=== PATIENT | female | born 1950 | race Caucasian/White ===

== ENCOUNTER → 2023-12-28 11:34 | Outpatient (REF) | payer MEDICARE, OTHER, SELFPAY ==
[2023-12-28 12:02] LABS: % Basophils 0.5 % (0-2); % Eosinophils 2.9 % (0-6); % Immature Granulocytes 0.7 % (0-0.5); % Lymphocytes 30.1 % (20.5-51.1); % Monocytes 9.3 % (1.7-9.3); % Neutrophils 56.5 % (42.2-75.2); Absolute Eosinophils 0.2 10^3/uL (0-0.7); Absolute Lymphocytes 1.8 10^3/uL (1.2-3.4); Absolute Monocytes 0.6 10^3/uL (0.1-0.6); Absolute Neutrophils 3.5 10^3/uL (1.4-6.5); Hematocrit 34.3 % (37.0-47.0); Hemoglobin 11.8 g/dL (12.0-16.0); Mean Corp Hgb Conc. 34.4 g/dL (33.0-37.0); Mean Corpuscular Hgb 31.5 pg (27.0-31.0); Mean Corpuscular Volume 91.5 fL (81.0-99.0); Mean Platelet Volume 9.1 fL (7.4-10.4); Nucleated Red Blood Cells % 0 %; Platelet Count 397 10^3/uL (130-400); Red Blood Cell Count 3.75 10^6/uL (4.20-5.40); Red Cell Dist. Width 12.4 % (11.5-14.5); White Blood Cell Count 6.1 10^3/uL (4.8-10.8)
[2023-12-28 12:55] LABS: ALT (SGPT) 15 U/L (0-35); AST (SGOT) 18 U/L (14-36); Albumin 3.9 g/dl (3.5-5.0); Alkaline Phosphatase 65 U/L (38-126); Blood Urea Nitrogen 15 mg/dl (7-17); Calcium 9.4 mg/dl (8.4-10.2); Carbon Dioxide 23 mmol/L (22-30); Chloride 105 mmol/L (98-107); Glucose 101 mg/dl (70-99); Potassium 4.5 mmol/L (3.5-5.1); Sodium 138 mmol/L (135-145); Total Bilirubin 0.6 mg/dl (0.2-1.3); Total Protein 6.9 g/dl (6.3-8.2); eGFR > 60.00
== END ==
LOC: OLABPV 11:34
PROVIDERS: ATTENDING PHYSICIAN Physician Assistant
DX: E21.3 Hyperparathyroidism, unspecified (principal); E55.9 Vitamin D deficiency, unspecified; E89.2 Postprocedural hypoparathyroidism; M81.0 Age-related osteoporosis without current pathological fracture; S82.891S Other fracture of right lower leg, sequela; Z51.81 Encounter for therapeutic drug level monitoring; Z98.1 Arthrodesis status
CPT/HCPCS: 36415; 80053; 82306; 85025

== ENCOUNTER 2024-06-27 08:43 | Outpatient (RCR) | payer MEDICARE, OTHER, SELFPAY | END 2024-06-27 23:59 | disposition home or self-care (01) | LOC: RPT 08:43 | PROVIDERS: ATTENDING PHYSICIAN Student in an Organized Health Care Education/Training Program; FAMILY PHYSICIAN Internal Medicine Geriatric Medicine | DX: I89.0 Lymphedema, not elsewhere classified (principal); M25.571 Pain in right ankle and joints of right foot; M79.89 Other specified soft tissue disorders; Z73.6 Limitation of activities due to disability; R26.2 Difficulty in walking, not elsewhere classified | CPT/HCPCS: 97110; 97162; 97535 ==

== ENCOUNTER 2024-07-04 08:30 | Outpatient (RCR) | payer MEDICARE, OTHER, SELFPAY | END 2024-07-04 09:38 | disposition home or self-care (01) | LOC: RPT 08:30 | PROVIDERS: ATTENDING PHYSICIAN Student in an Organized Health Care Education/Training Program; FAMILY PHYSICIAN Internal Medicine Geriatric Medicine | DX: M25.571 Pain in right ankle and joints of right foot (principal); I89.0 Lymphedema, not elsewhere classified; M79.89 Other specified soft tissue disorders | CPT/HCPCS: 97110; 97535 ==

== ENCOUNTER → 2024-09-17 08:07 | Outpatient (REF) | payer MEDICARE, OTHER, SELFPAY | LOC: RAD 08:07 | PROVIDERS: ATTENDING PHYSICIAN Internal Medicine Rheumatology; FAMILY PHYSICIAN Internal Medicine Geriatric Medicine | DX: M81.0 Age-related osteoporosis without current pathological fracture (principal) | CPT/HCPCS: 77080 ==

== ENCOUNTER → 2024-09-21 09:54 | Outpatient (REF) | payer MEDICARE, OTHER, SELFPAY ==
[2024-09-21 10:56] LABS: % Basophils 0.6 % (0-2); % Eosinophils 3.4 % (0-6); % Immature Granulocytes 0.5 % (0-0.5); % Monocytes 6.4 % (1.7-9.3); % Neutrophils 71.1 % (42.2-75.2); Absolute Basophils 0.1 10^3/uL (0-0.2); Absolute Eosinophils 0.3 10^3/uL (0-0.7); Absolute Lymphocytes 1.6 10^3/uL (1.2-3.4); Absolute Monocytes 0.6 10^3/uL (0.1-0.6); Absolute Neutrophils 6.1 10^3/uL (1.4-6.5); Hematocrit 33.1 % (37.0-47.0); Hemoglobin 10.9 g/dL (12.0-16.0); Mean Corp Hgb Conc. 32.9 g/dL (33.0-37.0); Mean Corpuscular Hgb 28.7 pg (27.0-31.0); Mean Corpuscular Volume 87.1 fL (81.0-99.0); Mean Platelet Volume 9.7 fL (7.4-10.4); Nucleated Red Blood Cells % 0 %; Platelet Count 409 10^3/uL (130-400); Red Cell Dist. Width 13.1 % (11.5-14.5); White Blood Cell Count 8.6 10^3/uL (4.8-10.8)
[2024-09-21 10:58] LABS: Urine Albumin Negative (Neg - Trace); Urine Bilirubin Negative (Negative); Urine Character Clear (Clear); Urine Color Yellow; Urine Glucose Negative (Negative); Urine Ketone Negative (Negative); Urine Leukocyte Negative (Negative); Urine Nitrite Negative (Negative); Urine Occult Blood Negative (Negative); Urine Specific Gravity 1.025 (<1.030); Urine Urobilinogen Negative (Neg - 1+)
[2024-09-21 11:24] LABS: Ionized Calcium 1.32 mMOL/L (1.15-1.33)
[2024-09-21 11:31] LABS: ALT (SGPT) 13 U/L (0-35); AST (SGOT) 16 U/L (14-36); Albumin 4.2 g/dl (3.5-5.0); Alkaline Phosphatase 62 U/L (38-126); Blood Urea Nitrogen 22 mg/dl (7-17); Calcium 10.3 mg/dl (8.4-10.2); Carbon Dioxide 22 mmol/L (22-30); Chloride 105 mmol/L (98-107); Creatine Phosphokinase 27 U/L (30-135); Glucose 103 mg/dl (70-99); HDL Cholesterol 44 mg/dl; Iron 45 ug/dl (37-170); LDL Cholesterol, Calculated 165 mg/dl; Magnesium 1.3 mg/dl (1.6-2.3); Potassium 4.6 mmol/L (3.5-5.1); Sodium 141 mmol/L (135-145); Total Bilirubin 0.4 mg/dl (0.2-1.3); Total Cholesterol 249 mg/dl (50-199); Total Protein 7.2 g/dl (6.3-8.2); Triglyceride 202 mg/dl (10-149); Very Low Density Lipoprotein 40 mg/dl (0-30); eGFR 59.49
[2024-09-21 12:02] LABS: TSH Reflex To Free T4 3.75 uIU/ml (0.47-4.68)
[2024-09-21 12:45] LABS: Folate 8.7 ng/ml (2.76-20); Vitamin B12 504 pg/ml (239-931)
[2024-09-21 16:32] LABS: Percent Saturation 14 % (20-50); Total Iron Binding Capacity 321 ug/dl (265-497)
[2024-09-22 08:46] LABS: Intact PTH 33.5 pg/ml (13.6-85.8)
[2024-09-22 23:25] LABS: Insulin, Random 12 uIU/mL
== END ==
LOC: OLABPV 09:54
PROVIDERS: ATTENDING PHYSICIAN Internal Medicine Geriatric Medicine
DX: F32.1 Major depressive disorder, single episode, moderate (principal); G47.00 Insomnia, unspecified; R25.1 Tremor, unspecified; E78.2 Mixed hyperlipidemia; S82.891D Other fracture of right lower leg, subsequent encounter for closed fracture with routine healing; R42 Dizziness and giddiness; I48.0 Paroxysmal atrial fibrillation; R53.83 Other fatigue; F41.9 Anxiety disorder, unspecified; Z23 Encounter for immunization; Z13.89 Encounter for screening for other disorder; I67.1 Cerebral aneurysm, nonruptured; E21.3 Hyperparathyroidism, unspecified; E74.39 Other disorders of intestinal carbohydrate absorption; N95.1 Menopausal and female climacteric states; F34.1 Dysthymic disorder; F39 Unspecified mood [affective] disorder; I10 Essential (primary) hypertension; Z79.899 Other long term (current) drug therapy
CPT/HCPCS: 80053; 80061; 81003; 82306; 82330; 82533; 82550; 82607; 82746; 83036; 83525; 83540; 83550; 83735; 83970; 84443; 85025; 86140

== ENCOUNTER → 2024-12-08 09:00 | Outpatient (REF) | payer MEDICARE, OTHER, SELFPAY | LOC: RAD 09:00 | PROVIDERS: ATTENDING PHYSICIAN Specialist/Technologist Athletic Trainer; FAMILY PHYSICIAN Internal Medicine Geriatric Medicine | DX: S82.891D Other fracture of right lower leg, subsequent encounter for closed fracture with routine healing (principal) | CPT/HCPCS: 73700 ==

== ENCOUNTER → 2024-12-12 11:21 | Outpatient (REF) | payer MEDICARE, OTHER, SELFPAY ==
[2024-12-12 12:35] LABS: Erythrocyte Sed Rate 49 mm/hour (0-20)
[2024-12-12 12:38] LABS: ALT (SGPT) 13 U/L (0-35); AST (SGOT) 16 U/L (14-36); Albumin 4.2 g/dl (3.5-5.0); Alkaline Phosphatase 70 U/L (38-126); Blood Urea Nitrogen 16 mg/dl (7-17); Calcium 9.1 mg/dl (8.4-10.2); Carbon Dioxide 25 mmol/L (22-30); Chloride 103 mmol/L (98-107); Glucose 108 mg/dl (70-99); Phosphorus 2.4 mg/dl (2.5-4.5); Potassium 4.2 mmol/L (3.5-5.1); Sodium 140 mmol/L (135-145); Total Bilirubin 0.4 mg/dl (0.2-1.3); eGFR > 60.00
[2024-12-12 12:46] LABS: Vitamin D, 25-OH*** 34.7 ng/mL (30-80)
[2024-12-12 12:59] LABS: TSH 3.42 uIU/ml (0.47-4.68)
[2024-12-14 07:12] LABS: Gliadin Peptide (DGP) Ab, IgA <0.72 FLU (0.00-4.99)
== END ==
LOC: OLABPV 11:21
PROVIDERS: ATTENDING PHYSICIAN Specialist/Technologist Athletic Trainer
DX: S82.891D Other fracture of right lower leg, subsequent encounter for closed fracture with routine healing (principal); M81.0 Age-related osteoporosis without current pathological fracture; E03.9 Hypothyroidism, unspecified
CPT/HCPCS: 36415; 80053; 82306; 83970; 84100; 84443; 85652; 86258

== ENCOUNTER → 2025-01-04 12:46 | Outpatient (REF) | payer MEDICARE, OTHER, SELFPAY ==
[2025-01-04 13:10] LABS: % Basophils 0.4 % (0-2); % Eosinophils 4.2 % (0-6); % Immature Granulocytes 0.9 % (0-0.5); % Lymphocytes 20.3 % (20.5-51.1); % Monocytes 9.8 % (1.7-9.3); % Neutrophils 64.4 % (42.2-75.2); Absolute Eosinophils 0.3 10^3/uL (0-0.7); Absolute Immature Granulocytes 0.1 10^3/uL (0-0.05); Absolute Lymphocytes 1.4 10^3/uL (1.2-3.4); Absolute Monocytes 0.7 10^3/uL (0.1-0.6); Absolute Neutrophils 4.4 10^3/uL (1.4-6.5); Hematocrit 32.6 % (37.0-47.0); Hemoglobin 10.5 g/dL (12.0-16.0); Mean Corp Hgb Conc. 32.2 g/dL (33.0-37.0); Mean Corpuscular Volume 90.1 fL (81.0-99.0); Mean Platelet Volume 9.4 fL (7.4-10.4); Nucleated Red Blood Cells % 0 %; Platelet Count 405 10^3/uL (130-400); Red Blood Cell Count 3.62 10^6/uL (4.20-5.40); Red Cell Dist. Width 13.3 % (11.5-14.5); White Blood Cell Count 6.9 10^3/uL (4.8-10.8)
[2025-01-04 14:05] LABS: Iron 62 ug/dl (37-170)
[2025-01-04 14:14] LABS: Percent Saturation 19 % (20-50); Total Iron Binding Capacity 322 ug/dl (265-497)
[2025-01-04 14:41] LABS: Ferritin 9.5 ng/ml (11.1-264.0)
== END ==
LOC: OLABPV 12:46
PROVIDERS: ATTENDING PHYSICIAN Internal Medicine Geriatric Medicine
DX: F32.1 Major depressive disorder, single episode, moderate (principal); G47.00 Insomnia, unspecified; R25.1 Tremor, unspecified; S82.891D Other fracture of right lower leg, subsequent encounter for closed fracture with routine healing; E78.2 Mixed hyperlipidemia; R42 Dizziness and giddiness; I48.0 Paroxysmal atrial fibrillation; R53.83 Other fatigue; F41.9 Anxiety disorder, unspecified; Z13.89 Encounter for screening for other disorder; I67.1 Cerebral aneurysm, nonruptured; E21.3 Hyperparathyroidism, unspecified; E74.39 Other disorders of intestinal carbohydrate absorption; N95.1 Menopausal and female climacteric states; F34.1 Dysthymic disorder; F39 Unspecified mood [affective] disorder; I10 Essential (primary) hypertension; M54.50 Low back pain, unspecified; E61.1 Iron deficiency
CPT/HCPCS: 36415; 82728; 83540; 83550; 85025

== ENCOUNTER → 2025-01-30 09:45 | Outpatient (REF) | payer MEDICARE, OTHER, SELFPAY ==
[2025-01-30 11:28] LABS: Vitamin D, 25-OH*** 39.3 ng/mL (30-80)
[2025-01-30 11:46] LABS: Intact PTH 152.2 pg/ml (13.6-85.8); TSH 3.81 uIU/ml (0.47-4.68)
[2025-01-30 13:32] LABS: Erythrocyte Sed Rate 43 mm/hour (0-20)
== END ==
LOC: OLABPV 09:45
PROVIDERS: ATTENDING PHYSICIAN Specialist/Technologist Athletic Trainer; FAMILY PHYSICIAN Internal Medicine Geriatric Medicine; REFERRING PHYSICIAN Psychiatry & Neurology Psychiatry
DX: S82.891D Other fracture of right lower leg, subsequent encounter for closed fracture with routine healing (principal); M81.0 Age-related osteoporosis without current pathological fracture; E34.9 Endocrine disorder, unspecified; E55.9 Vitamin D deficiency, unspecified; Z79.899 Other long term (current) drug therapy; M02.9 Reactive arthropathy, unspecified; R53.82 Chronic fatigue, unspecified
CPT/HCPCS: 36415; 82306; 82652; 83970; 84443; 85652; 86038

== ENCOUNTER → 2025-02-19 11:03 | Outpatient (REF) | payer MEDICARE, OTHER, SELFPAY ==
[2025-02-19 12:05] LABS: ALT (SGPT) 18 U/L (0-35); AST (SGOT) 19 U/L (14-36); Albumin 4.6 g/dl (3.5-5.0); Alkaline Phosphatase 75 U/L (38-126); Blood Urea Nitrogen 20 mg/dl (7-17); Calcium 9.9 mg/dl (8.4-10.2); Carbon Dioxide 23 mmol/L (22-30); Chloride 105 mmol/L (98-107); Glucose 120 mg/dl (70-99); Potassium 4.4 mmol/L (3.5-5.1); Sodium 142 mmol/L (135-145); Total Bilirubin 0.5 mg/dl (0.2-1.3); Total Protein 7.6 g/dl (6.3-8.2); eGFR 59.12
[2025-02-20 08:50] LABS: Intact PTH 85.2 pg/ml (13.6-85.8)
[2025-02-21 04:41] LABS: IgA 288 mg/dl (70-400)
[2025-02-21 16:06] LABS: Endomysial IgA Antibody Titer <1:10 (<1:10)
[2025-02-21 18:38] LABS: tTG IgA Antibody <1.02 FLU (0.00-4.99)
== END ==
LOC: OLABPV 11:03
PROVIDERS: ATTENDING PHYSICIAN Physician Assistant
DX: E34.9 Endocrine disorder, unspecified (principal)
CPT/HCPCS: 36415; 80053; 82784; 83516; 83970; 86231

== ENCOUNTER → 2025-02-28 13:41 | Outpatient (REF) | payer MEDICARE, OTHER, SELFPAY ==
[2025-02-28 14:21] LABS: 24 Hour Urine Total Volume 175 ml
[2025-02-28 15:10] LABS: 24 Hour Urine Creatinine 0.348 gm/day (0.8-1.8)
[2025-02-28 15:11] LABS: 24 Hour Urine Calcium 17.3 mg/day; Urine Calcium 9.9 mg/dl
== END ==
LOC: OLABPV 13:41
PROVIDERS: ATTENDING PHYSICIAN Physician Assistant
DX: E34.9 Endocrine disorder, unspecified (principal)
CPT/HCPCS: 81050; 82340; 82570

== ENCOUNTER → 2025-03-05 07:17 | Outpatient (REF) | payer MEDICARE, OTHER, SELFPAY | LOC: RAD 07:17 | PROVIDERS: ATTENDING PHYSICIAN Physician Assistant; FAMILY PHYSICIAN Internal Medicine Geriatric Medicine | DX: E34.9 Endocrine disorder, unspecified (principal); E04.1 Nontoxic single thyroid nodule | CPT/HCPCS: 76536 ==

== ENCOUNTER 2025-04-30 10:28 | Emergency (ER) | payer MEDICARE, OTHER, SELFPAY ==
[2025-04-30 11:51] VITALS: BP 109/74
[2025-04-30 11:52] VITALS: BMI 31.5
[2025-04-30 11:54] VITALS: BP 109/74
[2025-04-30 12:00] VITALS: BP 111/82
--- NOTE | 2025-04-30 12:06 | ED.GENMED ---
History of Present Illness
General
Chief Complaint: Back Pain
Time Seen by Provider: 04/30/25 12:06
History of Present Illness
History of Present Illness:
TIME OF INITIAL ENCOUNTER: 12:08 PM
HPI: Patient was at her primary care doctor's office for a routine visit. She was found to have blood pressures of 80s over 50s. She reports chronic low back pain as well as other pains including ongoing pain from a left ankle. Of note, the
patient states that she is been taking excessive Aleve including 7 Aleve this morning for her chronic pain. She states that despite taking this her pain persists.
EXAM:
GENERAL: Well appearing in no distress, elevated BMI, normotensive
HEENT: Moist oral mucosa
CARDIOVASCULAR: No murmurs, normal heart rate, regular rhythm, No chest wall tenderness
PULMONARY: No respiratory distress, breath sounds are clear and equal
ABDOMEN: Soft with no peritoneal signs, moderate diffuse abdominal tenderness
NEUROLOGIC: Excellent strength all extremities, no coordination deficits
BACK: Decreased active range of motion of the thoracolumbar spine
PSYCHIATRIC: Appropriate mental status, normal insight and judgement
EXTREMITIES: Nontender, no edema, moves all extremities equally
SKIN: No rash, no lesions
NUMBER AND COMPLEXITY OF PROBLEMS ADDRESSED AT THE ENCOUNTER
� Chronic conditions affecting care: History of subdural hematoma, A-fib, history of alcohol abuse
� Acute Exacerbation and/or Progression of Chronic Illness: The hypotension is an acute problem but the pain is chronic
� Differential Diagnosis includes: Dehydration, NSAID misuse, SHARIF, AAA
AMOUNT AND/OR COMPLEXITY OF DATA TO BE REVIEWED AND ANALYZED
� I performed an independent evaluation of and my interpretation is:
EKG:
CT: CT shows degenerative disease of the lumbar spine but shows no acute abnormality in the abdomen pelvis.
X-rays:
Laboratory Studies: White count normal, hemoglobin 10.8, creatinine 1.4 which is new
Other:
� Review of other/old records: I reviewed records, the patient has had encounters for alcohol abuse in the past
� Clinical information was obtained by an independent historian: None needed
� Prescriptions/Medications Considered but not given: Considered narcotics however the patient states she will try Salonpas and stop NSAIDs
� Further testing considered but not performed:
RISK OF COMPLICATIONS AND/OR MORBIDITY OR MORTALITY OF PATIENT MANAGEMENT
� Social determinants of health affecting care: Lives at home
� Discussion with other providers:
� Escalation of care including admission/observation vs risk of discharge considered: New renal insufficiency is noted. Encourage holding of NSAIDs. She was given IV fluids. BP has been stable in the emergency department.
ANY OTHER UPDATES:
Encouraged patient to not use NSAIDs further as she does have renal insufficiency. She has been normotensive to hypertensive in the emergency department. The patient states she will stop taking NSAIDs and use Salonpas.
Past History
Past History
ED Past Medical History: Arrthythmia, GERD, Hypercholesterolemia, Psychiatric, Other (parathyroid tumor) and Other (tachycardia)
ED Past Surgical History: Cardiac (ablation), Orthopedic and Other (parathyroid resection)
Social History
Tobacco: Non-smoker
Alcohol: None (pt states that she drinks 1-2 beers/day, but has not had an etoh drink since 01/14)
Drug: None
Personal: Single
Living: alone
Employment: Employed
Family History
Family History: Hypertension
Phy Exam
Physical Exam
Physical Exam:
See HPI
Course
Orders/Labs/Results
Orders:
Orders
04/30/25 12:13
CT Abd/pel Without Iv Or Oral Urgent
Comment:
Reason For Exam: abd and back pain
0.9% Sodium Chloride 1000 ml [Nss] 1,000 ml IV BOLUS
04/30/25 12:25
Complete Blood Count/With Diff Urgent
Comprehensive Metabolic Panel Urgent
Abnormal Lab Results
04/30/25
12:25
RBC 3.80 L 10^6/uL
(4.20-5.40)
Hgb 10.8 L g/dL
(12.0-16.0)
Hct 32.9 L %
(37.0-47.0)
MCHC 32.8 L g/dL
(33.0-37.0)
Plt Count 430 H 10^3/uL
(130-400)
Abs Immat Gran (auto) 0.1 H 10^3/uL
(0-0.05)
Absolute Neuts (auto) 8.1 H 10^3/uL
(1.4-6.5)
Absolute Lymphs (auto) 1.1 L 10^3/uL
(1.2-3.4)
Absolute Monos (auto) 0.7 H 10^3/uL
(0.1-0.6)
Immature Gran % 0.6 H %
(0-0.5)
Neutrophils % 80.1 H %
(42.2-75.2)
Lymphocytes % 10.6 L %
(20.5-51.1)
BUN 24 H mg/dl
(7-17)
Creatinine 1.4 H mg/dL
(0.6-1.0)
Glucose 127 H mg/dl
(70-99)
Calcium 10.9 H mg/dl
(8.4-10.2)
04/30/25 12:25
04/30/25 12:25
Vital Signs
Initial and Last Documented VS:
Initial Vital Signs
Temp Pulse Resp Pulse Ox
36.4 C 96 16 96
04/30/25 10:32 04/30/25 10:32 04/30/25 10:32 04/30/25 10:32
Last Documented Vital Signs
Temp Pulse Resp BP Pulse Ox
36.4 C 92 12 147/90 95
04/30/25 10:32 04/30/25 15:15 04/30/25 12:45 04/30/25 14:30 04/30/25 13:45
*Critical Care Note
Total Time (30-74mins, 75-104mins- exclusive of procedures): Not Applicable
ED Attending Note
-
Portions of this chart may have been created with voice recognition software.� Occasional wrong word or��sound alike� substitutions may have occurred due to the inherent limitations of voice recognition software.
Discharge Plan
Departure
Patient Disposition: Home (Routine Discharge)
Date of Disposition: 04/30/25
Time of Disposition: 15:31
Patient with high blood pressure during this ER visit?: Yes
Discharge Problem:
Acute renal insufficiency
Instructions: Acute kidney injury, Low Back Pain (DC), BLOOD PRESSURE
Prescriptions:
No Action
simvastatin 20 MG tablet
20 mg PO HS
omeprazole 20 MG tablet,delayed release (DR/EC)
20 mg PO DAILY
ibandronate [Boniva] 150 MG tablet
100 mg PO MONTHLY
sertraline 50 MG tablet
25 mg PO HS
zolpidem 5 MG tablet
10 mg PO HS Qty: 3 0RF
trazodone 100 mg Tablet
200 mg PO HS
Vitamin D3
1 tab PO DAILY
buspirone 15 mg Tablet
15 mg PO HS
naproxen sodium [Aleve] 220 mg Tablet
660 mg PO DAILY
Referrals:
Axel Matute MD [Family Provider, Internal Medicine]
Activity Restrictions/Additional Instructions:
Your white blood cell count is normal. Your kidney function is somewhat impaired with a creatinine of 1.4. You should stop taking the Aleve. Your blood pressures here were normal. The CAT scan shows no acute abnormality of the abdomen pelvis
however the CAT scan does show moderate disc bulge at L4-5 with moderate canal stenosis and moderate bilateral neural foraminal narrowing, there is also mild compression fractures of T12 and L2 which is uncertain as to how long this has been
present.
Interventions
Interventions:
*Risk Screen - Suicide Last Done: 04/30/25 10:32
*General Assessment Last Done: 04/30/25 10:32
*Neglect/Abuse Screening Last Done: 04/30/25 10:32
*ED- Fall Risk Assessment Last Done: 04/30/25 11:53
*ED COVID-19 Vaccine History Last Done: 04/30/25 11:53
ED-Musculoskeletal Assessment Last Done: 04/30/25 11:55
Discharge Date and Time
Print Language: [place] LUCI[place]
[2025-04-30] MEDS: NSS 1000 IV (12:27)
[2025-04-30 12:36] LABS: % Basophils 0.3 % (0-2); % Eosinophils 1.2 % (0-6); % Immature Granulocytes 0.6 % (0-0.5); % Lymphocytes 10.6 % (20.5-51.1); % Monocytes 7.2 % (1.7-9.3); % Neutrophils 80.1 % (42.2-75.2); Absolute Eosinophils 0.1 10^3/uL (0-0.7); Absolute Immature Granulocytes 0.1 10^3/uL (0-0.05); Absolute Lymphocytes 1.1 10^3/uL (1.2-3.4); Absolute Monocytes 0.7 10^3/uL (0.1-0.6); Absolute Neutrophils 8.1 10^3/uL (1.4-6.5); Hematocrit 32.9 % (37.0-47.0); Hemoglobin 10.8 g/dL (12.0-16.0); Mean Corp Hgb Conc. 32.8 g/dL (33.0-37.0); Mean Corpuscular Hgb 28.4 pg (27.0-31.0); Mean Corpuscular Volume 86.6 fL (81.0-99.0); Nucleated Red Blood Cells % 0 %; Platelet Count 430 10^3/uL (130-400); Red Cell Dist. Width 13.9 % (11.5-14.5); White Blood Cell Count 10.1 10^3/uL (4.8-10.8)
[2025-04-30 12:58] LABS: ALT (SGPT) 17 U/L (0-35); AST (SGOT) 22 U/L (14-36); Albumin 4.5 g/dl (3.5-5.0); Alkaline Phosphatase 78 U/L (38-126); Blood Urea Nitrogen 24 mg/dl (7-17); Calcium 10.9 mg/dl (8.4-10.2); Carbon Dioxide 23 mmol/L (22-30); Chloride 104 mmol/L (98-107); Estimated Creatinine Clearance 37 ml/min; Glucose 127 mg/dl (70-99); Potassium 3.9 mmol/L (3.5-5.1); Sodium 141 mmol/L (135-145); Total Bilirubin 0.9 mg/dl (0.2-1.3); Total Protein 7.4 g/dl (6.3-8.2); eGFR 39.48
[2025-04-30 13:00] VITALS: BP 110/80
[2025-04-30 14:30] VITALS: BP 147/90
== END 2025-04-30 16:02 | disposition home or self-care (01) ==
LOC: EMR 10:28
PROVIDERS: EMERGENCY PHYSICIAN Emergency Medicine; FAMILY PHYSICIAN Internal Medicine Geriatric Medicine
DX: N28.9 Disorder of kidney and ureter, unspecified (principal); M54.50 Low back pain, unspecified; M25.572 Pain in left ankle and joints of left foot; G89.29 Other chronic pain; E78.00 Pure hypercholesterolemia, unspecified; K21.9 Gastro-esophageal reflux disease without esophagitis
CPT/HCPCS: 99284; 96360; 74176; 80053; 85025

== ENCOUNTER → 2025-05-22 09:26 | Outpatient (REF) | payer MEDICARE, OTHER, SELFPAY ==
[2025-05-22 09:57] VITALS: BP 130/101; BP_SYST 80
== END ==
LOC: RADI 09:26
PROVIDERS: ATTENDING PHYSICIAN Physician Assistant; FAMILY PHYSICIAN Internal Medicine Geriatric Medicine
DX: E04.1 Nontoxic single thyroid nodule (principal)
CPT/HCPCS: 10005; 88173

== ENCOUNTER → 2025-06-05 11:10 | Outpatient (REF) | payer MEDICARE, OTHER, SELFPAY ==
[2025-06-05 12:15] LABS: Hematocrit 33.8 % (37.0-47.0); Hemoglobin 10.5 g/dL (12.0-16.0); Mean Corp Hgb Conc. 31.1 g/dL (33.0-37.0); Mean Corpuscular Volume 89.7 fL (81.0-99.0); Nucleated Red Blood Cells % 0 %; Platelet Count 459 10^3/uL (130-400); Red Cell Dist. Width 13.8 % (11.5-14.5)
[2025-06-05 13:43] LABS: ALT (SGPT) 17 U/L (0-35); AST (SGOT) 18 U/L (14-36); Albumin 4.5 g/dl (3.5-5.0); Alkaline Phosphatase 65 U/L (38-126); Blood Urea Nitrogen 13 mg/dl (7-17); Calcium 9.8 mg/dl (8.4-10.2); Carbon Dioxide 24 mmol/L (22-30); Chloride 104 mmol/L (98-107); Glucose 117 mg/dl (70-99); HDL Cholesterol 50 mg/dl; Iron 48 ug/dl (37-170); LDL Cholesterol, Calculated 111 mg/dl; Potassium 3.9 mmol/L (3.5-5.1); Sodium 139 mmol/L (135-145); Total Protein 7.6 g/dl (6.3-8.2); Very Low Density Lipoprotein 29 mg/dl (0-30); eGFR 59.12
[2025-06-05 13:54] LABS: Total Iron Binding Capacity 373 ug/dl (265-497)
[2025-06-05 14:04] LABS: Urine Character Clear (Clear)
[2025-06-05 14:25] LABS: Ferritin 8.1 ng/ml (11.1-264.0)
[2025-06-07 02:00] LABS: Thyroglobulin 78.0 ng/mL (1.3-31.8); Thyroglobulin Antibodies <1.5 IU/mL (0.0-4.0)
== END ==
LOC: OLABPV 11:10
PROVIDERS: ATTENDING PHYSICIAN Physician Assistant; FAMILY PHYSICIAN Internal Medicine Geriatric Medicine
DX: I48.0 Paroxysmal atrial fibrillation (principal); R56.9 Unspecified convulsions; F32.1 Major depressive disorder, single episode, moderate; F10.20 Alcohol dependence, uncomplicated; E86.1 Hypovolemia; E21.3 Hyperparathyroidism, unspecified; E21.0 Primary hyperparathyroidism; E04.1 Nontoxic single thyroid nodule; E61.1 Iron deficiency; E03.1 Congenital hypothyroidism without goiter
CPT/HCPCS: 36415; 80053; 80061; 81003; 82330; 82728; 83540; 83550; 84432; 85025; 86376; 86800

== ENCOUNTER → 2025-07-04 10:23 | Outpatient (REF) | payer MEDICARE, OTHER, SELFPAY | LOC: RCS 10:23 | PROVIDERS: ATTENDING PHYSICIAN Nurse Practitioner Family; FAMILY PHYSICIAN Internal Medicine Geriatric Medicine | DX: Z01.818 Encounter for other preprocedural examination (principal); I48.0 Paroxysmal atrial fibrillation; I10 Essential (primary) hypertension | CPT/HCPCS: 93005 ==

== ENCOUNTER 2025-07-09 06:18 | Day surgery (SDC) | payer MEDICARE, OTHER, SELFPAY ==
[2025-07-09] VITALS (22 sets, daily range): BP systolic 106–149; BP diastolic 70–108
[2025-07-09] MEDS: NEURONTIN 300 MG PO (11:33)
[2025-07-09] MEDS: TYLENOL 1000 MG PO (11:33)
[2025-07-09] MEDS: NORMOSOL-R/PLASMALYTE-A 1000 IV (11:34)
[2025-07-09] MEDS: HEPARIN 5000 UNITS SC (13:28)
[2025-07-09 15:07] LABS: Turbo PTH 268.0 pg/ml (13.6-85.8)
[2025-07-09 16:27] LABS: Turbo PTH 12.8 pg/ml (13.6-85.8)
--- NOTE | 2025-07-09 16:28 | OR.RPT ---
Operative Report
Operative Report
DATE OF OPERATION: July 09, 2025
PREOPERATIVE DIAGNOSIS: Thyroid Cancer - C73 & Hyperparathyroidism - E210
POSTOPERATIVE DIAGNOSIS: Same
SURGEON: Lloyd Dos Santos M.D.
OPERATION: Total Thyroidectomy, Limited Neck Dissection � 41923
Left Superior Parathyroidectomy � 17400
Autotransplant of left inferior parathyroid gland - 19237
ANESTHESIA: GET
ESTIMATED BLOOD LOSS: 5 cc
DRAINS: None
SPECIMEN: total thyroid, level paratracheal tissue, left superior neck nodule, r/o parathyroid adenoma
FINDINGS: Left upper pole cancer invading the overlying muscle and enlarged left superior parathyroid gland. Scar in both sides of the neck from her previous neck surgery
COMPLICATIONS: None
PROCEDURE:
The patient was taken to the operating room and placed in the usual supine position. After adequate general endotracheal anesthesia was established, the patient�s neck was extended, prepped, and draped in the typical sterile fashion. A 5 cm
transcervical incision was made two fingerbreadths above the sternal notch. The skin incision was made with the #15 blade, which was taken through the skin into the subcutaneous tissue. The underlying platysma muscle was divided, and subplatysmal
flaps were created superiorly to the thyroid cartilage and inferiorly to the sternal notch. Strap muscles were identified and at the midline.
Attention was turned to the patient�s left thyroid lobe. The left thyroid lobe was mobilized medially. During this process, the left middle thyroid vein and inferior thyroid artery were dissected and ligated with Ligasure. A hard tumor in the
superior pole was identified and noted to be invading the left strap muscle, which was partially resected with the tumor as an en bloc resection. Next, the left superior pole was taken down by dissecting and transecting the superior pole vessels
with a Ligasure. The left thyroid lobe was mobilized medially. During this process, the left recurrent laryngeal nerve was identified and preserved throughout its entire course. The left superior and inferior parathyroid glands were identified and
preserved. The superior parathyroid gland was noted to be enlarged and was excised and sent to the pathology department, which showed a hypercellular parathyroid gland weighing 49 mg.
With the findings of a left superior tumor grossly involving the overlying muscle, a decision was made to remove the right thyroid lobe as well. The right thyroid lobe was mobilized medially. During this process, the right middle thyroid vein and
inferior thyroid artery were dissected and ligated with Ligasure. Next, the right superior pole was taken down by dissecting and transecting the superior pole vessels with a Ligasure. No obvious parathyroid glands were identified. The total thyroid
was removed and sent to the pathology department.
At this time, the neck dissection was performed. The tissue between the left carotid artery to the trachea into the anterior mediastinum was carefully dissected. The previously identified recurrent laryngeal nerve and parathyroid glands were
preserved. Also, some right paratracheal tissue was removed. The tissue was removed and sent to the pathology department.
After obtaining adequate hemostasis, the strap muscle was approximated with #3-0 Vicryl in a running fashion, and the platysma muscles were reapproximated with #3-0 Vicryl in an interrupted fashion, and the skin was approximated with #4-0 Monocryl
in a running subcuticular fashion. Steri-strips and sterile dressings were placed. The patient tolerated the procedure well. The final instrument, needle, and sponge counts were correct.
[2025-07-09] MEDS: DILAUDID 0.5 MG IV ×3 (17:45→20:28)
[2025-07-09 19:10] LABS: ALT (SGPT) 16 U/L (0-35); AST (SGOT) 24 U/L (14-36); Albumin 4.2 g/dl (3.5-5.0); Alkaline Phosphatase 74 U/L (38-126); Blood Urea Nitrogen 14 mg/dl (7-17); Calcium 8.3 mg/dl (8.4-10.2); Carbon Dioxide 22 mmol/L (22-30); Chloride 107 mmol/L (98-107); Estimated Creatinine Clearance 63 ml/min; Glucose 140 mg/dl (70-99); Potassium 4.8 mmol/L (3.5-5.1); Sodium 137 mmol/L (135-145); Total Protein 7.1 g/dl (6.3-8.2); eGFR > 60.00
[2025-07-09] MEDS: AMBIEN 10 MG PO (22:44)
[2025-07-09] MEDS: CELEBREX 200 MG PO (22:44)
[2025-07-09] MEDS: COLACE 100 MG PO (22:44)
[2025-07-09] MEDS: TYLENOL PO (23:27)
[2025-07-10] MEDS: TYLENOL PO (03:35)
[2025-07-10 07:13] LABS: ALT (SGPT) 17 U/L (0-35); AST (SGOT) 21 U/L (14-36); Albumin 4.2 g/dl (3.5-5.0); Alkaline Phosphatase 72 U/L (38-126); Blood Urea Nitrogen 22 mg/dl (7-17); Calcium 8.3 mg/dl (8.4-10.2); Carbon Dioxide 20 mmol/L (22-30); Chloride 107 mmol/L (98-107); Estimated Creatinine Clearance 46 ml/min; Glucose 135 mg/dl (70-99); Potassium 4.9 mmol/L (3.5-5.1); Sodium 139 mmol/L (135-145); Total Protein 7.2 g/dl (6.3-8.2); eGFR 52.73
[2025-07-10 07:25] VITALS: BP 124/76
[2025-07-10] MEDS: CELEBREX 200 MG PO (08:45)
[2025-07-10] MEDS: TYLENOL 650 MG PO ×2 (08:47→12:44)
[2025-07-10] MEDS: PROTONIX 40 MG PO (08:47)
[2025-07-10] MEDS: WELLBUTRIN XL (24 hour extended release) 300 MG PO (08:48)
--- NOTE | 2025-07-10 09:18 | CM ---
Cm reviewed medical records. CM met with patient in room. Patient confirmed demographics. Patient lives independently at [facility]. Patient had had a history of VN, and SNF at [facility]. Patient not currently not on service with any agency. Patient
relies on a walker when having to 'writing center director line' or long walking trips. Patient does have a history of alcohol detox at [facility].
Patient's brother will provide transportation home. Patient further stated that [facility] RN will 'check on her' as well.
Plan: Home, no needs.
--- NOTE | 2025-07-10 11:02 | W.DS.TRANS ---
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
-
Discharge Instructions:
Sleep Apnea Risk Intermediate
Discharge Diagnosis/Procedures thyroid cancer
Diet As tolerated
Activity As tolerated,No strenuous activity
Driving Restrictions No Driving for four days
Bathing Restrictions OK to Shower
Instructions:
Stand-Alone Forms:
Changes to Home Medications: Yes
Discharge Medications:
DC Medications w/original date entered in [employer]
omeprazole 20 mg tablet,delayed release 20 mg PO BID Gastrointestinal issue 10/15/16
simvastatin 20 mg tablet 20 mg PO HS High cholesterol 10/15/16
Bifidobacterium infantis 10.5 mg (10 million cell) chewable tablet (Align (B.infantis)) 10.5 mg PO DAILY 07/05/25
bupropion HCl 300 mg 24 hr tablet, extended release 300 mg PO DAILY 07/05/25
cholecalciferol (vitamin D3) 50 mcg (2,000 unit) capsule (Vitamin D3) 50 mcg PO DAILY 07/05/25
denosumab 60 mg/mL subcutaneous syringe (Prolia) 60 mg SC [id number] 07/05/25
dextroamphetamine-amphetamine 30 mg tablet (Adderall) 30 mg PO BID 07/05/25
docusate sodium 100 mg capsule (Colace) 100 mg PO HS 07/05/25
zolpidem 10 mg tablet (Ambien) 10 mg PO HS 07/05/25
desvenlafaxine succinate 100 mg tablet,extended release 24 hr 100 mg PO DAILY 07/09/25
Home Medication Changes
Pending Results: No
[2025-07-10] MEDS: SYNTHROID 100 MCG PO (11:26)
[2025-07-10] MEDS: TUMS EX (EXTRA STRENGTH) CHEWABLE TABLET 600 MG PO (11:31)
[2025-07-10 12:54] VITALS: BP 148/75
== END 2025-07-10 15:00 | disposition home or self-care (01) ==
LOC: SDS 06:18
PROVIDERS: ATTENDING PHYSICIAN Surgery
DX: C73 Malignant neoplasm of thyroid gland (principal); E21.3 Hyperparathyroidism, unspecified
CPT/HCPCS: 60252; 60500; 60512; 80053; 83970; 87070; 88305; 88307; 88331

== ENCOUNTER 2025-07-12 16:31 | Observation (INO) | payer MEDICARE, OTHER, SELFPAY ==
[2025-07-12 12:28] VITALS: BP 157/88; BMI 34.8
[2025-07-12] MEDS: SUBLIMAZE 50 MCG IV ×2 (13:21→15:13)
[2025-07-12] MEDS: OFIRMEV 100 IV (13:21)
[2025-07-12] MEDS: NSS 500 IV (13:24)
[2025-07-12 13:35] LABS: Hematocrit 28.7 % (37.0-47.0); Hemoglobin 9.1 g/dL (12.0-16.0); Mean Corp Hgb Conc. 31.7 g/dL (33.0-37.0); Mean Corpuscular Volume 87.0 fL (81.0-99.0); Nucleated Red Blood Cells % 0 %; Platelet Count 390 10^3/uL (130-400); Red Cell Dist. Width 13.8 % (11.5-14.5)
[2025-07-12 14:07] LABS: Blood Urea Nitrogen 14 mg/dl (7-17); Calcium 8.8 mg/dl (8.4-10.2); Carbon Dioxide 24 mmol/L (22-30); Chloride 104 mmol/L (98-107); Estimated Creatinine Clearance 65 ml/min; Glucose 115 mg/dl (70-99); Potassium 4.5 mmol/L (3.5-5.1); Sodium 138 mmol/L (135-145); eGFR > 60.00
[2025-07-12 14:14] VITALS: BP 137/88
--- NOTE | 2025-07-12 15:05 | ED.GENMED ---
History of Present Illness
General
Chief Complaint: Fall
Source: patient
Exam Limitations: none
Time Seen by Provider: 07/12/25 12:40
History of Present Illness
History of Present Illness:
Patient lost her balance and fell at home. Only complaining of severe left shoulder pain. No other injury or complaint. Denies syncope chest pain shortness of breath other extremity pain headache neck pain etc. No thinners. Pain is severe
however
Past History
Past History
ED Past Medical History: Arrthythmia, GERD, Hypercholesterolemia, Psychiatric, Other (parathyroid tumor) and Other (tachycardia)
ED Past Surgical History: Cardiac (ablation), Orthopedic and Other (parathyroid resection)
Social History
Tobacco: Non-smoker
Alcohol: None (pt states that she drinks 1-2 beers/day, but has not had an etoh drink since 01/14)
Drug: None
Personal: Single
Living: alone
Employment: Employed
Family History
Family History: Hypertension
Phy Exam
Physical Exam
Physical Exam:
GENERAL: Alert and oriented in no apparent distress
EYE: Orbits normal.
NECK: Supple, nontender
ENT: Steri-Strips over the anterior neck
CARDIAC: Regular rate and rhythm without any obvious murmurs.
LUNGS: Clear breath sounds,normal. No chest wall tenderness
ABDOMEN: Soft, without focal tenderness or distention
NEUROLOGICAL: Alert and oriented , grossly non-focal
SKIN: Warm and dry, no rash or lesion, no discoloration, skin intact.
MUSCULOSKELETAL: Significant tenderness over the proximal left humerus. Clavicle stable. Good distal pulses and color. All other extremities unremarkable
PSYCH: Normal and appropriate interaction.
Course
Orders/Labs/Results
Orders:
Orders
07/12/25 Breakfast
Regular
At Your Request: Full Participation
Does patient need a safe tray?: No
07/12/25 12:48
Humerus, Left 2 Views [CR Humerus - Left Min 2 Views*] Urgent
Comment:
Reason For Exam: trauma
Shoulder, Left 2 View CR [CR Shoulder - Left Min 2 View*] Urgent
Comment:
Reason For Exam: trauma
07/12/25 12:49
IV Insert/Care/Rem.- Treatment PRN
0.9% Sodium Chloride 500 ml [Nss] 500 ml IV BOLUS
Acetaminophen 1000MG/100Ml [Ofirmev] 1,000 mg in 100 ml IV ONCE
Acetaminophen IV Indication:: ED Narcotic Naive Pt-ONCE
07/12/25 12:50
Fentanyl Citrate/Pf [Sublimaze] 50 mcg IV NOW STA
07/12/25 13:25
Basic Metabolic Panel Urgent
Complete Blood Count/With Diff Urgent
07/12/25 15:05
Shoulder Immobilizer Left- Tx ONCE
07/12/25 15:09
Fentanyl Citrate/Pf [Sublimaze] 100 mcg .ROUTE .STK-MED ONE
07/12/25 15:12
Fentanyl Citrate/Pf [Sublimaze] 50 mcg IV NOW STA
07/12/25 15:47
Admit/Transfer Patient As Directed
Co-Sign Provider:
Level of Care: Observation services
Assign to:: Medical/Surgical
Physician / Group: ron mahajan
Diagnosis: proximal humerus fracture
PRN Pain Medication Management As Directed
May give lesser potent ordered pain med per pt: Yes
preference::
Protocol:: Medication orders for pain may be administered in a
manner that supports deferring to patient preference
when the pt is:
- Requesting an ordered lesser potent pain medication.
Least to most potent pain medications are defined
as: acetaminophen < NSAID < tramadol < opioids
(morphine, oxycodone, hydromorphone).
- Requesting a lesser dose of the same medication IF
ORDERED.
- Requesting a less intrusive route of administration
if both routes are prescribed by the provider (PO <
IV).
07/12/25 15:48
Code Status As Directed
Resuscitation Status: Do not resuscitate
Reached after discussion with pt or family/Healthcare POA: Yes
DNR Bracelet Application ONCE
07/12/25 17:00
Amphet Asp/Amphet/D-Amphet [Adderall] 30 mg PO BID AT 0800,1700
07/12/25 17:05
HYDROmorphone [Dilaudid] 0.5 mg IV Q4HPRN PRN
Magnesium Hydroxide [Milk of Magnesia] 30 ml PO DAILYPRN PRN
Oxycodone [Roxicodone] 5 mg PO Q4HPRN PRN
Tamsulosin [Flomax] 0.4 mg PO DAILYPRN PRN
07/12/25 17:05
ORTHOPEDIC CONSULT Routine
Consulting Provider: Josue Allred
Was physician already notified: Yes
Activity As Directed
Activity Level: As Tolerated
Bladder Scan As Directed
Follow Bladder Retention/Intermittent Cath Algorithm?: Yes
PRN if no void in __ hours: 6
Comment: if not voiding 6 hrs upon arrival to floor, bladder scan & follow algorithm
Intake/ Output As Directed
Frequency: Per unit guidelines
Pneumatic Compression Sleeves As Directed
Type: Thigh high
Straight Cath As Directed
Frequency: Per Retention Algorithm
Additional Instructions: straight cath as needed per acute urinary retention algorithm for 24 hrs
Additional Instructions: for bladder scan greater than 400 mL
Vital Signs As Directed
Frequency: Per unit guidelines
Ot Eval And Treat Routine
Pt Eval And Treat Routine
Activity Level: As Tolerated
DX Deep Vein Thrombosis Video Routine
07/12/25 20:00
Acetaminophen [Tylenol] 650 mg PO Q4HWA
Docusate Sodium [Colace] 100 mg PO BID
Pantoprazole [Protonix] 40 mg PO BID
Sennosides [Senokot] 17.2 mg PO BID
07/12/25 22:00
Atorvastatin [Lipitor] 10 mg PO HS
Docusate Sodium [Colace] 100 mg PO HS
Zolpidem Tartrate [Ambien] 10 mg PO HS
07/13/25 06:00
Levothyroxine [Synthroid] 100 mcg PO DAILY @ 0600
07/13/25 08:00
Bupropion(24Hr)Extended Releas [WELLBUTRIN XL (24 hour extended release)] 300 mg PO DAILY
Lactobac/Bifidobac [Visbiome] 1 cap PO DAILY
desvenlafaxine succinate See Dose Instructions PO DAILY
Abnormal Lab Results
07/12/25
13:25
RBC 3.30 L 10^6/uL
(4.20-5.40)
Hgb 9.1 L g/dL
(12.0-16.0)
Hct 28.7 L %
(37.0-47.0)
MCHC 31.7 L g/dL
(33.0-37.0)
Abs Immat Gran (auto) 0.1 H 10^3/uL
(0-0.05)
Absolute Neuts (auto) 8.2 H 10^3/uL
(1.4-6.5)
Absolute Lymphs (auto) 0.9 L 10^3/uL
(1.2-3.4)
Absolute Monos (auto) 0.9 H 10^3/uL
(0.1-0.6)
Immature Gran % 0.7 H %
(0-0.5)
Neutrophils % 80.1 H %
(42.2-75.2)
Lymphocytes % 9.1 L %
(20.5-51.1)
Glucose 115 H mg/dl
(70-99)
07/12/25 13:25
07/12/25 13:25
Vital Signs
Initial and Last Documented VS:
Initial Vital Signs
Temp Pulse Resp BP Pulse Ox
98.1 F 78 14 157/88 93
07/12/25 12:28 07/12/25 12:28 07/12/25 12:28 07/12/25 12:28 07/12/25 12:28
Last Documented Vital Signs
Temp Pulse Resp BP Pulse Ox
98.9 F 75 18 159/91 98
07/12/25 17:15 07/12/25 17:15 07/12/25 17:15 07/12/25 17:15 07/12/25 17:15
*Radiology
Radiology exam reviewed: preliminary read by ED provider (Comminuted fracture proximal humerus) and radiology read reviewed (Comminuted fracture left proximal humerus)
*Pulse Oximetry
SaO2: 97
Oxygen Mode of Delivery: Room air
Patient hypoxic: no
*Critical Care Note
Total Time (30-74mins, 75-104mins- exclusive of procedures): Not Applicable
Update Note
Update Note:
No other issues related to the fracture. Very concerned about ADL if she is living alone. Initially she wanted to try to go home but is now realizing with pain management cannot. She will be admitted for further care
ED Attending Note
-
Portions of this chart may have been created with voice recognition software.� Occasional wrong word or��sound alike� substitutions may have occurred due to the inherent limitations of voice recognition software.
Discharge Plan
Departure
Patient Disposition: Admit
Date of Disposition: 07/12/25
Time of Disposition: 15:08
Presentation/result/management discussed w/ accepting MD/DO: Orthopedics
Discharge Problem:
Comminuted proximal left humerus fractur, Intractable pain, Issues with ADL
Interventions
Interventions:
*Risk Screen - Suicide Last Done: 07/12/25 12:28
*General Assessment Last Done: 07/12/25 12:28
*Neglect/Abuse Screening Last Done: 07/12/25 12:28
*ED- Fall Risk Assessment Last Done: 07/12/25 12:28
*ED COVID-19 Vaccine History Last Done: 07/12/25 12:28
*Nursing Disposition Last Done: 07/12/25 16:52
ED-Musculoskeletal Assessment Last Done: 07/12/25 13:30
ED- Neurological Assessment Last Done: 07/12/25 13:30
ED-Skin Assessment Last Done: 07/12/25 13:30
Discharge Date and Time
Discharge Date/Time: 07/12/25 16:59
--- NOTE | 2025-07-12 15:25 | HPS.HSE ---
Family Physician
-
Family Physician: Axel Matute
Chief Complaint
-
fall and right shoulder pain
History of Present Illness
75-year-old with past medical history for GERD, hypercholesterolemia, parathyroid tumor, tachycardia presented after a fall at home. she walked without her walker and somehow she fell on the floor. denied WASHBURN, dizzy or syncope. since the fall she is
having right shoulder pain. denied chest pain, sob. denied fever, chills, cough, congestion. Denied abdominal pain, nausea, vomiting or diarrhea. Patient denied dysuria hematuria.
she underwent Total thyroidectomy, limited neck dissection, and left
superior parathyroidectomy last Tuesday.
Medical History
Past Medical History
Past Medical History: Reports Other
Additional Past Medical History:
GERD, depression, cerebral aneurysm, pharyngeal dysphagia, Cari-Ambrocio infection, insomnia, hyperlipidemia, seizures, anxiety, alcoholism, hyperparathyroidism, hypertension, tremor HPI, IBS
Past Surgical History: Reports Other
Additional Past Surgical History:
Parathyroidectomy, cardiac ablation, right ankle broken repaired, left ear tube removal
Social History
Tobacco: Non-smoker
Alcohol: Former
Drug: None
Family History
Family History: Not pertinent
Allergies / Home Medications
Allergies reflects when Allergies were last updated in [facility].
Home Medications with original date entered in [facility]
Allergy/Medication List:
Allergies
Allergy/AdvReac Type Severity Reaction Status Date / Time
No Known Allergies Allergy Verified 07/12/25 12:32
Home Medications
omeprazole 20 mg tablet,delayed release 20 mg PO BID Gastrointestinal issue 10/15/16
simvastatin 20 mg tablet 20 mg PO HS High cholesterol 10/15/16
Bifidobacterium infantis 10.5 mg (10 million cell) chewable tablet (Align (B.infantis)) 10.5 mg PO DAILY 07/05/25
bupropion HCl 300 mg 24 hr tablet, extended release 300 mg PO DAILY 07/05/25
cholecalciferol (vitamin D3) 50 mcg (2,000 unit) capsule (Vitamin D3) 50 mcg PO DAILY 07/05/25
denosumab 60 mg/mL subcutaneous syringe (Prolia) 60 mg SC [id number] 07/05/25
dextroamphetamine-amphetamine 30 mg tablet (Adderall) 30 mg PO BID 07/05/25
docusate sodium 100 mg capsule (Colace) 100 mg PO HS 07/05/25
zolpidem 10 mg tablet (Ambien) 10 mg PO HS 07/05/25
desvenlafaxine succinate 100 mg tablet,extended release 24 hr 100 mg PO DAILY 07/09/25
levothyroxine 100 mcg tablet (Synthroid) 100 mcg PO DAILY #30 tabs 07/10/25
Review of Systems
-
Constitutional: Reports No Symptoms
EENT: Reports No Symptoms
Respiratory: Reports No Symptoms
Cardiac: Reports No Symptoms
Abdomen/GI: Reports No Symptoms
: Reports No Symptoms
Musculoskeletal: Reports Other (right shoulder pain)
Skin: Reports No Symptoms
Neurological: Reports No Symptoms
Endocrine: Reports No Symptoms
Hematologic/Lymphatic: Reports No Symptoms
Psych: Reports No Symptoms
Physical Exam
Vital Signs
Vital Signs
Temp Pulse Resp BP Pulse Ox
98.1 F 78 16 137/88 97
07/12/25 12:28 07/12/25 14:14 07/12/25 14:14 07/12/25 14:14 07/12/25 15:07
Physical Exam
General: Well Developed, Well Nourished and No Apparent Distress
HEENT: NormoCephalic, Moist mucous membranes and Atraumatic
Respiratory: Clear
Cardiac: S1/S2 and Regular Rhythm; No Murmur or Rub
GI: Soft, Non Tender, Non Distended and Normal Bowel Sounds; No Organomegaly
Rectal: Deferred by Provider
Musculoskeletal: No Clubbing, No Cyanosis and No Edema
Skin: No Rash
Neuro: AO x 3 and Nonfocal/grossly intact
Psych: Calm
Laboratory Results
-
07/12/25 13:25
07/12/25 13:25
Data Reviewed
-
Diagnostic Radiology: Report Reviewed by me
Lab Data: Labs Reviewed by me
Impression/Plan
-
# Proximal humerus fracture secondary to fall
- Oxy, Dilaudid continue
- Orthopedics consulted
- Bedrest until evaluated by orthopedic
- X-ray of humerus with impression of Comminuted fracture of the left humeral head.
-PT/OT consulted
# Anemia of chronic disease
- Hemoglobin stable at 9.1, no active bleeding
- Continue to monitor
# Parathyroid tumor, s/p partial resection
-recent Total thyroidectomy, limited neck dissection, and left superior parathyroidectomy.
- Levothyroxine continued
# insomnia on nightly Zolpidem
# Right knee fracture 09/2021,
# Subdural hematoma 2020,
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
# HLD
# Hx of ablation for atrial dysrhythmia, without recurrence
-EKG NSR no ischemia
# Anxiety
- Bupropion, Adderall continued
# Insomnia
- Ambien continued
# GERD
- Omeprazole continued
#DVT proph
-scd
DNR
--- NOTE | 2025-07-12 16:02 | W.PN.UPDATE ---
Update Note
Progress Note Update
This note serves as an addendum to the H&P by hydrator Phillip FERNANDES
�
HPI
75F HX GERD, hypercholesterolemia, parathyroid tumor, tachycardia presented after a fall at home
- walked without the walker and somehow she fell on the floor.
- denied WASHBURN, dizzy or syncope.
- since the fall she is having Lt shoulder pain.
S/P Total thyroidectomy, limited neck dissection, and left superior parathyroidectomy last Tuesday.
ROS
denied chest pain, sob. denied fever, chills, cough, congestion.
denied abdominal pain, nausea, vomiting or diarrhea.
denied dysuria hematuria.
Relevant VS�
Vital Signs
Temp Pulse Resp BP Pulse Ox
98.1 F 78 16 137/88 97
07/12/25 12:28 07/12/25 14:14 07/12/25 14:14 07/12/25 14:14 07/12/25 15:07
PE
Gen: NAD
HEENT: atraumatic
Neck: supple
Lungs: CTA
Cor: RRR S1 S2
Abdomen:�soft NT NG
PROSECUTING ATTORNEY: NFND
MS:
Psych:
Relevant data�
07/12/25
13:25
RBC 3.30 L
Hgb 9.1 L
Hct 28.7 L
MCHC 31.7 L
Abs Immat Gran (auto) 0.1 H
Absolute Neuts (auto) 8.2 H
Absolute Lymphs (auto) 0.9 L
Absolute Monos (auto) 0.9 H
Immature Gran % 0.7 H
Neutrophils % 80.1 H
Lymphocytes % 9.1 L
Glucose 115 H
XR humerus : Comminuted fracture of the left humeral head.
ASSESSMENT & PLAN
Proximal comminuted Lt humerus fracture secondary to mechanical fall
- Fx set protocol
- PRN pain control
- Orthopedics consulted
- PT/OT consulted
Anemia of chronic disease
- Hemoglobin stable at 9.1, no active bleeding
- Continue to monitor
Parathyroid tumor, s/p partial resection
- recent Total thyroidectomy ( 07/09/[address] Levon Desai) limited neck dissection, and left superior parathyroidectomy.
- Levothyroxine continued
HLD
HX ablation for atrial dysrhythmia, without recurrence --EKG NSR no ischemia
Anxiety
- Bupropion, Adderall continued
Insomnia
- Ambien continued
Right knee fracture 09/2021,
Subdural hematoma 2020,
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
GERD
DVT Px: SCD
DNR
OBS MS
[2025-07-12 16:51] VITALS: BP 156/95
[2025-07-12 17:15] VITALS: BP 159/91
[2025-07-12] MEDS: DILAUDID 0.5 MG IV ×2 (17:24→21:18)
[2025-07-12] MEDS: ADDERALL PO (17:24)
[2025-07-12 17:40] VITALS: BMI 34.8
--- NOTE | 2025-07-12 18:14 | PTCARENOTE ---
Patient admitted from home with a left humerus fracture.Patient stated that she was ambulating without her walker and fell.She rates her pain at a 10 out of 10.She is unable to use the sling.Surgery was consulted.Dilaudid was given for pain and the
patient is resting comfortably in her bed with the call celis in place.
[2025-07-12] MEDS: ROXICODONE 5 MG PO (19:20)
[2025-07-12] MEDS: SENOKOT 17.2 MG PO (19:20)
[2025-07-12] MEDS: TYLENOL 650 MG PO (19:20)
[2025-07-12] MEDS: PROTONIX 40 MG PO (19:21)
--- NOTE | 2025-07-12 21:14 | PTCARENOTE ---
Patient c/o 09/06 pain, did get ordered oxy and Tylenol earlier. Not due for her Dilaudid IV yet. ANNE Minor made aware. Will give ordered Dilaudid now as per advise. bp- 126/82
[2025-07-12] MEDS: LIPITOR 10 MG PO (21:35)
[2025-07-12] MEDS: AMBIEN 10 MG PO (21:35)
--- NOTE | 2025-07-12 22:00 | PTCARENOTE ---
Patient refused to get turned/ pulled up in bed. c/o 10/10 left shoulder pain with any movement. Given Dilaudid IV as ordered.
[2025-07-12 23:19] VITALS: BP 117/85
[2025-07-12] MEDS: TUMS CHEWABLE TABLET 200 MG PO (23:33)
[2025-07-12] MEDS: TYLENOL PO (23:43)
[2025-07-13] MEDS: TYLENOL PO (04:30)
[2025-07-13] MEDS: SYNTHROID 100 MCG PO (04:44)
[2025-07-13] MEDS: DILAUDID 0.5 MG IV ×5 (04:44→22:28)
[2025-07-13 07:15] VITALS: BP 143/86
[2025-07-13] MEDS: VISBIOME 1 CAP PO (08:29)
[2025-07-13] MEDS: PROTONIX 40 MG PO ×2 (08:29→20:11)
[2025-07-13] MEDS: WELLBUTRIN XL (24 hour extended release) 300 MG PO (08:29)
[2025-07-13] MEDS: TYLENOL 650 MG PO ×4 (08:29→20:10)
[2025-07-13] MEDS: ADDERALL 30 MG PO ×2 (08:30→14:00)
[2025-07-13] MEDS: SENOKOT 17.2 MG PO (08:30)
--- NOTE | 2025-07-13 12:26 | CON.ORTHO ---
Consultation
-
Date/Time Consultation Requested: 07/12/25 @1705
Date/Time Consultation Performed: 07/13/25 @12:10pm
Requesting Provider: Pat Garvin
Performing Provider: Aylin Hernandez PA-C, Josue Allred MD
Reason for Consultation: left proximal humerus fracture
Consultation - Orthopedics
History
HPI: 75yo female admitted to [facility] for her left shoulder. She states that she recently had parathyroid surgery and yesterday she was ambulating in the lao and somehow fell. She denies prodromal symptoms. She did not trip on anything
that she can remember. She landed on her left side with her shoulder taking most of the impact. She reports she had immediate pain to the shoulder. She was unable to move her arm. She presented to the ER for evlauation where xrays revealed left
proximal humerus fracture. She states that she ambulates with walker/cane however she has been feeling more mobile recently and was walking without any assistive device at the time of her fall. She is right hand dominant. Currently, she is resting
in bed. She reports pain with any type of movement of her arm. She denies numbness/tingling. She has no pain elsewhere.
PAST MEDICAL HISTORY: GERD, depression, cerebral aneurysm, pharyngeal dysphagia, Cari-Ambrocio infection, insomnia, hyperlipidemia, seizures, anxiety, alcoholism, hyperparathyroidism, hypertension, tremor HPI, IBS
PAST SURGICAL HISTORY: parathyroidectomy, cardiac ablation, right ankle broken repaired, left ear tube removal
SOCIAL HISTORY: denies tobacco, alcohol
FAMILY HISTORY: non contributory
REVIEW OF SYSTEMS: 12 point review of systems obtained and negative except those mentioned in the HPI
Allergies / Home Medications
Allergy/AdvReac Type Severity Reaction Status Date / Time
No Known Allergies Allergy Verified 07/12/25 12:32
�Medication �Instructions �Recorded
omeprazole 20 mg tablet,delayed 20 mg PO BID Gastrointestinal issue 10/15/16
release
simvastatin 20 mg tablet 20 mg PO HS High cholesterol 10/15/16
Bifidobacterium infantis 10.5 mg 10.5 mg PO DAILY 07/05/25
(10 million cell) chewable tablet
(Align (B.infantis))
bupropion HCl 300 mg 24 hr tablet, 300 mg PO DAILY 07/05/25
extended release
cholecalciferol (vitamin D3) 50 50 mcg PO DAILY 07/05/25
mcg (2,000 unit) capsule (Vitamin
D3)
denosumab 60 mg/mL subcutaneous 60 mg SC [id number] 07/05/25
syringe (Prolia)
dextroamphetamine-amphetamine 30 30 mg PO BID 07/05/25
mg tablet (Adderall)
docusate sodium 100 mg capsule 100 mg PO HS 07/05/25
(Colace)
zolpidem 10 mg tablet (Ambien) 10 mg PO HS 07/05/25
desvenlafaxine succinate 100 mg 100 mg PO DAILY 07/09/25
tablet,extended release 24 hr
levothyroxine 100 mcg tablet 100 mcg PO DAILY #30 tabs 07/10/25
(Synthroid)
docusate sodium 100 mg capsule 100 mg PO HSPRN PRN constipation 07/12/25
(Colace)
Vital Signs / Lab Results
Temp Pulse Resp BP Pulse Ox
97.9 F 87 16 143/86 93
07/13/25 07:15 07/13/25 07:15 07/13/25 07:15 07/13/25 07:15 07/13/25 07:15
07/12/25 13:25
07/12/25 13:25
RADIOGRAPHIC FINDINGS:
Xrays left humerus and shoulder a comminuted, mildly displaced fracture through the left humeral head
PHYSICAL EXAM:
General: AAOx3, no acute distress
HEENT: NCAT, sclera anicteric, normal hearing
Heart: No JVD
Lungs: Normal work of breathing on room air
MSK: Directed exam of left shoulder performed. Skin intact. There is ecchymosis starting to appear to upper arm. +TTP generally about the shoulder. Nontender over elbow, wrist, and hand. ROM shoulder deferred. Full ROM of elbow, wrist, and hand.
Sensation intact to light touch. cap refil<2secs
Assessment / Plan
ASSESSMENT: Left mildly displaced proximal humerus fracture
PLAN: Unfortunately, Ms. Weber sustained a mildly displaced left proximal humerus fracture with her fall yesterday. This can be managed nonoperatively. She is to remain non weight bearing to the left arm. Recommend sling at all times, removing for
bathing and dressing. Ok to perform range of motion of her hand, wrist, and elbow as tolerated. Continue with pain medications as needed. May apply ice to the shoulder as well. Anticipate she will develop bruising and swelling to the left arm over
the next few days. PT/OT evaluation. Follow up outpatient in 1 week for repeat xrays to check alignment of fracture. Orthopedics will sign off. Please reach out with any questions or concerns.
--- NOTE | 2025-07-13 12:57 | W.PN.HOSP.TC ---
Today's Communication/Plan
-
await PT/OT evals
Assessment / Plan
Assessment / Plan
Assessment:
Mechanical Fall with comminuted, mildly displaced fracture through the left humeral head
- Ortho evaluated; nonoperative management as below
- NWB to LUE
- sling at all times (removing for bathing and dressing)
- pain control
- PT/OT
- OP f/u in 1 week for imaging
Anemia of chronic disease
- Hemoglobin stable at 9.1, no active bleeding
- Continue to monitor
Parathyroid tumor, s/p partial resection
- recent Total thyroidectomy, limited neck dissection, and left superior parathyroidectomy.
- Levothyroxine continued
insomnia on nightly Zolpidem
Right knee fracture 09/2021,
Subdural hematoma 2020,
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
HLD
Hx of ablation for atrial dysrhythmia, without recurrence
-EKG NSR no ischemia
Anxiety
- Bupropion, Adderall continued
Insomnia
- Ambien continued
GERD
- Omeprazole continued
DVT proph: SCDs
Code: DNR/DNI
Anticipated Discharge: Within 24 hours
Subjective/Interval History
-
Date of Service: July 13, 2025
resting comfortably, no complaints when arm immobile
Objective Data
-
Vital Signs:
Vital Signs
Temp Pulse Resp BP Pulse Ox
97.9 F 87 16 143/86 93
07/13/25 07:15 07/13/25 07:15 07/13/25 07:15 07/13/25 07:15 07/13/25 07:15
I&O
07/12/25 07/13/25 07/14/25
06:59 06:59 06:59
Intake Total 480 / 480
Balance 480 / 480
Physical Exam
-
General: No Apparent Distress
HEENT: Normocephalic and Atraumatic
Respiratory: Negative Wheezes
Cardiac: Regular Rhythm and S1/S2
GI: Soft and Nontender
Musculoskeletal: Other (LUE ecchymosis, tender to palpation)
Neuro: AO x 3
Psych: Calm
Data Reviewed
-
Total Time Spent with Patient (in minutes): 41
Labs: Labs Reviewed by me
[2025-07-13 15:15] VITALS: BP 111/79; PULSE 118; O2SAT 95
[2025-07-13 15:20] VITALS: BP 111/79
--- NOTE | 2025-07-13 16:07 | CM ---
Met with patient at bedside; [facility] letter explained; form signed @ 1540; Skilled Rehab recommended; Home with home health and private caregivers also discussed
Pharmacy verified: [facility] @ [address], [place], [place]
Patient is retired; lives alone at [facility] independent living apartment; 2nd floor apartment; full flight of stairs to her apartment; she reported that elevator has been out of service; building has a Wheelchair Ramp to the 2nd floor; her bathroom
has walk-in shower w/ grab bar
PLOF: patient is right hand dominant. She was independent with personal care, ambulated with cane or walker; drives; stated she is able to walk up a flight of stairs but get SOB by the time she reaches the top. Getting Occupational Therapy at home
Called Elaine; Main # to inquire about Medicare Shared Savings Program (MSSP) Waiver eligibility status for SNF; left a voice mail; recording stated that requests are accepted Tuesday - Tuesday only
Transport: [facility] offered to transport her home in the event that [facility] cannot provide transport
Discharge plan to be determined. Case Management will follow up with [facility] on Tuesday
[2025-07-13] MEDS: MUCINEX 1200 MG PO ×2 (16:43→20:10)
[2025-07-13] MEDS: AMBIEN 10 MG PO (20:10)
[2025-07-13] MEDS: LIPITOR 10 MG PO (20:10)
[2025-07-13] MEDS: SENOKOT PO (21:48)
[2025-07-13] MEDS: FLUSH (NSS) 1 FLUSH IV (22:28)
[2025-07-13 23:00] VITALS: BP 145/85
[2025-07-14] MEDS: TYLENOL PO ×2 (00:15→23:10)
[2025-07-14] MEDS: TYLENOL 650 MG PO ×6 (01:13→20:36)
[2025-07-14] MEDS: ROXICODONE 5 MG PO ×4 (01:13→20:40)
[2025-07-14] MEDS: DILAUDID 0.5 MG IV ×3 (04:55→17:18)
[2025-07-14] MEDS: SYNTHROID 100 MCG PO (04:55)
[2025-07-14 05:05] LABS: Hematocrit 28.9 % (37.0-47.0); Hemoglobin 9.3 g/dL (12.0-16.0); Mean Corp Hgb Conc. 32.2 g/dL (33.0-37.0); Mean Corpuscular Volume 87.0 fL (81.0-99.0); Platelet Count 351 10^3/uL (130-400); Red Cell Dist. Width 13.7 % (11.5-14.5)
[2025-07-14 05:32] LABS: Blood Urea Nitrogen 19 mg/dl (7-17); Calcium 8.8 mg/dl (8.4-10.2); Carbon Dioxide 23 mmol/L (22-30); Chloride 106 mmol/L (98-107); Estimated Creatinine Clearance 58 ml/min; Glucose 127 mg/dl (70-99); Potassium 4.4 mmol/L (3.5-5.1); Sodium 136 mmol/L (135-145); eGFR > 60.00
[2025-07-14 07:25] VITALS: BP 165/92
[2025-07-14] MEDS: SENOKOT 17.2 MG PO ×2 (08:11→20:36)
[2025-07-14] MEDS: PROTONIX 40 MG PO ×2 (08:11→20:36)
[2025-07-14] MEDS: WELLBUTRIN XL (24 hour extended release) 300 MG PO (08:11)
[2025-07-14] MEDS: MUCINEX 1200 MG PO ×2 (08:12→20:36)
[2025-07-14] MEDS: VISBIOME 1 CAP PO (08:12)
[2025-07-14] MEDS: ADDERALL 30 MG PO ×2 (08:14→14:19)
--- NOTE | 2025-07-14 09:11 | CM ---
Spoke w/ Bessie @ [facility] # [phone]; patient is eligible for Medicare Waiver Program;
Spoke with patient; made her aware that [facility] does not participate in waiver program; SNF options for facilities that participate were identified; patient's #1 preference is [facility]; #2 [facility]; Referrals sent via [facility]. Attending
notified.
Clinicals faxed to Bessie @ [facility] @ # [phone]
Plan: Discharge to SNF pending [facility] approval and bed availability
--- NOTE | 2025-07-14 10:38 | W.PN.HOSP.TC ---
Today's Communication/Plan
-
Medically stable for discharge to SNF pending bed. CM aware.
Assessment / Plan
Assessment / Plan
Assessment:
Mechanical Fall with comminuted, mildly displaced fracture through the left humeral head
- Ortho evaluated; nonoperative management as below
- NWB to LUE
- sling at all times (removing for bathing and dressing)
- pain control with oxycodone
- spasm treatment with tizanidine
- PT/OT - SNF recommended. Placement pending.
- OP f/u in 1 week for imaging
Anemia of chronic disease
- Hemoglobin stable >9.0
- Continue to monitor
Parathyroid tumor, s/p partial resection
- recent Total thyroidectomy, limited neck dissection, and left superior parathyroidectomy.
- Levothyroxine continued
insomnia on nightly Zolpidem
Right knee fracture 09/2021
Subdural hematoma 2020
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
HLD
Hx of ablation for atrial dysrhythmia, without recurrence
- EKG NSR no ischemia
Anxiety
- Bupropion, Adderall continued
Insomnia
- Ambien continued
GERD
- Omeprazole continued
DVT ppx: SCDs
Code: DNR/DNI
Anticipated Discharge: > 48 hours
Subjective/Interval History
-
Date of Service: July 14, 2025
reports some spasms in LUE
sling in place
Objective Data
-
Labs:
Laboratory Results
07/14/25
04:40
WBC 10.6
Hgb 9.3 L
Hct 28.9 L
Plt Count 351
Sodium 136
Potassium 4.4
Chloride 106
Carbon Dioxide 23
BUN 19 H
Creatinine 0.9
Glucose 127 H
Calcium 8.8
Vital Signs:
Vital Signs
Temp Pulse Resp BP Pulse Ox
98.1 F 86 18 165/92 96
07/14/25 07:25 07/14/25 07:25 07/14/25 07:25 07/14/25 07:25 07/14/25 07:25
I&O
07/13/25 07/14/25 07/15/25
06:59 06:59 06:59
Intake Total 480 / 480 480 / 480
Balance 480 / 480 480 / 480
Physical Exam
-
General: No Apparent Distress
HEENT: Normocephalic and Atraumatic
Respiratory: Negative Wheezes
Cardiac: Regular Rhythm and S1/S2
GI: Soft
Musculoskeletal: Other (L arm sling)
Neuro: AO x 3
Psych: Calm
Data Reviewed
-
Total Time Spent with Patient (in minutes): 41
Labs: Labs Reviewed by me
[2025-07-14] MEDS: ZANAFLEX 2 MG PO (11:07)
[2025-07-14 12:27] VITALS: PULSE 106; O2SAT 97
[2025-07-14 12:36] VITALS: PULSE 105; O2SAT 97
[2025-07-14 15:30] VITALS: BP 122/79
--- NOTE | 2025-07-14 17:35 | PTCARENOTE ---
pt non complainant with sling, was not on, pt using arm to push from bed, explained why she can not do this. Able to get sling on but would not let it be placed appropriately. OOB to chair and commode today. Became very agitated in afternoon. muscle
relaxer added to pain regime
[2025-07-14] MEDS: AMBIEN 10 MG PO (20:36)
[2025-07-14] MEDS: LIPITOR 10 MG PO (20:36)
[2025-07-14 23:07] VITALS: BP 149/92
[2025-07-15] MEDS: TYLENOL 650 MG PO ×4 (03:12→19:55)
[2025-07-15] MEDS: ROXICODONE 5 MG PO ×2 (03:17→08:48)
[2025-07-15] MEDS: SYNTHROID 100 MCG PO (05:05)
[2025-07-15] MEDS: DILAUDID 0.5 MG IV ×4 (05:06→20:00)
[2025-07-15 07:02] LABS: Hematocrit 29.1 % (37.0-47.0); Hemoglobin 9.3 g/dL (12.0-16.0); Mean Corp Hgb Conc. 32.0 g/dL (33.0-37.0); Mean Corpuscular Volume 85.1 fL (81.0-99.0); Platelet Count 343 10^3/uL (130-400); Red Cell Dist. Width 13.7 % (11.5-14.5)
[2025-07-15 07:24] LABS: Blood Urea Nitrogen 17 mg/dl (7-17); Calcium 8.4 mg/dl (8.4-10.2); Carbon Dioxide 23 mmol/L (22-30); Chloride 106 mmol/L (98-107); Estimated Creatinine Clearance 58 ml/min; Glucose 116 mg/dl (70-99); Potassium 4.1 mmol/L (3.5-5.1); Sodium 137 mmol/L (135-145); eGFR > 60.00
[2025-07-15 07:35] VITALS: BP 159/99
[2025-07-15] MEDS: ADDERALL 30 MG PO ×2 (08:47→15:51)
[2025-07-15] MEDS: PROTONIX 40 MG PO ×2 (08:48→19:55)
[2025-07-15] MEDS: MUCINEX 1200 MG PO ×2 (08:48→19:55)
[2025-07-15] MEDS: SENOKOT 17.2 MG PO ×2 (08:49→19:55)
[2025-07-15] MEDS: VISBIOME 1 CAP PO (08:49)
[2025-07-15] MEDS: WELLBUTRIN XL (24 hour extended release) 300 MG PO (08:49)
--- NOTE | 2025-07-15 08:51 | W.PN.HOSP.TC ---
Today's Communication/Plan
-
remains medcially stable for d/c to [facility] -CM informed
Assessment / Plan
Assessment / Plan
75yo F with anxiety, ADHD, hypothyroidism, HLD, GERD, insomnia, osteoporosis, afib, thyroidectomy and parathyroidectomy on 07/09/25 due to recurrent hyperparathyroidism and L superior pole papillary thyroid CA came after sustaining fall w/o LOC at
home, while she did not use her walker. Found Left mildly displaced proximal humerus fracture that can be managed non-operatively as per ortho
A/P:
#Left mildly displaced proximal humerus fracture
NWB to L arm, sling at all times
PT/OT: recommended [facility]
pain mgmt
Follow up outpatient in 1 week for repeat xrays to check alignment of fracture
#Anemia of chronic disease
outpatient follow up with PCP recommended
#Papillary thyroid CA
#Recurrent hyperparathyroidism
s/p resection
CA WNL
cont outpatient f/u with already established specialists
follow up with in 1-2 weeks after Sx
#Hx of subdural hematoma
#R carotid saccular aneurism
#HLD
#Hx of Afib s/p ablation
#Anxiety
#GERD
#ADHD
cont home meds
DVT ppx lovenox
DNR/DNI
I have spent at least 38min rewviewing chart, test results, communication with consultants and providing direct patient care
Anticipated Discharge: Within 24 hours
Subjective/Interval History
-
Date of Service: July 15, 2025
Objective Data
-
Labs:
Laboratory Results
07/15/25
06:00
WBC 9.3
Hgb 9.3 L
Hct 29.1 L
Plt Count 343
Sodium 137
Potassium 4.1
Chloride 106
Carbon Dioxide 23
BUN 17
Creatinine 0.9
Glucose 116 H
Calcium 8.4
Vital Signs:
Vital Signs
Temp Pulse Resp BP Pulse Ox
98.5 F 95 16 159/99 97
07/15/25 07:35 07/15/25 07:35 07/15/25 07:35 07/15/25 07:35 07/15/25 07:35
I&O
07/14/25 07/15/25 07/16/25
06:59 06:59 06:59
Intake Total 480 / 480 1520 / 1520
Balance 480 / 480 1520 / 1520
Review of Systems
-
History Source: Patient
All other systems: Reviewed and negative
Psych: Reports Anxious
Physical Exam
-
General: No Apparent Distress
HEENT: Normocephalic
Respiratory: Clear to Auscultation
GI: Soft, Nontender and Nondistended
Musculoskeletal: No Clubbing, No Cyanosis and No Edema
Neuro: Awake, Alert, Oriented and AO x 3
Psych: Confused and Anxious
--- NOTE | 2025-07-15 09:02 | CM ---
Addendum entered by Magalys Jimenez RN 07/16/25 10:52:
RN informed by [facility] RN patient will be going to '[facility]' and report needed to be called to her @[phone].
Addendum entered by Magalys Jimenez RN 07/15/25 16:19:
Patient agreeable to [facility] tomorrow. Covid screen required. Attending and RN updated
Plan: [facility] tomorrow.
Call report to: [phone]
Fax report to: [phone]
Medical and necessity forms on chart.
Addendum entered by Magalys Jimenez RN 07/15/25 13:53:
[facility] unable to accept. [facility] has accepted patient through waiver program. Patient not agreeable. Patient stated 'I will only go to [facility] where I know people'. Explained that [facility] does not participate in the program. Attending
updated.
Contact at [facility] for this is his Basilio # [phone]
Original Note:
Reviewed the chart notes and left voice message for Erma director of marketing operations at [facility]. Awaiting call back regarding bed availability. CM continues to be available to patient/family and is monitoring medical plan for needs at discharge.
Plan: Discharge to SNF once bed secured with a participating [facility] facility. Will need to call [facility] once bed found ([phone]).
[2025-07-15] MEDS: ZANAFLEX 2 MG PO ×2 (11:42→20:15)
[2025-07-15 15:42] VITALS: BP 121/84
[2025-07-15] MEDS: TYLENOL PO (15:57)
--- NOTE | 2025-07-15 16:26 | W.DCSUMMARY ---
Discharge Summary
Discharge Data
Date of Admission: 07/12/25
Date of Discharge: 07/16/25
-
Pending Results: No
Hospital Course
75yo F with anxiety, ADHD, hypothyroidism, HLD, GERD, insomnia, osteoporosis, afib, thyroidectomy and parathyroidectomy on 07/09/25 due to recurrent hyperparathyroidism and L superior pole papillary thyroid CA came after sustaining fall w/o LOC at
home, while she did not use her walker. Found Left mildly displaced proximal humerus fracture that can be managed non-operatively as per ortho. Medically stable for d/c to [facility].
I have spent at least 38min reviewing chart, test results, communication with consultants and providing direct patient care
Patient was managed for:
#Left mildly displaced proximal humerus fracture
#Anemia of chronic disease
#Papillary thyroid CA
#Recurrent hyperparathyroidism
#Hx of subdural hematoma
#R carotid saccular aneurism
#HLD
#Hx of Afib s/p ablation
#Anxiety
#GERD
#ADHD
Discharge Plan
-
Patient Disposition: Correction/SNF
Discharge Diagnosis/Procedures: L humerus Fx
Diet: Low Cholesterol
Activity: Other activity
Additional Activity: no weight bearing on L arm
Referrals:
Josue Allred MD [Active, Orthopedics] - in two weeks
Referral Note: repeated XR
Axel Matute MD [Family Provider, Internal Medicine]
Lloyd Dos Santos MD [Active, Surgical] - in one week
Prescriptions:
New
calcitriol 0.25 mcg Capsule
0.25 mcg PO BID Qty: 60 0RF
oxycodone 5 mg Tablet
5 mg PO Q4HPRN PRN (Reason: mild pain) Qty: 9 0RF
Continued
simvastatin 20 MG tablet
20 mg PO HS
omeprazole 20 MG tablet,delayed release (DR/EC)
20 mg PO BID
dextroamphetamine-amphetamine [Adderall] 30 mg Tablet
30 mg PO BID
docusate sodium [Colace] 100 mg Capsule
100 mg PO HS
zolpidem [Ambien] 10 mg Tablet
10 mg PO HS
bupropion HCl 300 mg Tablet Extended Release 24 Hr
300 mg PO DAILY
cholecalciferol (vitamin D3) [Vitamin D3] 50 mcg (2,000 unit) Capsule
50 mcg PO DAILY
Prolia 60 mg/mL Syringe
60 mg SC [id number]
Align (B.infantis) 10.5 mg (10 million cell) Tablet,Chewable
10.5 mg PO DAILY
desvenlafaxine succinate 100 mg Tablet Extended Release 24 Hr
100 mg PO DAILY
levothyroxine [Synthroid] 100 mcg tablet
100 mcg PO DAILY Qty: 30 0RF
docusate sodium [Colace] 100 mg Capsule
100 mg PO HSPRN PRN (Reason: constipation)
Discharge Orders:
Discharge Patient (As Directed); Ordered 07/15/25
Ordered By: Tha Weber
Discharge Date and Time
Print Language: [id number]
[2025-07-15] MEDS: LOVENOX 40 MG SC (18:16)
[2025-07-15] MEDS: LIPITOR 10 MG PO (21:58)
[2025-07-15] MEDS: AMBIEN PO ×2 (21:59→22:45)
[2025-07-15 23:15] VITALS: BP 122/84
--- NOTE | 2025-07-16 00:32 | W.PN.UPDATE ---
Update Note
Progress Note Update
reordering Covid 19 as the previous order has timed out and RN unable to collect.
[2025-07-16] MEDS: TYLENOL 650 MG PO ×3 (03:14→08:20)
[2025-07-16 03:32] LABS: COVID-19 Antigen Negative (Negative)
[2025-07-16] MEDS: SYNTHROID 100 MCG PO (05:08)
[2025-07-16] MEDS: ROXICODONE 5 MG PO (05:45)
[2025-07-16 07:30] VITALS: BP 139/86
--- NOTE | 2025-07-16 07:44 | W.PN.HOSP.TC ---
Today's Communication/Plan
-
dc
Assessment / Plan
Assessment / Plan
75yo F with anxiety, ADHD, hypothyroidism, HLD, GERD, insomnia, osteoporosis, afib, thyroidectomy and parathyroidectomy on 07/09/25 due to recurrent hyperparathyroidism and L superior pole papillary thyroid CA came after sustaining fall w/o LOC at
home, while she did not use her walker. Found Left mildly displaced proximal humerus fracture that can be managed non-operatively as per ortho. Medically stable to be d/c to rehab. Pain level significant as per patient, reasonable to continue
Oxycodone upon d/c and ambulation encouraged.
A/P:
#Left mildly displaced proximal humerus fracture
NWB to L arm, sling at all times
PT/OT: recommended STR
pain mgmt
Follow up outpatient in 1 week for repeat xrays to check alignment of fracture
#Anemia of chronic disease
outpatient follow up with PCP recommended
#Papillary thyroid CA
#Recurrent hyperparathyroidism
s/p resection
CA WNL
cont outpatient f/u with already established specialists
follow up with in 1-2 weeks after Sx
#Hx of subdural hematoma
#R carotid saccular aneurism
#HLD
#Hx of Afib s/p ablation
#Anxiety
#GERD
#ADHD
cont home meds
DVT ppx lovenox
DNR/DNI
I have spent at least 38min rewviewing chart, test results, communication with consultants and providing direct patient care
Anticipated Discharge: Today
Subjective/Interval History
-
Date of Service: July 16, 2025
Objective Data
-
Vital Signs:
Vital Signs
Temp Pulse Resp BP Pulse Ox
98.4 F 102 18 122/84 93
07/15/25 23:15 07/15/25 23:15 07/15/25 23:15 07/15/25 23:15 07/15/25 23:15
I&O
07/15/25 07/16/25 07/17/25
06:59 06:59 06:59
Intake Total 1520 / 1520 480 / 480
Balance 1520 / 1520 480 / 480
Review of Systems
-
History Source: Patient
All other systems: Reviewed and negative
Musculoskeletal: Reports Other (sharp L arm pain)
Physical Exam
-
General: No Apparent Distress
Neuro: Awake, Alert, Oriented and AO x 3
Psych: Anxious
[2025-07-16] MEDS: PROTONIX 40 MG PO (08:20)
[2025-07-16] MEDS: SENOKOT 17.2 MG PO (08:20)
[2025-07-16] MEDS: WELLBUTRIN XL (24 hour extended release) 300 MG PO (08:20)
[2025-07-16] MEDS: VISBIOME 1 CAP PO (08:20)
[2025-07-16] MEDS: MUCINEX 1200 MG PO (08:20)
[2025-07-16] MEDS: ADDERALL 30 MG PO (08:20)
[2025-07-16] MEDS: ZANAFLEX 2 MG PO (08:42)
[2025-07-16] MEDS: ROXICODONE 10 MG PO ×2 (09:46→12:44)
[2025-07-16 11:53] VITALS: BP 124/77
[2025-07-16] MEDS: TYLENOL PO (12:43)
== END 2025-07-16 13:25 ==
LOC: 2 SOUTH 16:31
PROVIDERS: Internal Medicine; ADMITTING PHYSICIAN Internal Medicine; ATTENDING PHYSICIAN Internal Medicine; CONSULT PHYSICIAN Specialist; EMERGENCY PHYSICIAN Emergency Medicine; FAMILY PHYSICIAN Internal Medicine Geriatric Medicine
DX: S42.292A Other displaced fracture of upper end of left humerus, initial encounter for closed fracture (principal); W18.30XA Fall on same level, unspecified, initial encounter; K21.9 Gastro-esophageal reflux disease without esophagitis; E78.00 Pure hypercholesterolemia, unspecified; C73 Malignant neoplasm of thyroid gland; D63.8 Anemia in other chronic diseases classified elsewhere; G47.00 Insomnia, unspecified; Z66 Do not resuscitate; F41.9 Anxiety disorder, unspecified; F90.9 Attention-deficit hyperactivity disorder, unspecified type; I48.91 Unspecified atrial fibrillation; E21.3 Hyperparathyroidism, unspecified
CPT/HCPCS: 73030; 73060; 80048; 85025; 85027; 87811; 96361; 96374; 96375; 96376; 97163; 97166; 97530; 97535; 99285; G0378

== ENCOUNTER 2025-07-18 20:58 | Inpatient (IN) | payer MEDICARE, OTHER, SELFPAY ==
[2025-07-18] VITALS (18 sets, daily range): BP systolic 112–168; BP diastolic 70–108; BMI 32.1; BMI 31.7
--- NOTE | 2025-07-18 14:01 | EDRN ---
Gisselle Paul PA in room w/ pt.
[2025-07-18] MEDS: DILAUDID 0.5 MG IV (14:26)
[2025-07-18 14:38] LABS: Hematocrit 30.3 % (37.0-47.0); Hemoglobin 10.1 g/dL (12.0-16.0); Mean Corp Hgb Conc. 33.3 g/dL (33.0-37.0); Mean Corpuscular Volume 85.1 fL (81.0-99.0); Nucleated Red Blood Cells % 0 %; Platelet Count 350 10^3/uL (130-400); Red Cell Dist. Width 14.2 % (11.5-14.5)
--- NOTE | 2025-07-18 14:39 | EDRN ---
PO 89-90% w/ pt placed on O2 at 2lpm via NC.
--- NOTE | 2025-07-18 14:59 | ED.GENMED ---
History of Present Illness
<Darci Paul PA-C - Last Filed: 07/19/25 07:39>
General
Chief Complaint: Extremity Pain (non-traumatic)
Source: patient
Time Seen by Provider: 07/18/25 13:53
History of Present Illness
History of Present Illness:
75-year-old female with past medical history of atrial fibrillation (currently not on anticoagulation), hyperlipidemia, hyperparathyroidism status post recent thyroidectomy, chronic alcohol abuse, previous subdural hematoma presenting to the
[facility] for persistent pain to the left upper extremity after she was recently diagnosed with a comminuted displaced proximal humerus fracture on the left. Patient has been getting 2 mg Dilaudid p.o.
every 4 hours for pain but still reporting significant pain and per EMS report has not been participating in her rehab secondary to the pain. No new injuries, no focal weakness or numbness. No other concerns presently.
Past History
<Darci Paul PA-C - Last Filed: 07/19/25 07:39>
Past History
ED Past Medical History: Arrthythmia, GERD, Hypercholesterolemia, Psychiatric, Other (parathyroid tumor) and Other (tachycardia)
ED Past Surgical History: Cardiac (ablation), Orthopedic and Other (parathyroid resection)
Social History
Tobacco: Non-smoker
Alcohol: None (pt states that she drinks 1-2 beers/day, but has not had an etoh drink since 01/14)
Drug: None
Personal: Single
Living: alone
Employment: Employed
Family History
Family History: Hypertension
Review of Systems
<Darci Paul PA-C - Last Filed: 07/19/25 07:39>
Review of Systems
All Other Systems: ROS reviewed and negative except as documented in HPI and ROS
Phy Exam
<Darci Paul PA-C - Last Filed: 07/19/25 07:39>
Physical Exam
Physical Exam:
GENERAL: Alert , in no apparent distress but does appear uncomfortable
EYE: conjunctiva clear
Head: Normocephalic atraumatic
NECK: Supple,
ENT: mmm.
LUNGS: no acute respiratory distress
NEUROLOGICAL: Alert and oriented
SKIN: Warm and dry, skin intact.
MUSCULOSKELETAL: Left upper extremity: Dressing overlying the proximal humerus but no sling in place. Ecchymosis along the proximal and medial portion of the left humerus. Patient has an easily palpable radial pulse. Cap refill less than 2
seconds and sensation is grossly intact to light touch. No skin color changes. Patient allows for range of motion of the digits and wrist without any pain.
PSYCH: Normal and appropriate interaction.
Scores
<Darci Paul PA-C - Last Filed: 07/19/25 07:39>
Heart Failure Risk
Heart Failure Risk Score: Not Applicable
Heart Score for Chest Pain Patients
STEMI patient?: Not applicable
Withdrawal Assessment of Alcohol
Withdrawal Assessment Completed?: Not applicable
Course
<Darci aPul PA-C - Last Filed: 07/19/25 07:39>
Orders/Labs/Results
Orders:
Orders
07/18/25 14:00
HYDROmorphone [Dilaudid] 0.5 mg IV NOW STA
07/18/25 14:26
Basic Metabolic Panel Urgent
Complete Blood Count/With Diff Urgent
07/18/25 14:55
Case Management Consult ONCE
Case Management Consult: Discharge Planning
07/18/25 Dinner
Regular
At Your Request: Limited Participation
Does patient need a safe tray?: No
07/18/25 15:34
FentaNYL 25 MCG/HR PATCH [Duragesic 25 Mcg/Hr Patch] 1 patch TRANSDERM NOW STA
07/18/25 15:45
REMOVE fentaNYL PATCH [Remove Duragesic Patch] See Dose Instructions REMOVE Q72H
07/18/25 15:57
Ionized Calcium Urgent
Crfcw-Xqnr-Odsuvdk Urgent
Magnesium Urgent
Comment: ADD ON
Phosphorus Urgent
Comment: ADD ON
07/18/25 17:03
CT Head W/o Iv Contrast Urgent
Comment:
Reason For Exam: New onset seizure
IV Insert/Care/Rem.- Treatment PRN
Levetiracetam Injectable [Keppra] 2,000 mg IV NOW STA
Midazolam HCl [Versed] 1 mg IV NOW STA
07/18/25 17:04
Levetiracetam Injectable [Keppra] 2,000 mg .ROUTE .STK-MED ONE
Midazolam HCl [Versed] 2 mg .ROUTE .STK-MED ONE
07/18/25 17:11
Levetiracetam Injectable [Keppra] 1,000 mg IV NOW STA
Ceribell [Rapid Point of Care EEG (ED/ICU ONLY)] Q1H
Indications for use:: TBI
07/18/25 17:12
NEUROLOGY CONSULT Urgent
Consulting Provider: Daquan Remy
Was physician already notified: Yes
07/18/25 18:00
Calcium Gluconate 4,000 mg 0.9% Sodium Chloride 250 ml [Nss] 250 ml IV ONCE
07/18/25 19:35
PTH [Intact PTH Includes Calcium] Urgent
07/18/25 19:36
Add On- LAB Urgent
Tests Added?: mag, phos
07/18/25 19:58
Admit/Transfer Patient As Directed
Co-Sign Provider:
Level of Care: Inpatient admission
Assign to:: Telemetry
Physician / Group: Robel Cerda
Diagnosis: seizure, hypocalcemia, left humerus fracture
Reason for Telemetry: Arrhythmia
Date to Stop Telemetry: 07/21/25
Time to Stop Telemetry: 11:00
Reason for Hospitalization: seizure, hypocalcemia, left humerus fracture
Expected length of stay greater than two midnights?: Yes
ELOS- Estimated Length of Stay in days: 3
I certify the patient meets the requirements for IP care: Yes
PRN Pain Medication Management As Directed
May give lesser potent ordered pain med per pt: Yes
preference::
Protocol:: Medication orders for pain may be administered in a
manner that supports deferring to patient preference
when the pt is:
- Requesting an ordered lesser potent pain medication.
Least to most potent pain medications are defined
as: acetaminophen < NSAID < tramadol < opioids
(morphine, oxycodone, hydromorphone).
- Requesting a lesser dose of the same medication IF
ORDERED.
- Requesting a less intrusive route of administration
if both routes are prescribed by the provider (PO <
IV).
07/18/25 20:00
Code Status As Directed
Resuscitation Status: Do not resuscitate
Based on pt advanced directive or healthcare POA form: Yes
Physician note:: facility facesheet and previous admission
07/18/25 20:01
DNR Bracelet Application ONCE
07/18/25 22:45
Acetaminophen [Tylenol] 650 mg PO Q6HPRN PRN mild pain/fever > 100.4F/WASHBURN
Calcitriol [Rocaltrol] 0.25 mcg PO BID
Docusate Sodium [Colace] 100 mg PO HS
Docusate Sodium [Colace] 100 mg PO HSPRN PRN constipation
HYDROmorphone [Dilaudid] 2 mg PO Q4HPRN PRN severe pain
Lidocaine [Lidocaine 4% Patch] 1 patch TOPICAL BIDPRN PRN LUE pain
Apply Lidocaine patch(s) to:: LUE
07/18/25 22:45
NEPHROLOGY CONSULT Routine
Consulting Provider: Santi Tineo V.
Was physician already notified: Yes
Activity As Directed
Activity Level: As Tolerated
Vital Signs As Directed
Frequency: Per unit guidelines
Weight As Directed
Frequency: Once
Comment: on admission
DX Deep Vein Thrombosis Video Routine
07/18/25 23:00
Amphet Asp/Amphet/D-Amphet [Adderall] 30 mg PO BID
Pantoprazole [Protonix] 40 mg PO BID
07/18/25 23:15
Atorvastatin [Lipitor] 10 mg PO HS
07/19/25 06:00
Levothyroxine [Synthroid] 100 mcg PO DAILY@0600
07/19/25 06:46
Basic Metabolic Panel IN AM
Complete Blood Count/No Diff IN AM
07/19/25 08:00
Bupropion(24Hr)Extended Releas [WELLBUTRIN XL (24 hour extended release)] 300 mg PO DAILY
Cholecalciferol (Vitamin D3) [VITAMIN D3 (cholecalciferol)] 50 mcg PO DAILY
Lactobac/Bifidobac [Visbiome] 1 cap PO DAILY
desvenlafaxine succinate 100 mg PO DAILY
07/19/25 18:00
Enoxaparin Sodium [Lovenox] 40 mg SC QPM
07/21/25 11:00
DC Protocol for Telemetry ONCE
Abnormal Lab Results
07/18/25 07/18/25
14:26 15:57
WBC 15.3 H 10^3/uL
(4.8-10.8)
RBC 3.56 L 10^6/uL
(4.20-5.40)
Hgb 10.1 L g/dL
(12.0-16.0)
Hct 30.3 L %
(37.0-47.0)
Abs Immat Gran (auto) 0.2 H 10^3/uL
(0-0.05)
Absolute Neuts (auto) 12.4 H 10^3/uL
(1.4-6.5)
Absolute Lymphs (auto) 1.1 L 10^3/uL
(1.2-3.4)
Absolute Monos (auto) 1.4 H 10^3/uL
(0.1-0.6)
Immature Gran % 1.4 H %
(0-0.5)
Neutrophils % 81.3 H %
(42.2-75.2)
Lymphocytes % 7.4 L %
(20.5-51.1)
Sodium 131 L mmol/L
(135-145)
Carbon Dioxide 21 L mmol/L
(22-30)
BUN 18 H mg/dl
(7-17)
Glucose 130 H mg/dl
(70-99)
Calcium 6.7 L* mg/dl
(8.4-10.2)
Ionized Calcium 0.80 L mMOL/L
(1.15-1.33)
Phosphorus 5.4 H mg/dl
(2.5-4.5)
Magnesium 0.8 L* mg/dl
(1.6-2.3)
07/18/25 14:26
07/18/25 14:26
Vital Signs
Initial and Last Documented VS:
Initial Vital Signs
Temp Pulse Resp BP Pulse Ox
98.6 F 98 16 152/87 97
07/18/25 13:42 07/18/25 13:42 07/18/25 13:42 07/18/25 13:42 07/18/25 13:42
Last Documented Vital Signs
Temp Pulse Resp BP Pulse Ox
98.1 F 92 18 130/87 96
07/19/25 03:23 07/19/25 03:23 07/19/25 03:23 07/19/25 03:23 07/19/25 03:23
<Ho Ray MD - Last Filed: 07/18/25 17:59>
Orders/Labs/Results
Orders:
Orders
07/18/25 14:00
HYDROmorphone [Dilaudid] 0.5 mg IV NOW STA
07/18/25 14:26
Basic Metabolic Panel Urgent
Complete Blood Count/With Diff Urgent
07/18/25 14:55
Case Management Consult ONCE
Case Management Consult: Discharge Planning
07/18/25 Dinner
Regular
At Your Request: Limited Participation
Does patient need a safe tray?: No
07/18/25 15:34
FentaNYL 25 MCG/HR PATCH [Duragesic 25 Mcg/Hr Patch] 1 patch TRANSDERM NOW STA
07/18/25 15:45
REMOVE fentaNYL PATCH [Remove Duragesic Patch] See Dose Instructions REMOVE Q72H
07/18/25 15:57
Ionized Calcium Urgent
Lacyx-Ueqs-Seixwiw Urgent
Magnesium Urgent
Comment: ADD ON
Phosphorus Urgent
Comment: ADD ON
07/18/25 17:03
CT Head W/o Iv Contrast Urgent
Comment:
Reason For Exam: New onset seizure
IV Insert/Care/Rem.- Treatment PRN
Levetiracetam Injectable [Keppra] 2,000 mg IV NOW STA
Midazolam HCl [Versed] 1 mg IV NOW STA
07/18/25 17:04
Levetiracetam Injectable [Keppra] 2,000 mg .ROUTE .STK-MED ONE
Midazolam HCl [Versed] 2 mg .ROUTE .STK-MED ONE
07/18/25 17:11
Levetiracetam Injectable [Keppra] 1,000 mg IV NOW STA
Ceribell [Rapid Point of Care EEG (ED/ICU ONLY)] Q1H
Indications for use:: TBI
07/18/25 17:12
NEUROLOGY CONSULT Urgent
Consulting Provider: Daquan Remy
Was physician already notified: Yes
07/18/25 18:00
Calcium Gluconate 4,000 mg 0.9% Sodium Chloride 250 ml [Nss] 250 ml IV ONCE
07/18/25 19:35
PTH [Intact PTH Includes Calcium] Urgent
07/18/25 19:36
Add On- LAB Urgent
Tests Added?: mag, phos
07/18/25 19:58
Admit/Transfer Patient As Directed
Co-Sign Provider:
Level of Care: Inpatient admission
Assign to:: Telemetry
Physician / Group: Robel Cerda
Diagnosis: seizure, hypocalcemia, left humerus fracture
Reason for Telemetry: Arrhythmia
Date to Stop Telemetry: 07/21/25
Time to Stop Telemetry: 11:00
Reason for Hospitalization: seizure, hypocalcemia, left humerus fracture
Expected length of stay greater than two midnights?: Yes
ELOS- Estimated Length of Stay in days: 3
I certify the patient meets the requirements for IP care: Yes
PRN Pain Medication Management As Directed
May give lesser potent ordered pain med per pt: Yes
preference::
Protocol:: Medication orders for pain may be administered in a
manner that supports deferring to patient preference
when the pt is:
- Requesting an ordered lesser potent pain medication.
Least to most potent pain medications are defined
as: acetaminophen < NSAID < tramadol < opioids
(morphine, oxycodone, hydromorphone).
- Requesting a lesser dose of the same medication IF
ORDERED.
- Requesting a less intrusive route of administration
if both routes are prescribed by the provider (PO <
IV).
07/18/25 20:00
Code Status As Directed
Resuscitation Status: Do not resuscitate
Based on pt advanced directive or healthcare POA form: Yes
Physician note:: facility facesheet and previous admission
07/18/25 20:01
DNR Bracelet Application ONCE
07/18/25 22:45
Acetaminophen [Tylenol] 650 mg PO Q6HPRN PRN mild pain/fever > 100.4F/WASHBURN
Calcitriol [Rocaltrol] 0.25 mcg PO BID
Docusate Sodium [Colace] 100 mg PO HS
Docusate Sodium [Colace] 100 mg PO HSPRN PRN constipation
HYDROmorphone [Dilaudid] 2 mg PO Q4HPRN PRN severe pain
Lidocaine [Lidocaine 4% Patch] 1 patch TOPICAL BIDPRN PRN LUE pain
Apply Lidocaine patch(s) to:: LUE
07/18/25 22:45
NEPHROLOGY CONSULT Routine
Consulting Provider: Santi Tineo V.
Was physician already notified: Yes
Activity As Directed
Activity Level: As Tolerated
Vital Signs As Directed
Frequency: Per unit guidelines
Weight As Directed
Frequency: Once
Comment: on admission
DX Deep Vein Thrombosis Video Routine
07/18/25 23:00
Amphet Asp/Amphet/D-Amphet [Adderall] 30 mg PO BID
Pantoprazole [Protonix] 40 mg PO BID
07/18/25 23:15
Atorvastatin [Lipitor] 10 mg PO HS
07/19/25 06:00
Levothyroxine [Synthroid] 100 mcg PO DAILY@0600
07/19/25 06:46
Basic Metabolic Panel IN AM
Complete Blood Count/No Diff IN AM
07/19/25 08:00
Bupropion(24Hr)Extended Releas [WELLBUTRIN XL (24 hour extended release)] 300 mg PO DAILY
Cholecalciferol (Vitamin D3) [VITAMIN D3 (cholecalciferol)] 50 mcg PO DAILY
Lactobac/Bifidobac [Visbiome] 1 cap PO DAILY
desvenlafaxine succinate 100 mg PO DAILY
07/19/25 18:00
Enoxaparin Sodium [Lovenox] 40 mg SC QPM
07/21/25 11:00
DC Protocol for Telemetry ONCE
Abnormal Lab Results
07/18/25 07/18/25
14:26 15:57
WBC 15.3 H 10^3/uL
(4.8-10.8)
RBC 3.56 L 10^6/uL
(4.20-5.40)
Hgb 10.1 L g/dL
(12.0-16.0)
Hct 30.3 L %
(37.0-47.0)
Abs Immat Gran (auto) 0.2 H 10^3/uL
(0-0.05)
Absolute Neuts (auto) 12.4 H 10^3/uL
(1.4-6.5)
Absolute Lymphs (auto) 1.1 L 10^3/uL
(1.2-3.4)
Absolute Monos (auto) 1.4 H 10^3/uL
(0.1-0.6)
Immature Gran % 1.4 H %
(0-0.5)
Neutrophils % 81.3 H %
(42.2-75.2)
Lymphocytes % 7.4 L %
(20.5-51.1)
Sodium 131 L mmol/L
(135-145)
Carbon Dioxide 21 L mmol/L
(22-30)
BUN 18 H mg/dl
(7-17)
Glucose 130 H mg/dl
(70-99)
Calcium 6.7 L* mg/dl
(8.4-10.2)
Ionized Calcium 0.80 L mMOL/L
(1.15-1.33)
Phosphorus 5.4 H mg/dl
(2.5-4.5)
Magnesium 0.8 L* mg/dl
(1.6-2.3)
07/18/25 14:26
07/18/25 14:26
Vital Signs
Initial and Last Documented VS:
Initial Vital Signs
Temp Pulse Resp BP Pulse Ox
98.6 F 98 16 152/87 97
07/18/25 13:42 07/18/25 13:42 07/18/25 13:42 07/18/25 13:42 07/18/25 13:42
Last Documented Vital Signs
Temp Pulse Resp BP Pulse Ox
98.1 F 92 18 130/87 96
07/19/25 03:23 07/19/25 03:23 07/19/25 03:23 07/19/25 03:23 07/19/25 03:23
<Darci Paul PA-C - Last Filed: 07/19/25 07:39>
MDM/Problems Addressed
Differential Diagnosis Includes:
Compartment Syndrome
Pain secondary to known fracture
Hematoma
Less concern for infectious etiology
No signs of neurovascular injury
MDM/Problems Addressed:
75-year-old female presenting to the ER for evaluation of known left-sided humeral fracture with continued pain and reported inability to participate in her rehab at the short-term rehab/[facility] facility. Patient has been receiving 2 mg
p.o. hydromorphone every 4 hours but states this is still not helping. Will check labs given patient's reported recent surgery for thyroidectomy to ensure calcium is within normal limits however I am a little less suspicious that this is the cause
of her current pain given the local symptoms. Will treat with IV Dilaudid while awaiting labs and discuss with orthopedics
<Darci Paul PA-C - Last Filed: 07/19/25 07:39>
*Pulse Oximetry
SaO2: 92
Nasal Cannula flow liters per minute: 2
Oxygen Mode of Delivery: Room air
Patient hypoxic: no
*Critical Care Note
Total Time (30-74mins, 75-104mins- exclusive of procedures): Not Applicable
Data Reviewed
Review of Other/Old Records Reveals: Records and Discharge Summary
<Darci Paul PA-C - Last Filed: 07/19/25 07:39>
Comment
Comment:
Case discussed with orthopedics who states at this time there is no indication for any surgical intervention and that this will heal with supportive measures. Will reach back out to the [facility] facility and attempt to transfer patient back
for continued treatment and pain control
Patient Management
Discussion with other providers: PCP, Engineering Test Mechanic and [facility] staff
Escalation/DeEscalation of care consider admission/obs:
Patient's pain much improved with IV Dilaudid. I spoke to patient's nurse at [facility], Soraida, who confirms patient's history that she has not been able to tolerate the therapies secondary to her pain. Patient was noted to be requesting to try
and go to [facility] where she lives and is more familiar with the environment however due to her insurance this is currently not an option for her and I am unable to admit the patient here. [facility] is aware and is willing to take the patient
back. Will place a transdermal fentanyl patch for continuous pain control and can still be given the additional medication p.o. as needed for breakthrough pain. Will arrange for transport back to [facility]. Patient is agreeable with this plan.
Patient's calcium was noted to be low which is likely related to her recent thyroidectomy. She does report that it has been low since the procedure but they were waiting to start her on any potential oral calcium. Awaiting albumin level. I did
notify the nursing staff at [facility] about this in addition to house provider, Dr. Jimenez about her labs and treatment planning.
<Ho Ray MD - Last Filed: 07/18/25 17:59>
Update Note
Update Note:
Patient had a grand mal seizure as she was being picked up to leave. Lasted about 2 minutes. Self resolved. This was followed by postictal state with roving eye movements [id number]. She was given a milligram of midazolam. 2 g of Keppra.
Additional gram of Keppra after discussing with neurology. Discussed with nephrology. 4 g of calcium gluconate. CT head pending. Family updated.
ED Attending Note
<Darci Paul PA-C - Last Filed: 07/19/25 07:39>
-
Portions of this chart may have been created with voice recognition software.� Occasional wrong word or��sound alike� substitutions may have occurred due to the inherent limitations of voice recognition software.
<Ho Ray MD - Last Filed: 07/18/25 17:59>
ED Attending Note
Patient seen and examined by attending physician: Yes
I performed the substantive portion of visit, reviewed & personally made and approve the management plan that is documented in note by myself or RANDI.: Yes
ED Attending Note:
Patient currently is waking up some. She is talking. Head CT with no acute findings. Received Keppra, midazolam and IV calcium. Referred to hospitalist. Family updated
Discharge Plan
Departure
Patient Disposition: Admit
Date of Disposition: 07/18/25
Time of Disposition: 15:32
Presentation/result/management discussed w/ accepting MD/DO: Neurology/nephrology
Discharge Problem:
Closed left humeral fracture
Interventions
Interventions:
*Risk Screen - Suicide Last Done: 07/18/25 13:42
*General Assessment Last Done: 07/18/25 13:42
*Neglect/Abuse Screening Last Done: 07/18/25 13:42
*ED- Fall Risk Assessment Last Done: 07/18/25 13:42
*ED COVID-19 Vaccine History Last Done: 07/18/25 13:42
*Nursing Disposition Last Done: 07/18/25 22:49
ED-Skin Assessment Last Done: 07/18/25 14:25
ED-Peripheral Vascular Assessment Last Done: 07/18/25 14:25
ED-Musculoskeletal Assessment Last Done: 07/18/25 14:25
Discharge Date and Time
Discharge Date/Time: 07/18/25 22:49
[2025-07-18 15:47] LABS: Blood Urea Nitrogen 18 mg/dl (7-17); Calcium 6.7 mg/dl (8.4-10.2); Carbon Dioxide 21 mmol/L (22-30); Chloride 100 mmol/L (98-107); Estimated Creatinine Clearance 58 ml/min; Glucose 130 mg/dl (70-99); Sodium 131 mmol/L (135-145); eGFR > 60.00
--- NOTE | 2025-07-18 15:58 | EDRN ---
SST redrawn at this time by [facility] PCT.
[2025-07-18] MEDS: DURAGESIC 25 MCG/HR PATCH 1 PATCH TRANSDERM (16:02)
[2025-07-18 16:24] LABS: ALT (SGPT) 25 U/L (0-35); AST (SGOT) 36 U/L (14-36); Albumin 4.2 g/dl (3.5-5.0); Alkaline Phosphatase 69 U/L (38-126); Total Protein 7.2 g/dl (6.3-8.2)
--- NOTE | 2025-07-18 17:00 | EDRN ---
[facility] here to transport pt. 3 staff ready to pull pt over to ambulance litter and pt started w/ a seizure. Dr. Ray called to room and other nurses in room. Pt had rhythmic eye movement and mouth movement and was drooling. IV
started in R hand #22 P at 17:03 then a second #22P started at 17:05. NRBM at 100% placed on pt at 17:02. Fentanyl patch removed at 17:04. Ceribel placed on pt at 17:10. Pt to CT scan at 17:15 and returned to room at 17:30. Ceribel removed for CT at
17:17 then replaced on return to room at 17:30.
[2025-07-18] MEDS: VERSED 1 MG IV (17:06)
[2025-07-18] MEDS: KEPPRA 2000 MG IV (17:07)
[2025-07-18] MEDS: KEPPRA 1000 MG IV (17:10)
[2025-07-18] MEDS: CALCIUM GLUCONATE 290 MG IV (18:17)
--- NOTE | 2025-07-18 18:24 | EDRN ---
Pt is wide awake and attempting to remove the ceribel w/ her R hand. Dr. Ray said okay to apply wrist restraint until ceribel is completed its hour.
--- NOTE | 2025-07-18 18:28 | EDRN ---
R wrist restraint removed and ceribel has been completed.
--- NOTE | 2025-07-18 18:43 | HPS.HSE ---
Family Physician
-
Family Physician: Naveed Jimenez MD
Chief Complaint
-
ntractable left upper extremity pain
History of Present Illness
Patient is a 75-year-old female with past medical history significant for hypertension, hyperlipidemia, hyperparathyroidism, GERD, seizures and depression/anxiety who presented to [facility] ED for evaluation of intractable left upper extremity pain. HPI
obtained from chart review and patient. Patient arrived to ED via EMS from [facility] for intractable pain workup. Staff from facility had reported that PRN Dilaudid was not effective in pain management for patient and she was refusing
therapy because of increased severe pain. Ortho spoke with ED and no intervention needed, patient was discharged back to facility for rehab. While EMS about to transfer patient to stretcher patient began to seize in the presence of EMS and ED staff.
Seizure stopped spontaneously. Patient was given midazolam 1mg and Keppra 3000mg per neurology. At assessment patient is post ictal and limited in history.
Medical History
Past Medical History
Past Medical History: Reports Other
Additional Past Medical History:
hypertension
hyperlipidemia
hyperparathyroidism
GERD
seizures
depression/anxiety
Papillary thyroid CA
cerebral aneurysm
pharyngeal dysphagia
Cari-Ambrocio infection
insomnia
alcoholism
tremor
IBS
#Hx of Afib s/p ablation
Past Surgical History: Reports Other
Additional Past Surgical History:
thyroidectomy
Parathyroidectomy
cardiac ablation
right ankle broken repaired
left ear tube removal
Social History
Tobacco: Non-smoker
Alcohol: Former
Drug: None
Family History
Family History: Not pertinent
Allergies / Home Medications
Allergies reflects when Allergies were last updated in [facility].
Home Medications with original date entered in [facility]
Allergy/Medication List:
Allergies
Allergy/AdvReac Type Severity Reaction Status Date / Time
No Known Allergies Allergy Verified 07/18/25 13:42
Home Medications
omeprazole 20 mg tablet,delayed release 20 mg PO BID Gastrointestinal issue 10/15/16
simvastatin 20 mg tablet 20 mg PO HS High cholesterol 10/15/16
bupropion HCl 300 mg 24 hr tablet, extended release 300 mg PO DAILY 07/05/25
cholecalciferol (vitamin D3) 50 mcg (2,000 unit) capsule (Vitamin D3) 50 mcg PO DAILY 07/05/25
denosumab 60 mg/mL subcutaneous syringe (Prolia) 60 mg SC [id number] 07/05/25
dextroamphetamine-amphetamine 30 mg tablet (Adderall) 30 mg PO BID 07/05/25
docusate sodium 100 mg capsule (Colace) 100 mg PO HS 07/05/25
zolpidem 10 mg tablet (Ambien) 10 mg PO HS 07/05/25
desvenlafaxine succinate 100 mg tablet,extended release 24 hr 100 mg PO DAILY 07/09/25
levothyroxine 100 mcg tablet (Synthroid) 100 mcg PO DAILY #30 tabs 07/10/25
docusate sodium 100 mg capsule (Colace) 100 mg PO HSPRN PRN constipation 07/12/25
calcitriol 0.25 mcg capsule 0.25 mcg PO BID #60 caps 07/15/25
L. acidophilus 5 mg-digestive enzymes combo no.5 250 mg capsule (Probiotic-Digestive Enzymes) 1 cap PO DAILY 07/18/25
acetaminophen 325 mg tablet 650 mg PO Q6H PRN mild pain/fever > 100.4F/WASHBURN 07/18/25
fentanyl 50 mcg/hr transdermal patch 1 patch transdermal Q72H #3 ea 07/18/25
hydromorphone 2 mg tablet 2 mg Q4HPRN PRN severe pain 07/18/25
lidocaine 4 % topical patch 1 patch topical BID PRN LUE pain 07/18/25
Review of Systems
-
Unable to obtain full review of systems at this time due to: Other (post ictal )
History Source: Patient
Musculoskeletal: Reports Other (LUE severe pain )
Physical Exam
Vital Signs
Vital Signs
Temp Pulse Resp BP Pulse Ox
98.6 F 108 14 116/97 96
07/18/25 13:42 07/18/25 18:15 07/18/25 18:15 07/18/25 18:00 07/18/25 18:15
Physical Exam
General: Well Developed, Well Nourished, No Apparent Distress and Obese
HEENT: NormoCephalic, Moist mucous membranes and Atraumatic
Respiratory: Clear and Non Labored Respirations
Cardiac: S1/S2 and Regular Rhythm; No Murmur or Rub
GI: Soft, Non Tender, Non Distended and Normal Bowel Sounds; No Organomegaly
Rectal: Deferred by Provider
Genito-urinary: Deferred by me
Musculoskeletal: No Clubbing, No Cyanosis, No Edema and Other (pain to left humerus with palpation )
Skin: Warm, IV/Catheter Site and Other (LUE ecchymosis proximal and medial portion humerus )
Neuro: Awake and Nonfocal/grossly intact
Psych: Calm
Laboratory Results
-
07/18/25 14:26
07/18/25 14:26
Laboratory Results
Total Bilirubin 0.7 mg/dl (0.2-1.3) 07/18/25 15:57
AST 36 U/L (14-36) 07/18/25 15:57
ALT 25 U/L (0-35) 07/18/25 15:57
Alkaline Phosphatase 69 U/L (38-126) 07/18/25 15:57
Data Reviewed
-
CT Scan: Report Reviewed by me (Head: No convincing acute intracranial abnormality noted. Asymmetrically progressed periventricular white matter low-attenuation in the right frontal region, likely related to changes of chronic small vessel ischemic
disease. A small underlying mass would be difficult to exclude. Consider MRI for f)
Lab Data: Labs Reviewed by me (WBC 15.3, Neut 81.3, Na+ 131, Ca+ 6.7)
Impression/Plan
-
IMPRESSION/PLAN:
#seizure
Head CT: No convincing acute intracranial abnormality noted.
Asymmetrically progressed periventricular white matter low-attenuation in the right frontal region, likely related to changes of chronic small vessel ischemic disease. A small underlying mass would be difficult to exclude.
Consider MRI for further evaluation as clinically indicated.
- Admit to telemetry
- Consult Neurology
- loaded with Keppra 3mg
- continue Keppra 500mg BID
#hyperparathyroidism
#hypocalcemia
Ca+ 6.7
s/p partial parathyroidectomy
- Consult Nephrology
- Calcium gluconate given in ED
- trend calcium
- continue calcitriol
#papillary thyroid CA
s/p thyroidectomy
- continue levothyroxine
#hyperlipidemia
- continue simvastatin
#GERD
- continue omeprazole
#depression/anxiety
- continue bupropion, desvenlafaxine
#hypertension
Code status: DNR
DVT prophylaxis: Lovenox sq
--- NOTE | 2025-07-18 19:44 | W.PN.UPDATE ---
Update Note
Progress Note Update
This is an addendum to H&P written by Apple Branham on 07/18/2025. �Patient seen and examined independently with CONCILIATION COURT JUDGE.
75-year-old female past medical history of ADHD, recurrent hyperparathyroidism status post parathyroidectomy on 07/09, papillary thyroid cancer status post thyroid resection, hypothyroidism, hyperlipidemia, GERD, insomnia, osteoporosis, atrial
fibrillation status post ablation, subdural hematoma, right carotid saccular aneurysm, presenting with intractable left humerus pain after recent fracture on 07/12 that was managed nonoperatively. �She had grand mall seizure here.
Vital signs showed tachycardia 110s.
Labs showed leukocytosis. �Stable anemia of 10. �Calcium 6.7. �Ionized calcium 0.8.
Patient with grand mal seizure secondary to hypocalcemia secondary to recent parathyroid resection due to hyperparathyroidism. �
Patient given Keppra 3 g and midazolam. �Continue 500 twice daily. �Neurology consulted.
Check magnesium and phosphorus. �Check PTH and vitamin D level. �Replete calcium. �Nephrology consulted.
Dilaudid for left humerus fracture.
[2025-07-18 20:02] LABS: Calcium 9.0 mg/dl (8.4-10.2)
[2025-07-18 20:54] LABS: Magnesium 0.8 mg/dl (1.6-2.3)
[2025-07-18] MEDS: LIPITOR 10 MG PO (23:14)
[2025-07-18] MEDS: ADDERALL PO ×2 (23:14→23:21)
[2025-07-18] MEDS: COLACE 100 MG PO (23:14)
[2025-07-18] MEDS: PROTONIX 40 MG PO (23:14)
[2025-07-18] MEDS: ROCALTROL 0.25 MCG PO (23:14)
[2025-07-18] MEDS: DILAUDID 2 MG PO (23:14)
[2025-07-19] VITALS (8 sets, daily range): BP systolic 113–149; BP diastolic 66–92; PULSE 88; O2SAT 94; BMI 31.7
[2025-07-19 00:12] LABS: Magnesium 1.1 mg/dl (1.6-2.3)
[2025-07-19] MEDS: MAGNESIUM SULFATE 50 IV ×2 (01:05→13:06)
[2025-07-19] MEDS: SYNTHROID 100 MCG PO (05:41)
--- NOTE | 2025-07-19 06:26 | PTCARENOTE ---
Pt refusing to turn and position. Pt educated on wound prevention and to shift weight frequently.
--- NOTE | 2025-07-19 07:24 | PTCARENOTE ---
Looked this AM with Kimberly RN for fentanyl patch on pt. None were found. Pt has been refusing all turns and movement this shift including elevation of the LUE. No s/s of distress assessed. Report given.
--- NOTE | 2025-07-19 07:24 | W.RAPID.EEG ---
Rapid EEG
-
Procedure Date: 07/18/25
Results:
No evidence of Status Epilepticus
[2025-07-19 07:27] LABS: Hematocrit 28.3 % (37.0-47.0); Hemoglobin 9.3 g/dL (12.0-16.0); Mean Corp Hgb Conc. 32.9 g/dL (33.0-37.0); Mean Corpuscular Volume 84.0 fL (81.0-99.0); Platelet Count 341 10^3/uL (130-400); Red Cell Dist. Width 14.2 % (11.5-14.5)
[2025-07-19 07:51] LABS: Blood Urea Nitrogen 15 mg/dl (7-17); Calcium 7.5 mg/dl (8.4-10.2); Carbon Dioxide 20 mmol/L (22-30); Chloride 102 mmol/L (98-107); Estimated Creatinine Clearance 57 ml/min; Glucose 119 mg/dl (70-99); Potassium 3.9 mmol/L (3.5-5.1); Sodium 135 mmol/L (135-145); eGFR > 60.00
[2025-07-19] MEDS: PROTONIX 40 MG PO ×2 (08:53→20:40)
[2025-07-19] MEDS: FLUSH (NSS) 1 FLUSH IV ×4 (08:53→14:46)
[2025-07-19] MEDS: WELLBUTRIN XL (24 hour extended release) 300 MG PO (08:53)
[2025-07-19] MEDS: ROCALTROL 0.25 MCG PO ×2 (08:53→20:40)
[2025-07-19] MEDS: VITAMIN D3 (cholecalciferol) 50 MCG PO (08:53)
[2025-07-19] MEDS: ADDERALL 30 MG PO (08:53)
[2025-07-19] MEDS: VITAMIN B1 100 MG PO (08:53)
[2025-07-19] MEDS: VISBIOME 1 CAP PO (08:53)
[2025-07-19] MEDS: LIDOCAINE 4% PATCH 1 PATCH TOPICAL (09:05)
[2025-07-19] MEDS: DILAUDID 2 MG PO (09:05)
--- NOTE | 2025-07-19 09:35 | CON.NEURO4 ---
Addendum entered and electronically signed by Daquan Remy MD 07/19/25 13:52:
Studies reviewed.
I have personally examined the patient. I reviewed and agree with the CONTRACTING ENGINEER's Note.
My addenda:
Awake, alert, interactive. No acute distress.
Speech intact.
Follows 2-step requests w/o difficulty. No tremor.
Extra-ocular movements grossly intact.
Facial movements full and symmetric. Hearing intact to normal conversational volume.
Normal UE movements bilaterally.
Neck: full ROM.
Chest: no dyspnea
Heart: no JVD
Ext: (-) Clubbing, (-) Cyanosis, (-) Edema
IMPRESSIONS/RECOMMENDATIONS:
Abrupt onset of generalized tonic-clonic seizure witnessed by staff
Risk factors include prior exposure to hydromorphone, prior history of alcohol overexposure and prior subdural hematoma
Patient also has a history of right sided cavernous segment internal carotid artery aneurysm
Discontinue newly initiated levetiracetam due to the patient's prior history of mood disorder
Initiate lacosamide 100 mg twice a day
Check CT head and neck due to previously known aneurysm with possible further expansion requiring neurosurgical intervention
Okay continuance of other medications although would avoid hydromorphone
Okay use of fentanyl
D/W patient
All questions answered.
Will continue to follow as outpatient.
Original Note:
Consultation - Neurology 4
-
CONSULTING PHYSICIAN: Daquan Remy MD
REFERRING PHYSICIAN: ER/Dr. Ray
DICTATED BY: ANNE Martinez
DATE/TIME OF REQUEST: 07/18/25
DATE/TIME OF CONSULTATION: 07/19/25
Reason for Consultation: Seizure
History of Present Illness:
This is a 75-year-old right-handed female who has presented to the hospital on 07/18/25 with report of intractable left upper extremity pain s/p thyroidectomy. Patient was previously follwed by our Neurology service from [id number] for frequent
falls, tremor, subdural hematoma, R cavernous ICA aneurysm, and possible seizure history in the setting of binge drinking.
From previous outpatient encounter by Neurology Dr. Colón on 01/28/2022:
'Patient known to me for history of hospitalization after fall while intoxicated, MRI of the brain showed no stroke or hemorrhage, MRA of the head showed right sided cavernous segment aneurysm approximately 8.3 mm which was felt to be asymptomatic
and acceptable for observation, placed on aspirin due to some mild microangiopathy and possible lacunar stroke in MRI brain and some very mild vessel atherosclerosis.�������She says is not doing well today and has had a couple hospitalizations. She
went to [facility] after a drinking episode, says she feels like. She did go to [facility] for alcohol rehabilitation and detox. She says that she had a possible seizure at [facility], physician there said no observed convulsions there though.
She had been taking Ambien and Clonazepam before this. She was diagnosed with a subdural hematoma on brain scans. There were hallucinations at this time. She went to [facility] after this was felt to be possible seizure and she was placed on
Levetiracetam for brief period but she ran out of seizure medications. She says she has not been drinking any alcohol now. No longer taking aspirin because of the subdural hematoma.�������
She says no other episodes of a seizure in her life, nothing in childhood, no family members with history of seizures, no history of PANEL MONITOR infection, has had some head injuries associated with drinking an blackout spells.'
While patient was being brought to the hospital from rehab yesterday (07/18/25), she had a witness generalized seizure by EMS and staff that stopped spontaneously. She was given midazolam 1mg and levetiracetam 3000mg and then was post ictal. Patient
does not recall this event but can recall what led to her coming to the hospital. CT head was obtained on arrival and is negative for any acute abnormalities. Her biggest complaint is left arm, neck, and foot severe 10/10 pain. She currently does
not recall a history of seizures currently or being on levetiracetam in the past.
Past Medical History: Afib (not on OAC), HTN, HLD, seizures, R ICA aneurysm, binge drinking, multiple prior head injuries, SVT, hyperparathyroidism, papillary thyroid cancer, pharyngeal dysphagia, Cari-Ambrocio infection, insomnia, depression,
anxiety, tremor, IBS
Surgical History: Catheter ablation for SVT, parathyroidectomy, thyroidectomy, R ankle repair, left ear tube removal
Family History: Mother- dementia.
Social History: Former binge drinking
Allergies: No known allergies.
Home Medications: See below.
Review of Symptoms:
Patient denies any fever, headache, chest pain, shortness of breath, GI or symptoms.
�Per the HPI.�All systems are reviewed negative except above.
Physical Exam:
The patient is afebrile, abdomen is nondistended, breathing is unlabored, skin is cool and dry, anterior neck DSD.
Neurologic Examination:
The patient is awake, alert and oriented x 3. She is able to follow commands and answer questions appropriately. There is no aphasia or dysarthria. On cranial nerve assessment, pupils are 3 mm bilateral, round and reactive to light and
accommodation. Visual price are full. Extraocular movements are intact. Facial sensations are intact and bilaterally symmetrical, there is no facial asymmetry. Hearing is intact bilaterally to normal conversation volume. Tongue palate and uvula are
midline. Sternocleidomastoid strengths are reduced on the left, reports pain. Motor strengths are 5/5 right upper, 1/5 left upper, 5/5 right lower, and 2/5 left lower extremities on medical research Walsh scale. Endorses significant pain in the
left arm and left leg limiting movement. There is no drift on the right side or involuntary movement noted. Deep tendon reflexes are absent bilateral upper and lower extremities and Babinski is absent bilaterally. There was no extinction noted on
double simultaneous stimulation. Coordination is intact by finger to nose on the right, JOAQUINA left.
Lab Results: See below.
Neuro Imaging:
1. CT Head 07/18/25: No convincing acute intracranial abnormality noted. Asymmetrically progressed periventricular white matter low-attenuation in the right frontal region, likely related to changes of chronic small vessel ischemic disease. A small
underlying mass would be difficult to exclude. Consider MRI for further evaluation as clinically indicated.
Differentials for the patient's presentation include:
1. Seizure in the setting of mildly low sodium level and hydromorphone usage.
2. History of seizures in the setting of binge drinking.
3. R ICA 8mm aneurysm, previously recommended A-gram by Neurosurgery Dr. Miller at [place], appears patient never followed through with this.
Patient has the following risk factors for their symptoms: Low sodium level, hydromorphone usage, hx seizures, alcohol abuse
Recommendations:
-Would avoid levetiracetam due to history of mental health issues.
-Start lacosamide 100mg twice a day, will defer loading dose as patient was loaded with levetiracetam already.
-Would avoid hydromorphone as this can low the seizure threshold.
-Seizure precautions.
-Checking blood work for metabolic abnormalities.
-DVT prophylaxis.
-Needs outpatient follow-up with Neurosurgery regarding R ICA aneurysm.
Discussed patient care with: Dr. Remy, the patient
Vital Signs and Labs
-
Vital Signs and Labs:
Vital Signs
Temp Pulse Resp BP Pulse Ox
98.3 F 86 16 144/82 100
07/19/25 07:43 07/19/25 07:43 07/19/25 07:43 07/19/25 07:43 07/19/25 08:50
Lab Results
07/19/25 06:46
07/19/25 06:46
Sodium 135 mmol/L (135-145) 07/19/25 06:46
Potassium 3.9 mmol/L (3.5-5.1) 07/19/25 06:46
BUN 15 mg/dl (7-17) 07/19/25 06:46
Glucose 119 mg/dl (70-99) H 07/19/25 06:46
Calcium 7.5 mg/dl (8.4-10.2) L D 07/19/25 06:46
Phosphorus 5.4 mg/dl (2.5-4.5) H 07/18/25 15:57
Medications
-
Active Medications
Generic Name Dose Route Start Last Admin
Trade Name Freq PRN Reason Stop Dose Admin
Acetaminophen 650 mg 07/18/25 22:45
Acetaminophen 325 Mg Tablet PO 08/15/25 22:44
Q6HPRN PRN
mildpain, fever > 100.4F/HApai
Amphetamine/Dextroamphetamine 30 mg 07/18/25 23:00 07/19/25 08:53
Amphet Asp/Amphet/D-Amphet (Adderall) 15 Mg Tablet PO 08/01/25 22:59 30 mg
BID BILL Administration
Atorvastatin Calcium 10 mg 07/18/25 23:15 07/18/25 23:14
Atorvastatin (Lipitor) 10 Mg Tablet PO 08/15/25 23:14 10 mg
HS BILL Administration
Bupropion HCl 300 mg 07/19/25 08:00 07/19/25 08:53
Bupropion (24hr) Extended Release 300 Mg Tablet PO 08/16/25 07:59 300 mg
DAILY BILL Administration
Calcitriol 0.25 mcg 07/18/25 22:45 07/19/25 08:53
Calcitriol 0.25 Microgram Capsule PO 08/15/25 22:44 0.25 mcg
BID BILL Administration
Cholecalciferol 50 mcg 07/19/25 08:00 07/19/25 08:53
Cholecalciferol (Vitamin D3) 50 Mcg Tablet (2,000 Units) PO 08/16/25 07:59 50 mcg
DAILY BILL Administration
Docusate Sodium 100 mg 07/18/25 22:45
Docusate Sodium 100 Mg Capsule PO 08/15/25 22:44
HSPRN PRN
constipation
Docusate Sodium 100 mg 07/18/25 22:45 07/18/25 23:14
Docusate Sodium 100 Mg Capsule PO 08/15/25 22:44 100 mg
HS BILL Administration
Enoxaparin Sodium 40 mg 07/19/25 18:00
Enoxaparin Sodium 40 Mg/0.4 Ml Syringe SC 08/16/25 17:59
QPM BILL
Hydromorphone HCl 2 mg 07/18/25 22:45 07/19/25 09:05
Hydromorphone 2 Mg Tablet PO 08/01/25 22:44 2 mg
Q4HPRN PRN Administration
severe pain
Hydromorphone HCl 0.25 mg 07/19/25 09:24
Hydromorphone 0.25 Mg/0.5 Ml Syringe IV 08/02/25 09:29
Q4H PRN
severe pain 2/2 fracture
Lactobacillus/Bifidobacterium 1 cap 07/19/25 08:00 07/19/25 08:53
Lactobac/Bifidobac (Visbiome) PO 08/16/25 07:59 1 cap
DAILY BILL Administration
Levothyroxine Sodium 100 mcg 07/19/25 06:00 07/19/25 05:41
Levothyroxine 100 Mcg Tablet PO 08/16/25 05:59 100 mcg
DAILY@0600 BILL Administration
Lidocaine 1 patch 07/18/25 22:45 07/19/25 09:05
Lidocaine 4% Topical Patch TOPICAL 08/15/25 22:44 1 patch
BIDPRN PRN Administration
LUE pain
Protocol
Pt's Own( 100 mg 07/19/25 08:00
Desvenlafaxine PO 08/16/25 07:59
Succinate 100 Mg DAILY BILL
Tablet Extended
Release 24 Hr)
Pantoprazole Sodium 40 mg 07/18/25 23:00 07/19/25 08:53
Pantoprazole 40 Mg Delayed Release Tablet PO 08/15/25 22:59 40 mg
BID BILL Administration
Patch Removal 0 patch 07/21/25 16:00
Remove Fentanyl Patch REMOVE 07/21/25 16:01
Q72H BILL
Patch Removal 0 patch 07/18/25 23:02
Remove Lidocaine Patch REMOVE 08/15/25 23:01
BIDPRN PRN
remove after 12 hrs
Sodium Chloride 0 flush 07/18/25 23:00 07/19/25 08:53
Sodium Chloride 0.9% (Flush) Syringe IV 08/15/25 22:59 1 flush
PER PROTOCOL BILL Administration
Thiamine HCl 100 mg 07/19/25 09:00 07/19/25 08:53
Thiamine 100 Mg Tablet PO 08/16/25 08:59 100 mg
DAILY BILL Administration
Home Medications
�Medication �Instructions �Recorded
omeprazole 20 mg tablet,delayed 20 mg PO BID Gastrointestinal issue 10/15/16
release
simvastatin 20 mg tablet 20 mg PO HS High cholesterol 10/15/16
bupropion HCl 300 mg 24 hr tablet, 300 mg PO DAILY 07/05/25
extended release
cholecalciferol (vitamin D3) 50 50 mcg PO DAILY 07/05/25
mcg (2,000 unit) capsule (Vitamin
D3)
denosumab 60 mg/mL subcutaneous 60 mg SC [id number] 07/05/25
syringe (Prolia)
dextroamphetamine-amphetamine 30 30 mg PO BID 07/05/25
mg tablet (Adderall)
docusate sodium 100 mg capsule 100 mg PO HS 07/05/25
(Colace)
zolpidem 10 mg tablet (Ambien) 10 mg PO HS 07/05/25
desvenlafaxine succinate 100 mg 100 mg PO DAILY 07/09/25
tablet,extended release 24 hr
levothyroxine 100 mcg tablet 100 mcg PO DAILY #30 tabs 07/10/25
(Synthroid)
docusate sodium 100 mg capsule 100 mg PO HSPRN PRN constipation 07/12/25
(Colace)
calcitriol 0.25 mcg capsule 0.25 mcg PO BID #60 caps 07/15/25
L. acidophilus 5 mg-digestive 1 cap PO DAILY 07/18/25
enzymes combo no.5 250 mg capsule
(Probiotic-Digestive Enzymes)
acetaminophen 325 mg tablet 650 mg PO Q6H PRN mild pain/fever 07/18/25
> 100.4F/WASHBURN
fentanyl 50 mcg/hr transdermal 1 patch transdermal Q72H #3 ea 07/18/25
patch
hydromorphone 2 mg tablet 2 mg Q4HPRN PRN severe pain 07/18/25
lidocaine 4 % topical patch 1 patch topical BID PRN LUE pain 07/18/25
--- NOTE | 2025-07-19 10:19 | W.PN.UPDATE ---
Update Note
Progress Note Update
I saw and evaluated the patient. I reviewed the resident�s note and agree with findings and plan as documented in the resident�s note.
Denies CP/SOB. Denies seizure activity O/N.
Gen: NAD, Awake and alert
Eyes: EOMI, PERRLA, no scleral icterus.
Neck: supple.
CV: RRR, +S1/S2, no m/r/g.
Resp: CTAB, no rales, wheezes, or rhonchi.
Abd: +BS, soft, NT, ND
Skin: No rashes.
Neuro: CN 2-12 intact, non-focal.
Psych: Normal mood and affect.
CT brain: No convincing acute intracranial abnormality noted. Asymmetrically progressed periventricular white matter low-attenuation in the right frontal region, likely related to changes of chronic small vessel ischemic disease. A small underlying
mass would be difficult to exclude. Consider MRI for further evaluation as clinically indicated.
Seizure:
-loaded with Keppra on admission
-possibly due to hypocalcemia
-neuro following, start Vimpat
Hyperparathyroidism s/p partial parathyroidectomy:
-with hypocalcemia
-Calcium gluconate given in ED
-give 2g IV calcium gluconate with persistent hypocalcemia
-continue calcitriol
-renal to see
Recent L humerus fx:
-lidoderm, IV dilaudid PRN
-seen by ortho 07/13/25, nonoperative management
-repeat L humerus Xray
-with severe pain reasonable to have ortho assess again
Other problems:
h/o Atrial fibrillation s/p ablation
h/o SDH
h/o R carotid saccular aneurysm
Hypomagnesemia: give another 2g IV Mg
h/o papillary thyroid CA s/p thyroidectomy: cont Levoxyl
HLD: cont statin
GERD: cont PPI
Depression/anxiety: cont bupropion/desvenlafaxine
DNR/Lovenox
Total time spent on today's encounter was 50 minutes which included time spent in counseling the patient/family regarding diagnosis and treatment plan as listed above, goals of care, and symptom management. Case was discussed with nursing staff,
specialists, and care coordinators/case management. All labs and imaging personally reviewed by me. Remainder the time spent in detailed review of previous records, lab data, imaging, and other medical provider documentation.
[2025-07-19] MEDS: DILAUDID 0.25 MG IV (10:29)
--- NOTE | 2025-07-19 11:14 | W.PN.HOSP.TC ---
Today's Communication/Plan
-
IV Dilaudid 0.5 mg every 4 hours as needed for fracture pain control
Follow-up upper extremity imaging
CTM calcium and magnesium: Supplement as needed
Appreciate recs from Ortho, neuro, nephro
Assessment / Plan
Assessment / Plan
Ms. Foy is 75-year-old female with ADHD, hypertension, hyperlipidemia, hyperparathyroidism s/p partial parathyroidectomy, GERD, seizures and depression/anxiety who presented to [facility] ED from [facility] for evaluation of intractable left upper
extremity pain 2/2 recent left humerus fracture. In the ED, workup was pertinent for calcium of 6.7, mag 0.8, WBC 15.3, heart rate 108, NA 131. While in the ED, she had a grand mal seizure. She was given Keppra 3 g and midazolam. Neurology was
consulted and is following. She was admitted to [facility] for further workup and management.
#Recent left humerus fracture
Her pain is not controlled with as needed Dilaudid. She is in severe pain on p.o. Dilaudid. She was seen by Ortho 07/13/2025 who recommended nonoperative management. Ortho was consulted 07/19 for further recs.
- Ortho consulted, appreciate recs:
- Follow-up repeat left humerus, shoulder, wrist, hand XR
- Start IV Dilaudid 0.5 mg every 4 hours as needed: Stop p.o. Dilaudid 2 mg as this has not helped her
#Grand mal seizure
- Neuro consulted, appreciate recs:
--Neuro to order Vimpat for for her
- S/p loaded with Keppra on admission
#Hyperparathyroidism s/p partial parathyroidectomy
#Hypocalcemia
ED calcium 6.7, repeat s/p calcium gluconate given in the ED 7.5 07/19, another dose given
- Nephrology consulted, appreciate recs
- Continue 2 g IV calcium gluconate if persistent hypocalcemia
- CTM calcium
- Continue Calcitrol 0.25 mcg twice daily
- Continue levothyroxine 100 mcg p.o. daily
- Continue Prolia 60 mg SC every 6 months
#Hypomagnesemia
1.1 in ED.
- CTM and supplement as needed
#Hyperlipidemia
- Continue home simvastatin 20 mg p.o. at bedtime
#GERD
- Continue home omeprazole 20 mg p.o. twice daily
#Depression
#Anxiety
#ADHD
- Continue Adderall 30 mg p.o. twice daily
- Continue desvenlafaxine succinate 100 mg p.o. daily
- Continue bupropion HCl 300 mg p.o. daily
- Continue zolpidem 10 mg p.o. at bedtime
DVT prophylaxis: Lovenox
CODE STATUS: DNR
Anticipated Discharge: 24 - 48 hours (Pending solar sales consultant recs and pain control)
Subjective/Interval History
-
Date of Service: July 19, 2025
-This morning, she is in extreme pain secondary to her left shoulder fracture. She is completely intolerant and afraid of anyone trying to touch her arm. I ordered IV Dilaudid 0.5 mg every 4 hours as needed and consulted Ortho for recs. Repeat
XRs of her left humerus, shoulder, hand, and wrist were ordered as well.
Objective Data
-
Labs:
Laboratory Results
07/19/25
06:46
WBC 11.2 H
Hgb 9.3 L
Hct 28.3 L
Plt Count 341
Sodium 135
Potassium 3.9
Chloride 102
Carbon Dioxide 20 L
BUN 15
Creatinine 0.9
Glucose 119 H
Calcium 7.5 L D
Vital Signs:
Vital Signs
Temp Pulse Resp BP Pulse Ox
98.3 F 86 16 144/82 100
07/19/25 07:43 07/19/25 07:43 07/19/25 07:43 07/19/25 07:43 07/19/25 08:50
I&O
07/18/25 07/19/25 07/20/25
06:59 06:59 06:59
Intake Total 0 / 0
Balance 0 / 0
Review of Systems
-
History Source: Patient
All other systems: Reviewed and negative
Constitutional: Reports Other (Intense pain especially on the left side given left upper extremity fracture)
Psych: Reports Anxious
Physical Exam
-
General: Well Nourished, Appears in Distress and Pain (Extreme pain, left upper extremity fracture)
HEENT: Normocephalic, Atraumatic and Moist Mucous Membranes
Respiratory: Clear to Auscultation and Non Labored Respirations
Cardiac: Regular Rhythm and S1/S2
GI: Soft and Nontender
Musculoskeletal: No Clubbing and Edema, Left Upper Extrem
Skin: Warm, Dry and Rash
Neuro: AO x 3
Psych: Anxious
--- NOTE | 2025-07-19 12:24 | W.CON.NEPH ---
Consultation
-
Date/Time Consultation Requested: July 18, 2025 at 1900
Date/Time Consultation Performed: July 19, 2025 at 1 PM
Requesting Provider: Robel Cerda
Performing Provider: Dr. Kenny
Reason for Consultation: Hypocalcemia and hyponatremia
Medical History
-
Chief Complaint: Hypocalcemia
History of Present Illness:
75yo F with anxiety, ADHD, hypothyroidism, HLD, GERD, insomnia, osteoporosis, afib, thyroidectomy and parathyroidectomy on 07/09/25 due to recurrent hyperparathyroidism and L superior pole papillary thyroid CA came after sustaining fall w/o LOC at
home, while she did not use her walker. Found Left mildly displaced proximal humerus fracture that can be managed non-operatively as per ortho previous admission and presented to the ER from [facility] rehab with persistent pain from a previous
admission couple days ago . pending discharge from the ER and transfer via EMS was found to develop seizure activity which she has no recollection of
Patient was found to have abnormal electrolytes and low calcium
Renal consult for low calcium 6.7
Past Medical History
Anxiety, ADHD, hypothyroidism, HLD, GERD, insomnia, osteoporosis, afib, thyroidectomy and parathyroidectomy on 07/09/25
Social History
Tobacco: Non-Smoker
Alcohol: Daily
Family History
Family History: Not Pertinent
Allergies / Home Medications
Allergy/AdvReac Type Severity Reaction Status Date / Time
No Known Allergies Allergy Verified 07/18/25 13:42
�Medication �Instructions �Recorded �Confirmed �Type
omeprazole 20 mg tablet,delayed 20 mg PO BID Gastrointestinal issue 10/15/16 07/18/25 History
release
simvastatin 20 mg tablet 20 mg PO HS High cholesterol 10/15/16 07/18/25 History
bupropion HCl 300 mg 24 hr tablet, 300 mg PO DAILY Mental 07/05/25 07/18/25 History
extended release Health/Anxiety
cholecalciferol (vitamin D3) 50 50 mcg PO DAILY Supplement 07/05/25 07/18/25 History
mcg (2,000 unit) capsule (Vitamin
D3)
denosumab 60 mg/mL subcutaneous 60 mg SC [id number] 07/05/25 07/18/25 History
syringe (Prolia)
dextroamphetamine-amphetamine 30 30 mg PO BID Mental Health/Anxiety 07/05/25 07/18/25 History
mg tablet (Adderall)
docusate sodium 100 mg capsule 100 mg PO HS Gastrointestinal Issue 07/05/25 07/18/25 History
(Colace)
zolpidem 10 mg tablet (Ambien) 10 mg PO HS Sleep 07/05/25 07/18/25 History
desvenlafaxine succinate 100 mg 100 mg PO DAILY Mental 07/09/25 07/18/25 History
tablet,extended release 24 hr Health/Anxiety
levothyroxine 100 mcg tablet 100 mcg PO DAILY #30 tabs 07/10/25 07/18/25 Rx
(Synthroid)
docusate sodium 100 mg capsule 100 mg PO HSPRN PRN constipation 07/12/25 07/18/25 History
(Colace)
calcitriol 0.25 mcg capsule 0.25 mcg PO BID #60 caps 07/15/25 07/18/25 Rx
L. acidophilus 5 mg-digestive 1 cap PO DAILY Supplement 07/18/25 07/18/25 History
enzymes combo no.5 250 mg capsule
(Probiotic-Digestive Enzymes)
acetaminophen 325 mg tablet 650 mg PO Q6H PRN mild pain/fever 07/18/25 07/18/25 History
> 100.4F/WASHBURN
fentanyl 50 mcg/hr transdermal 1 patch transdermal Q72H #3 ea 07/18/25 Rx
patch
hydromorphone 2 mg tablet 2 mg Q4HPRN PRN severe pain 07/18/25 07/18/25 History
lidocaine 4 % topical patch 1 patch topical BID PRN LUE pain 07/18/25 07/18/25 History
Review of Systems
-
No chest pain or shortness of breath
All other systems: Negative unless noted
Physical Exam
Vital Signs
Vital Signs
Temp Pulse Resp BP Pulse Ox
98.3 F 86 16 144/82 100
07/19/25 07:43 07/19/25 07:43 07/19/25 07:43 07/19/25 07:43 07/19/25 08:50
Lab Results
WBC 11.2 10^3/uL (4.8-10.8) H 07/19/25 06:46
RBC 3.37 10^6/uL (4.20-5.40) L 07/19/25 06:46
Hgb 9.3 g/dL (12.0-16.0) L 07/19/25 06:46
Hct 28.3 % (37.0-47.0) L 07/19/25 06:46
Plt Count 341 10^3/uL (130-400) 07/19/25 06:46
Sodium 135 mmol/L (135-145) 07/19/25 06:46
Potassium 3.9 mmol/L (3.5-5.1) 07/19/25 06:46
Chloride 102 mmol/L (98-107) 07/19/25 06:46
Carbon Dioxide 20 mmol/L (22-30) L 07/19/25 06:46
BUN 15 mg/dl (7-17) 07/19/25 06:46
Creatinine 0.9 mg/dL (0.6-1.0) 07/19/25 06:46
eGFR > 60.00 07/19/25 06:46
Glucose 119 mg/dl (70-99) H 07/19/25 06:46
Calcium 7.5 mg/dl (8.4-10.2) L D 07/19/25 06:46
Phosphorus 5.4 mg/dl (2.5-4.5) H 07/18/25 15:57
Albumin 4.2 g/dl (3.5-5.0) 07/18/25 15:57
Physical Exam
General no acute distress
HEENT no cephalic atraumatic extraocular muscle intact no scleral icterus no JVD neck supple
lungs clear to auscultation bilateral
heart regular S1-S2 positive
abdomen soft nontender positive bowel sounds
extremities no edema pulses present bilateral
Neurologically nonfocal alert and oriented x 3
Skin no lesions no abrasions no petechiae
Psych normal affect no bizarre behavior
Data Reviewed
-
Labs: Labs Reviewed by me and Discussed with Patient
Assessment/Plan
-
75yo F with anxiety, ADHD, hypothyroidism, HLD, GERD, insomnia, osteoporosis, afib, thyroidectomy and parathyroidectomy on 07/09/25 due to recurrent hyperparathyroidism and L superior pole papillary thyroid CA came after sustaining fall w/o LOC at
home, while she did not use her walker. Found Left mildly displaced proximal humerus fracture that can be managed non-operatively as per ortho previous admission and presented to the ER from [facility] rehab with persistent pain from a previous
admission couple days ago . pending discharge from the ER and transfer via EMS was found to develop seizure activity which she has no recollection of
Patient was found to have abnormal electrolytes and low calcium
Renal consult for low calcium 6.7
Impression
Hypocalcemia status post partial (?)parathyroidectomy 07/09
Total thyroidectomy and thyroid cancer 07/09
Seizure
Status post trauma proximal humerus fracture
Plan.
Continue calcium and vitamin D
PTH less than 3.4 on 07/18
Rapid PTH 268 down to 12.8 postsurgical interop
Per op notes does not appear it was a total parathyroidectomy as some was preserved although PTH is significantly elevated at less than 3.4
Continue calcitriol
Continue cholecalciferol and check vitamin D 25 OH level
Add calcium carbonate
Will need endocrine outpatient
--- NOTE | 2025-07-19 12:54 | W.PN.UPDATE ---
Update Note
Progress Note Update
75-year-old [id number] female with a left proximal humerus fracture readmitted to [facility] due to severe pain. X-rays of the left hand, wrist, humerus and shoulder were obtained and reviewed. Repeat x-rays of the left shoulder show interval
displacement of her left comminuted proximal humerus fracture. Case discussed with Dr. Rojo. Case also discussed with primary team. Recommended proceeding with left reverse total shoulder replacement as long as medically cleared. This is
scheduled for this upcoming 07/23/2025 under the direction of Dr. Rojo. Patient to remain NWB to LUE in sling. Remain NPO pMN 07/22/2025. CT scan left shoulder ordered for pre-operative planning. Orthopedic surgery will continue to
follow.
[2025-07-19] MEDS: OSCAL CAL 500 1000 MG PO ×2 (13:08→20:39)
[2025-07-19] MEDS: TYLENOL 1000 MG PO ×2 (14:28→20:40)
[2025-07-19] MEDS: DILAUDID 0.5 MG IV ×2 (14:45→21:12)
[2025-07-19] MEDS: CALCIUM GLUCONATE 100 IV (14:46)
--- NOTE | 2025-07-19 15:43 | CM ---
Addendum entered by Haley Dos Santos 07/19/25 15:53:
[facility] referral placed.
Original Note:
Reviewed chart
Patient falling asleep while interviewing.
Left humeral fx.
Plan left total shoulder replacement on Tuesday.
Patient lives alone at [facility] living apartment, 2nd floor apartment with elevator. Ramp to the 2nd floor.
Walk in shower w/ grab bar.
She was independent with ADLs.
Ambulates with cane or walker
Patient can drive.
Recent admission to [facility] for rehab, no bed hold.
Patient agreeable to [facility] for skilled rehab.
Plan: hopefully [facility] skilled rehab, referral placed.
--- NOTE | 2025-07-19 16:18 | PTCARENOTE ---
Pt awake and alert, moves RUE and legs minimally; refuses to move LUE; does not want extremity touched' Pt screams whenever she is touched anywhere; refuses q 1 hr turns- will shift position slightly with much encouragement , but will not stay on
her side d/t 'too much pain' in LUE. LUE with +1 edema/large areas of ecchymosis; arm sling in place; circ/neuro check to LUE WNL. VSS. Telemetry:NSR. Currently on room air- pulse ox 97%, no SOB noted. Abd large, soft, taking only small amts
fluids; refuses meal trays; stated 'All I want is something to drink'. Incont urine; unable to use bedpan d/t discomfort with movement. Medicated with IV Dilaudid as ordered for LUE pain with moderate effect. Resting in bed at present. Will
continue to monitor.
--- NOTE | 2025-07-19 16:48 | CM ---
Spoke with Sofia in admissions at [facility] who stated that patient is not a bed hold. Spoke with Ana in admissions at [facility] who stated that she can accept patient there as patient is from their Independent Living.
Plan: Case management will continue to follow and assist with discharge planning. SNF when stable.
[2025-07-19] MEDS: LOVENOX 40 MG SC (17:30)
[2025-07-19] MEDS: ADDERALL PO (20:35)
[2025-07-19] MEDS: VIMPAT 100 MG PO (20:40)
[2025-07-19] MEDS: COLACE 100 MG PO (20:41)
[2025-07-19] MEDS: LIPITOR 10 MG PO (20:41)
[2025-07-20 03:53] VITALS: BP 119/80
[2025-07-20] MEDS: TYLENOL PO (04:27)
[2025-07-20] MEDS: SYNTHROID 100 MCG PO (05:43)
[2025-07-20] MEDS: DILAUDID 0.5 MG IV ×3 (05:56→18:42)
[2025-07-20 07:00] VITALS: BP 127/73
--- NOTE | 2025-07-20 07:32 | W.PN.HOSP.TC ---
Today's Communication/Plan
-
See A/P
Assessment / Plan
Assessment / Plan
Assessment/plan
#Abrupt onset of generalized tonic clonic seizure
-S/p loaded with Keppra in the ED
-Neuro input appreciated
-Continue lacosamide 100 mg twice daily
-Avoid Keppra in the future due to history of mental health
-Head and neck CTA pending
#Left humerus fracture s/p mechanical fall
-Presented at the previous admission with a fracture, Ortho evaluated on 07/13
-Reevaluated this admission, plans for left reverse total shoulder replacement 07/23/2025, keep n.p.o. at midnight 07/22
-Nonweightbearing to left upper extremity
-Sling at all times
-Follow-up repeat imaging, currently pending
#Hypocalcemia
#Hyperparathyroidism s/p partial parathyroidectomy
#S/p calcium gluconate in ED
#Continue GLOVE [employer]S INSPECTOR calcitriol
#Nephrology following
#Monitor BMP
#Vitamin D deficiency
-Replete with 50K vitamin D every week x 6 weeks
#Papillary thyroid cancer s/p total thyroidectomy
-Continue GLOVE [employer]S INSPECTOR levothyroxine
#Hypomagnesemia
-Replete
#Hyperlipidemia
-Continue statin
#GERD
-Continue PPI
#Depression/anxiety
-Continue bupropion, desvenlafaxine
#Anemia of chronic disease
-Hemoglobin 8.8, no active bleeding
-Monitor CBC
#History of SVT s/p successful catheter ablation
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
#insomnia on nightly Zolpidem
CODE STATUS DNR
DVT prophylaxis Lovenox
Anticipated Discharge: > 48 hours
Subjective/Interval History
-
Date of Service: July 20, 2025
Objective Data
-
Labs:
Laboratory Results
07/20/25
07:29
WBC Pending
Hgb Pending
Hct Pending
Plt Count Pending
Sodium Pending
Potassium Pending
Chloride Pending
Carbon Dioxide Pending
BUN Pending
Creatinine Pending
Glucose Pending
Calcium Pending
Total Bilirubin Pending
AST Pending
ALT Pending
Alkaline Phosphatase Pending
Vital Signs:
Vital Signs
Temp Pulse Resp BP Pulse Ox
98 F 89 18 119/80 92
07/20/25 03:53 07/20/25 03:53 07/20/25 03:53 07/20/25 03:53 07/20/25 03:53
I&O
07/19/25 07/20/25 07/21/25
06:59 06:59 06:59
Intake Total 0 / 0 630 / 630
Output Total 200 / 200
Balance 0 / 0 430 / 430
Review of Systems
-
All other systems: Reviewed and negative (Except as documented)
Physical Exam
-
General: Well Developed and Pain (Secondary to left shoulder fracture)
Respiratory: Clear to Auscultation
Cardiac: Regular Rhythm and S1/S2
GI: Soft, Nontender, Nondistended and Normal Bowel Sounds
Musculoskeletal: No Edema
Neuro: Awake, Alert, Oriented and AO x 3
Psych: Calm
[2025-07-20 08:17] LABS: Hematocrit 26.9 % (37.0-47.0); Hemoglobin 8.8 g/dL (12.0-16.0); Mean Corp Hgb Conc. 32.7 g/dL (33.0-37.0); Mean Corpuscular Volume 83.5 fL (81.0-99.0); Nucleated Red Blood Cells % 0 %; Platelet Count 367 10^3/uL (130-400); Red Cell Dist. Width 14.3 % (11.5-14.5)
[2025-07-20] MEDS: ADDERALL 30 MG PO (08:36)
[2025-07-20] MEDS: OSCAL CAL 500 1000 MG PO ×2 (08:37→19:34)
[2025-07-20] MEDS: ROCALTROL 0.25 MCG PO ×2 (08:37→19:35)
[2025-07-20] MEDS: WELLBUTRIN XL (24 hour extended release) 300 MG PO (08:37)
[2025-07-20] MEDS: PROTONIX 40 MG PO ×2 (08:37→19:35)
[2025-07-20] MEDS: VITAMIN D3 (cholecalciferol) 50 MCG PO (08:37)
[2025-07-20] MEDS: TYLENOL 1000 MG PO ×3 (08:37→19:35)
[2025-07-20] MEDS: VIMPAT 100 MG PO ×2 (08:37→19:35)
[2025-07-20] MEDS: VISBIOME 1 CAP PO (08:37)
[2025-07-20] MEDS: VITAMIN B1 100 MG PO (08:37)
[2025-07-20 08:46] LABS: ALT (SGPT) 18 U/L (0-35); AST (SGOT) 21 U/L (14-36); Albumin 3.8 g/dl (3.5-5.0); Alkaline Phosphatase 79 U/L (38-126); Blood Urea Nitrogen 16 mg/dl (7-17); Calcium 7.7 mg/dl (8.4-10.2); Carbon Dioxide 22 mmol/L (22-30); Chloride 101 mmol/L (98-107); Estimated Creatinine Clearance 52 ml/min; Glucose 125 mg/dl (70-99); Magnesium 1.7 mg/dl (1.6-2.3); Potassium 3.7 mmol/L (3.5-5.1); Sodium 135 mmol/L (135-145); Total Protein 6.6 g/dl (6.3-8.2); eGFR 59.12
[2025-07-20 09:02] LABS: Vitamin D, 25-OH*** 27.7 ng/mL (30-80)
--- NOTE | 2025-07-20 09:26 | W.PN.UPDATE ---
Update Note
Progress Note Update
I saw and evaluated the patient. I reviewed the resident�s note and agree with findings and plan as documented in the resident�s note.
Pt states she feels 'sore.'
Gen: remains NAD, Awake and alert
Eyes: EOMI, PERRLA, no scleral icterus.
Neck: supple.
CV: remains RRR, +S1/S2, no m/r/g.
Resp: remains CTAB, no rales, wheezes, or rhonchi.
Abd: +BS, soft, NT, ND
Skin: No rashes.
Neuro: CN 2-12 intact, non-focal.
Psych: Normal mood and affect.
CT brain: No convincing acute intracranial abnormality noted. Asymmetrically progressed periventricular white matter low-attenuation in the right frontal region, likely related to changes of chronic small vessel ischemic disease. A small underlying
mass would be difficult to exclude. Consider MRI for further evaluation as clinically indicated.
Seizure:
-loaded with Keppra on admission
-possibly due to hypocalcemia
-neuro following, started on Vimpat
Hyperparathyroidism s/p partial parathyroidectomy:
-with hypocalcemia
-Calcium gluconate given in ED
-s/p IV calcium gluconate
-cont PO Ca
-continue calcitriol
-25-OH Vit D low, replete with 50K Vit D Qwk x 6 weeks
-renal following, outpt endocrine
Recent L humerus fx:
-lidoderm, IV dilaudid PRN
-ortho saw in c/s
-check CT LUE
-for left reverse total shoulder replacement 07/23/25
Other problems:
h/o Atrial fibrillation s/p ablation
h/o SDH
h/o R carotid saccular aneurysm
Hypomagnesemia, resolved
h/o papillary thyroid CA s/p thyroidectomy: cont Levoxyl
HLD: cont statin
GERD: cont PPI
Depression/anxiety: cont bupropion/desvenlafaxine
DNR/Lovenox
[2025-07-20] MEDS: DRISDOL (VITAMIN D2) 50000 UNITS PO (10:00)
--- NOTE | 2025-07-20 10:53 | W.PN.UPDATE ---
Update Note
Progress Note Update
Ms. Weber is resting comfortably in bed this morning. She endorsed some discomfort in her left shoulder and hand, but states her pain is managed well with her current pain management regimen. She is planned for OR this upcoming Tuesday. We reviewed
the risks, benefits, alternatives, recovery process and potential complication of reverse total shoulder replacement. She verbalized understanding. Surgical and blood consent signed and placed on patient chart.
Directed exam of the left shoulder reveals edema and ecchymosis throughout the right upper extremity. Tenderness about the proximal humerus. Neurovascularly intact distally.
Hgb 8.8 this AM.
--Continue sling for immobilization and comfort.
--Pain control prn. Ice for edema control.
--Continue to monitor H/H.
--Lovenox will need to be stopped prior to OR.
--Orthopedics will continue to follow along.
[2025-07-20 11:00] VITALS: BP 110/59
[2025-07-20] MEDS: MAGNESIUM OXIDE 400 MG PO (11:04)
[2025-07-20] MEDS: KCL 20 MEQ PO (11:04)
--- NOTE | 2025-07-20 12:51 | W.PN.NEPH.PH ---
Today's Communication / Plan
-
Continue current medication regimen
AM labs
Assessment/Plan
-
75yo F with anxiety, ADHD, hypothyroidism, HLD, GERD, insomnia, osteoporosis, afib, thyroidectomy and parathyroidectomy on 07/09/25 due to recurrent hyperparathyroidism and L superior pole papillary thyroid CA came after sustaining fall w/o LOC at
home, while she did not use her walker. Found Left mildly displaced proximal humerus fracture that can be managed non-operatively as per ortho previous admission and presented to the ER from [facility] with persistent pain from a previous
admission couple days ago . pending discharge from the ER and transfer via EMS was found to develop seizure activity which she has no recollection of
Patient was found to have abnormal electrolytes and low calcium
Renal consult for low calcium 6.7
Impression
Hypocalcemia status post partial (?)parathyroidectomy 07/09
Total thyroidectomy and thyroid cancer 07/09
Seizure
Status post trauma proximal humerus fracture
Plan.
Continue calcium and vitamin D
PTH less than 3.4 on 07/18
Rapid PTH 268 down to 12.8 postsurgical interop
Per op notes does not appear it was a total parathyroidectomy as some was preserved although PTH is significantly elevated at less than 3.4
Continue calcitriol
Continue cholecalciferol and check vitamin D 25 OH level= 27
Continue calcium carbonate
Vitamin D ergocalciferol 50,000 IUs weekly
Will need endocrine outpatient
-
-
Date of Service: July 20, 2025
CC / HPI / ROS
-
Chief Complaint:
Seizure
History of Present Illness:
Presents with seizure and hypocalcium status post partial parathyroidectomy and thyroidectomy and hypocalcemia
Review of Systems:
No chest pain or shortness of breath
Labs
-
Labs:
WBC 10.9 10^3/uL (4.8-10.8) H 07/20/25 07:29
RBC 3.22 10^6/uL (4.20-5.40) L 07/20/25 07:29
Hgb 8.8 g/dL (12.0-16.0) L 07/20/25 07:29
Hct 26.9 % (37.0-47.0) L 07/20/25 07:29
Plt Count 367 10^3/uL (130-400) 07/20/25 07:29
Sodium 135 mmol/L (135-145) 07/20/25 07:
Potassium 3.7 mmol/L (3.5-5.1) 07/20/25 07:
Chloride 101 mmol/L (98-107) 07/20/25 07:29
Carbon Dioxide 22 mmol/L (22-30) 07/20/25 07:
BUN 16 mg/dl (7-17) 07/20/25 07:
Creatinine 1.0 mg/dL (0.6-1.0) 07/20/25 07:29
eGFR 59.12 07/20/25 07:29
Glucose 125 mg/dl (70-99) H 07/20/25 07:29
Calcium 7.7 mg/dl (8.4-10.2) L 07/20/25 07:29
Phosphorus 5.4 mg/dl (2.5-4.5) H 07/18/25 15:57
Albumin 3.8 g/dl (3.5-5.0) 07/20/25 07:29
Physical Exam
-
Vital Signs:
Vital Signs
Temp Pulse Resp BP Pulse Ox
98 F 84 16 110/59 99
07/20/25 11:00 07/20/25 11:00 07/20/25 11:00 07/20/25 11:00 07/20/25 11:00
Respiratory:: Bilateral: CTA
Lung Excursion:: Normal
Abdomen:: Soft
Bowel Sounds:: Normal
Extremity Edema:: None: Bilateral:
[2025-07-20 15:00] VITALS: BP 137/74
[2025-07-20] MEDS: LOVENOX 40 MG SC (17:25)
[2025-07-20 19:18] VITALS: BP 151/80
[2025-07-20] MEDS: ADDERALL PO (19:23)
[2025-07-20] MEDS: AMBIEN 5 MG PO (21:11)
[2025-07-20] MEDS: COLACE 100 MG PO (21:11)
[2025-07-20] MEDS: LIPITOR 10 MG PO (21:11)
--- NOTE | 2025-07-20 22:40 | W.PN.UPDATE ---
Update Note
Progress Note Update
Pt insisting on wanting alfonzo ordered that she takes at home. She is prescribed 10mg and she states she has been taking them for 5 yrs. Only ordered 5mg due to being on narcs in hospital. She was not happy about decreased dose. After ambien, she
did become confused overnight.�Bed alarm placed.
[2025-07-20 23:58] VITALS: BP 122/64
[2025-07-21] MEDS: DILAUDID 0.5 MG IV ×4 (02:50→21:51)
[2025-07-21] MEDS: TYLENOL PO ×2 (02:50→20:49)
--- NOTE | 2025-07-21 03:00 | PTCARENOTE ---
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 Pt currently resting in bed.
[2025-07-21 03:11] LABS: COVID-19 Antigen Negative (Negative)
[2025-07-21 03:28] VITALS: BP 138/81
[2025-07-21] MEDS: SYNTHROID 100 MCG PO (04:56)
--- NOTE | 2025-07-21 05:48 | PTCARENOTE ---
Pt confused, combative, uncooperative and verbally abusive towards staff after Ambien administration, house OUTPATIENT FACILITY PHYSICAL THERAPIST aware. Pt refusing turns, and patient care from RN throughout shift. See provider note.
[2025-07-21 06:49] LABS: Hematocrit 25.9 % (37.0-47.0); Hemoglobin 8.6 g/dL (12.0-16.0); Mean Corp Hgb Conc. 33.2 g/dL (33.0-37.0); Mean Corpuscular Volume 85.2 fL (81.0-99.0); Nucleated Red Blood Cells % 0 %; Platelet Count 416 10^3/uL (130-400); Red Cell Dist. Width 14.0 % (11.5-14.5)
[2025-07-21 07:01] VITALS: BP 144/80
--- NOTE | 2025-07-21 07:15 | W.PN.HOSP.TC ---
Today's Communication/Plan
-
See A/P
Assessment / Plan
Assessment / Plan
Assessment/plan
#Abrupt onset of generalized tonic clonic seizure
-S/p loaded with Keppra in the ED
-Neuro input appreciated
-Continue lacosamide 100 mg twice daily
-Avoid Keppra in the future due to history of mental health
-Head and neck CTA-50-70% diameter stenosis in the proximal left ICA secondary to moderate atherosclerotic plaque along the posterior wall. Less than 50% diameter stenosis in the proximal right ICA. 8.7 mm SACCULAR ANEURYSM protruding posteriorly
from the DISTAL CAVERNOUS SEGMENT of the intracranial RIGHT ICA.
#Change in mental status secondary to medication side effect
-Episodes of confusion with Ambien use yesterday,
-Increased risk for confusion given concomitant use with narcotics
-Avoid nightly Ambien use
#Left humerus fracture s/p mechanical fall
-Presented at the previous admission with a fracture, Ortho evaluated on 07/13
-Reevaluated this admission, Repeat imaging studies done
-plans for left reverse total shoulder replacement 07/23/2025, keep n.p.o. at midnight 07/22
-Nonweightbearing to left upper extremity
-Sling at all times
#Hypocalcemia
#Hyperparathyroidism s/p partial parathyroidectomy
#S/p calcium gluconate in ED
-Continue [employer]ENT[employer] calcitriol
-Nephrology following
-Monitor BMP
#Vitamin D deficiency
-Replete with 50K vitamin D every week x 6 weeks
#Papillary thyroid cancer s/p total thyroidectomy
-Continue [employer]ENT[employer] levothyroxine
#Hypomagnesemia
-Replete
#Hyperlipidemia
-Continue statin
#GERD
-Continue PPI
#Depression/anxiety
-Continue bupropion, desvenlafaxine
#Anemia of chronic disease
-Hemoglobin stable, no active bleeding
-Monitor CBC
#History of SVT s/p successful catheter ablation
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
#insomnia-stop zolpidem
CODE STATUS DNR
DVT prophylaxis Lovenox
Anticipated Discharge: > 48 hours
Subjective/Interval History
-
Patient seen at bedside, overnight events was confused.
Objective Data
-
Labs:
Laboratory Results
07/21/25
06:23
WBC 11.1 H
Hgb 8.6 L
Hct 25.9 L
Plt Count 416 H
Sodium Pending
Potassium Pending
Chloride Pending
Carbon Dioxide Pending
BUN Pending
Creatinine Pending
Glucose Pending
Calcium Pending
Total Bilirubin Pending
AST Pending
ALT Pending
Alkaline Phosphatase Pending
Vital Signs:
Vital Signs
Temp Pulse Resp BP Pulse Ox
97.9 F 89 20 138/81 95
07/21/25 03:28 07/21/25 03:28 07/21/25 03:28 07/21/25 03:28 07/21/25 03:28
I&O
07/20/25 07/21/25 07/22/25
06:59 06:59 06:59
Intake Total 630 / 630 480 / 480
Output Total 200 / 200 300 / 300
Balance 430 / 430 180 / 180
Review of Systems
-
All other systems: Reviewed and negative (Except as documented)
Physical Exam
-
General: Well Developed and Pain (Secondary to left shoulder fracture)
Respiratory: Clear to Auscultation
Cardiac: Regular Rhythm and S1/S2
GI: Soft, Nontender, Nondistended and Normal Bowel Sounds
Musculoskeletal: Other (Left arm mild swelling, placed in a sling)
Neuro: Awake, Alert, Oriented and AO x 3
Psych: Calm
[2025-07-21 07:16] LABS: ALT (SGPT) 18 U/L (0-35); AST (SGOT) 19 U/L (14-36); Albumin 3.6 g/dl (3.5-5.0); Alkaline Phosphatase 92 U/L (38-126); Blood Urea Nitrogen 15 mg/dl (7-17); Calcium 7.9 mg/dl (8.4-10.2); Carbon Dioxide 22 mmol/L (22-30); Chloride 104 mmol/L (98-107); Estimated Creatinine Clearance 57 ml/min; Glucose 125 mg/dl (70-99); Magnesium 1.4 mg/dl (1.6-2.3); Potassium 4.2 mmol/L (3.5-5.1); Sodium 135 mmol/L (135-145); Total Protein 6.4 g/dl (6.3-8.2); eGFR > 60.00
[2025-07-21] MEDS: WELLBUTRIN XL (24 hour extended release) 300 MG PO (08:10)
[2025-07-21] MEDS: TYLENOL 1000 MG PO ×2 (08:10→14:38)
[2025-07-21] MEDS: VIMPAT 100 MG PO ×2 (08:10→19:40)
[2025-07-21] MEDS: VITAMIN B1 100 MG PO (08:10)
[2025-07-21] MEDS: VISBIOME 1 CAP PO (08:10)
[2025-07-21] MEDS: PROTONIX 40 MG PO ×2 (08:10→20:55)
[2025-07-21] MEDS: ROCALTROL 0.25 MCG PO ×2 (08:10→20:55)
[2025-07-21] MEDS: ADDERALL 30 MG PO (08:10)
[2025-07-21] MEDS: MAGNESIUM OXIDE 400 MG PO (08:10)
[2025-07-21] MEDS: OSCAL CAL 500 1000 MG PO ×2 (08:11→20:55)
--- NOTE | 2025-07-21 09:39 | W.PN.UPDATE ---
Update Note
Progress Note Update
I saw and evaluated the patient. I reviewed the resident�s note and agree with findings and plan as documented in the resident�s note.
No new complaints.
Gen: continues to remain NAD, Awake and alert
Eyes: EOMI, PERRLA, no scleral icterus.
Neck: supple.
CV: continues to remain RRR, +S1/S2, no m/r/g.
Resp: CTAB anteriorly, no rales, wheezes, or rhonchi.
Abd: +BS, soft, NT, ND
Skin: No rashes.
Neuro: CN 2-12 intact, non-focal.
Psych: Normal mood and affect.
CT brain: No convincing acute intracranial abnormality noted. Asymmetrically progressed periventricular white matter low-attenuation in the right frontal region, likely related to changes of chronic small vessel ischemic disease. A small underlying
mass would be difficult to exclude. Consider MRI for further evaluation as clinically indicated.
CT LUE: ACUTE COMMINUTED, IMPACTED, INTRA-ARTICULAR FRACTURE of the LEFT HUMERAL HEAD and neck with involvement of both the lesser and greater tuberosities. Marked fragmentation of the articular surface of the left humeral head.
Seizure:
-loaded with Keppra on admission
-possibly due to hypocalcemia
-neuro following, started on Vimpat
Hyperparathyroidism s/p partial parathyroidectomy:
-with hypocalcemia
-Calcium gluconate given in ED
-s/p IV calcium gluconate, will give 2g IV today
-cont PO Ca
-continue calcitriol
-25-OH Vit D low, replete with 50K Vit D Qwk x 6 weeks
-renal following, outpt endocrine
Recent L humerus fx:
-lidoderm, IV dilaudid PRN
-ortho saw in c/s
-CT LUE above
-for left reverse total shoulder replacement 07/23/25
Other problems:
h/o Atrial fibrillation s/p ablation
h/o SDH
h/o R carotid saccular aneurysm
Hypomagnesemia, 2g IV Mg today
h/o papillary thyroid CA s/p thyroidectomy: cont Levoxyl
HLD: cont statin
GERD: cont PPI
Depression/anxiety: cont bupropion/desvenlafaxine
Insomnia: pt takes Ambien at home. Received 5mg last night and had acute toxic encephalopathy from it. No further Ambien.
DNR/Lovenox
[2025-07-21] MEDS: CALCIUM GLUCONATE 100 IV (10:15)
[2025-07-21 11:01] VITALS: BP 134/79
[2025-07-21] MEDS: MAGNESIUM SULFATE 50 IV (11:21)
[2025-07-21] MEDS: ANESTHETIC LOZENGE 1 LOZENGE PO (11:26)
[2025-07-21] MEDS: LIDOCAINE 4% PATCH 1 PATCH TOPICAL (11:26)
[2025-07-21 15:00] VITALS: BP 137/79
--- NOTE | 2025-07-21 15:56 | W.PN.NEPH.PH ---
Today's Communication / Plan
-
Continue current medications calcium remains stable
Assessment/Plan
-
75yo F with anxiety, ADHD, hypothyroidism, HLD, GERD, insomnia, osteoporosis, afib, thyroidectomy and parathyroidectomy on 07/09/25 due to recurrent hyperparathyroidism and L superior pole papillary thyroid CA came after sustaining fall w/o LOC at
home, while she did not use her walker. Found Left mildly displaced proximal humerus fracture that can be managed non-operatively as per ortho previous admission and presented to the ER from [facility] rehab with persistent pain from a previous
admission couple days ago . pending discharge from the ER and transfer via EMS was found to develop seizure activity which she has no recollection of
Patient was found to have abnormal electrolytes and low calcium
Renal consult for low calcium 6.7
Impression
Hypocalcemia status post partial (?)parathyroidectomy 07/09
Total thyroidectomy and thyroid cancer 07/09
Seizure
Status post trauma proximal humerus fracture
Plan.
Continue calcium and vitamin D
PTH less than 3.4 on 07/18
Rapid PTH 268 down to 12.8 postsurgical interop
Per op notes does not appear it was a total parathyroidectomy as some was preserved although PTH is significantly elevated at less than 3.4
Continue calcitriol
Continue cholecalciferol and check vitamin D 25 OH level= 27
Continue calcium carbonate
Vitamin D ergocalciferol 50,000 IUs weekly
Will need endocrine outpatient
-
-
Date of Service: July 21, 2025
CC / HPI / ROS
-
Chief Complaint:
Seizure
History of Present Illness:
Presents with seizure and hypocalcium status post partial parathyroidectomy and thyroidectomy and hypocalcemia
Review of Systems:
No chest pain or shortness of breath
Labs
-
Labs:
WBC 11.1 10^3/uL (4.8-10.8) H 07/21/25 06:23
RBC 3.04 10^6/uL (4.20-5.40) L 07/21/25 06:23
Hgb 8.6 g/dL (12.0-16.0) L 07/21/25 06:23
Hct 25.9 % (37.0-47.0) L 07/21/25 06:23
Plt Count 416 10^3/uL (130-400) H 07/21/25 06:23
Sodium 135 mmol/L (135-145) 07/21/25 06:23
Potassium 4.2 mmol/L (3.5-5.1) 07/21/25 06:23
Chloride 104 mmol/L (98-107) 07/21/25 06:23
Carbon Dioxide 22 mmol/L (22-30) 07/21/25 06:23
BUN 15 mg/dl (7-17) 07/21/25 06:23
Creatinine 0.9 mg/dL (0.6-1.0) 07/21/25 06:23
eGFR > 60.00 07/21/25 06:23
Glucose 125 mg/dl (70-99) H 07/21/25 06:23
Calcium 7.9 mg/dl (8.4-10.2) L 07/21/25 06:23
Phosphorus 5.4 mg/dl (2.5-4.5) H 07/18/25 15:57
Albumin 3.6 g/dl (3.5-5.0) 07/21/25 06:23
Physical Exam
-
Vital Signs:
Vital Signs
Temp Pulse Resp BP Pulse Ox
98.7 F 92 18 134/79 94
07/21/25 11:01 07/21/25 11:01 07/21/25 11:01 07/21/25 11:01 07/21/25 12:56
Respiratory:: Bilateral: CTA
Lung Excursion:: Normal
Abdomen:: Soft
Bowel Sounds:: Normal
Extremity Edema:: None: Bilateral:
[2025-07-21] MEDS: LOVENOX 40 MG SC (17:20)
[2025-07-21] MEDS: MIRALAX 17 GRAMS PO (17:42)
[2025-07-21] MEDS: ADDERALL PO (19:42)
[2025-07-21 19:48] VITALS: BP 141/73
[2025-07-21] MEDS: LIPITOR 10 MG PO (20:55)
[2025-07-21] MEDS: COLACE 100 MG PO (20:55)
[2025-07-21] MEDS: REMOVE LIDOCAINE PATCH 1 PATCH REMOVE (21:05)
[2025-07-21 23:02] VITALS: BP 134/74
[2025-07-22] VITALS (7 sets, daily range): BP systolic 127–156; BP diastolic 79–93; PULSE 80
[2025-07-22] MEDS: TYLENOL PO ×2 (01:54→13:55)
[2025-07-22] MEDS: DILAUDID 0.5 MG IV ×3 (01:54→10:17)
[2025-07-22] MEDS: SYNTHROID 100 MCG PO (06:03)
[2025-07-22] MEDS: ZANAFLEX 2 MG PO (06:34)
--- NOTE | 2025-07-22 06:55 | W.PN.HOSP.TC ---
Addendum entered and electronically signed by Louie Miles MD 07/22/25 20:42:
Attending Addendum-
I saw and evaluated the patient. I reviewed the resident�s note and agree with findings and plan as documented in the resident�s note. Sub: Patient complains of 9/10 pain in left shoulder. 'why hasnt anyone treated my pain. I heard that they think
im an addict so they wont give me pain meds' provided reassurance that this wasn't the case. No other complaints. Full 12 point ROS reviewed and negative except as documented Exam: Vitals reviewed in chart GEN-mild distress due to pain Heart RRR no
M/R/G Lungs CTA B/L no W/R/R Abd soft NT ND pos BS Ext LUE in sling pulses present
Plan:
#Generalized tonic clonic seizure
-likely secondary to hypocalcemia
-loaded with Keppra in the ED
-Neuro input appreciated
-Continue lacosamide 100 mg twice daily
-DC'd Keppra due to psych side effects
# Left ICA stenosis
-asymptomatic, cont med management
-Head and neck CTA-50-70% diameter stenosis in the proximal left ICA secondary to moderate atherosclerotic plaque along the posterior wall. Less than 50% diameter stenosis in the proximal right ICA.
-f/u as OP with vasc surg cont statin
#CIMS
- due to ambien
- DC ambien
#Left humerus fracture s/p mechanical fall
-plans for left reverse total shoulder replacement 07/23, keep n.p.o. tonight
-Nonweightbearing to left upper extremity
-Sling at all times
-pain control with prn oxy morphine and Dilaudid
#Hypocalcemia
#Hyperparathyroidism s/p partial parathyroidectomy
#S/p calcium gluconate in ED
-Continue CHEM[employer] calcitriol D2 and calcium carbonate
-Nephrology following
-Monitor BMP
#Vitamin D deficiency
-Replete vitamin D weekly x 6 weeks
#Papillary thyroid cancer s/p total thyroidectomy
-Continue levothyroxine
#Hypomagnesemia
-Replete prn
-cont daily PO mag, check mg daily
#Hyperlipidemia
-Continue atorvastatin
#GERD
-Continue omeprazole
#Depression/anxiety
-Continue bupropion hold desvenlafaxine
#Anemia of chronic disease
-Hemoglobin stable
-Monitor CBC
#History of SVT s/p successful catheter ablation
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
#insomnia-stop zolpidem
# ADHD- cont adderall
CODE STATUS DNR
DVT prophylaxis Lovenox
Dispo-resides at [place] was at [facility]
ACP
Patient consented to discuss, was alone, time spent explanation of advance directives, changes in health status, patient�s health care wishes if the patient becomes unable to make health decisions, goals of care, code status, and prognosis 'i dont
want anything like that done'- 16 minutes
Time spent coordinating care, review of plan of care with resident, personally reviewed previous records in EMR, med rec, labs, radiology, d/w nursing, family total time documented is exclusive of any additional time listed that was spent in advance
care planning discussion -�51 minutes
Original Note:
Today's Communication/Plan
-
Continue management of pain, continue monitoring blood levels, monitor electrolytes, prepare for surgery tomorrow, n.p.o. after midnight
Assessment / Plan
Assessment / Plan
Assessment:
75-year-old female with past medical history of hypertension, hyperlipidemia, hyperparathyroidism, GERD, seizures presented to the ED due to intractable left upper extremity pain from [facility] rehab on 07/18/2025. While in the ED, patient had a
grand mal seizure which stopped spontaneously. She was given midazolam and Keppra as per neurology. CT brain was not convincing. She had a left recent humerus fracture for which she was seen by Ortho on 07/13/2025. There were decided to do
nonoperative management. Pain is not managed well and requires IV Dilaudid. CT of the left upper extremity showed acute, impacted, intra-articular fracture of the left humeral head. She will be going for left reverse total shoulder replacement on
07/23/2025. Patient has history of hyperparathyroidism status post partial parathyroidectomy with hypocalcemia. Nephrology has been following and were supplementing her with calcium. She will require outpatient endocrine follow-up.
#Abrupt onset of generalized tonic clonic seizure
-Keppra given in the ED due to seizure activity
-Neuro input appreciated
-Continue lacosamide 100 mg twice daily
-Head and neck CTA-50-70% diameter stenosis in the proximal left ICA secondary to moderate atherosclerotic plaque along the posterior wall. Less than 50% diameter stenosis in the proximal right ICA. 8.7 mm SACCULAR ANEURYSM protruding posteriorly
from the DISTAL CAVERNOUS SEGMENT of the intracranial RIGHT ICA.
-No further seizure activity since the ED episode
-Possibly from hypocalcemia state when she was in the ED
#Left humerus fracture s/p mechanical fall
-Presented at the previous admission with a fracture, Ortho evaluated on 07/13 and determined no need for surgery at the time
-Reevaluated this admission, Repeat imaging studies done
-CT LUE: ACUTE COMMINUTED, IMPACTED, INTRA-ARTICULAR FRACTURE of the LEFT HUMERAL HEAD and neck with involvement of both the lesser and greater tuberosities. Marked fragmentation of the articular surface of the left humeral head.
-plans for left reverse total shoulder replacement 07/23/2025, n.p.o. at midnight 07/22
-Nonweightbearing of left upper extremity
-Sling as needed
-Ortho following, input appreciated
-Hgb dropped to 7.7 today, will recheck in afternoon. May be due to left shoulder injury vs chronic anemia
-Pain management with Oxycodone, Morphine, and Dilaudid as needed
#Change in mental status secondary to medication side effect
- Had an episode of confusion with Ambien
- Resolved did not have any episodes since
- Continue to avoid nightly Ambien use
#Hypocalcemia
#Hyperparathyroidism s/p partial parathyroidectomy
#S/p calcium gluconate in ED
-Continue calcitriol
-Nephrology following, input appreciated
-Monitor BMP
-Recommended outpatient endocrine follow-up
#Anemia of chronic disease
-Hgb dropped to 7.7 today, will recheck in afternoon. May be due to left shoulder injury vs chronic anemia
-Monitor CBC
#Vitamin D deficiency
-Replete with 50K vitamin D every week x 6 weeks
#Papillary thyroid cancer s/p total thyroidectomy
-Continue levothyroxine
#Hypomagnesemia
- Monitor and replete as needed
#Hyperlipidemia
-Continue statin
#GERD
-Continue PPI
#Depression/anxiety
-continue bupropion
-desvenlafaxine not available on formulary in hospital, was getting it from home but no one to bring it today
-as per pharmacy, no substitute available but can give prn Benzo for withdrawal symptoms until medication can be gotten from home
#History of SVT s/p successful catheter ablation
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
#insomnia-stop zolpidem
CODE STATUS DNR
DVT prophylaxis Lovenox
Anticipated Discharge: 24 - 48 hours
Subjective/Interval History
-
Date of Service: July 22, 2025
Patient seen this morning around 7:45am, reports that her left shoulder pain is much worse. Not really managed well, with current medications. Otherwise has no other concerns, has not had any seizures as per the nurse, patient had a dose of
tizanidine to help with muscle relaxing earlier today alongside the hydromorphone. Lidocaine patch was applied around 7:24am. Anxious about getting surgery, wants to get it done with and she wished it was today.
Objective Data
-
Labs:
Laboratory Results
07/22/25 07/22/25
06:42 06:43
WBC Pending
Hgb Pending
Hct Pending
Plt Count Pending
Sodium Pending
Potassium Pending
Chloride Pending
Carbon Dioxide Pending
BUN Pending
Creatinine Pending
Glucose Pending
Calcium Pending
Total Bilirubin Pending
AST Pending
ALT Pending
Alkaline Phosphatase Pending
Vital Signs:
Vital Signs
Temp Pulse Resp BP Pulse Ox
98.3 F 84 18 156/88 96
07/22/25 03:39 07/22/25 03:39 07/22/25 03:39 07/22/25 03:39 07/22/25 03:39
I&O
07/20/25 07/21/25 07/22/25
06:59 06:59 06:59
Intake Total 630 / 630 480 / 480 240 / 240
Output Total 200 / 200 300 / 300
Balance 430 / 430 180 / 180 240 / 240
Review of Systems
-
History Source: Patient
Constitutional: Reports No Symptoms
EENT: Reports No Symptoms Reported
Respiratory: Reports No Symptoms
Cardiac: Reports No Symptoms
Abdomen/GI: Reports No Symptoms
Musculoskeletal: Reports Joint Pain
Skin: Reports No Symptoms
Neuro: Reports No Symptoms
Endocrine: Reports No Symptoms
Hematologic / Lymphatic: Reports No Symptoms
Allergy / Immunology: Reports No Symptoms
Psych: Reports Anxious
Physical Exam
-
General: Well Developed and Pain (left shoulder fracture causing much distress)
HEENT: Normocephalic and Atraumatic
Respiratory: Clear to Auscultation
Cardiac: Regular Rhythm and S1/S2
GI: Soft, Nontender, Nondistended and Normal Bowel Sounds
Musculoskeletal: Other (Left shoulder swelling, placed in a sling)
Skin: Warm and Dry
Neuro: Awake, Alert, Oriented and AO x 3
Psych: Calm
Data Reviewed
-
Labs: Labs Reviewed by me, Discussed with Physician and Discussed with Nurse
[2025-07-22] MEDS: ADDERALL 30 MG PO (07:24)
[2025-07-22] MEDS: OSCAL CAL 500 1000 MG PO ×2 (07:24→19:56)
[2025-07-22] MEDS: PROTONIX 40 MG PO ×2 (07:24→19:58)
[2025-07-22] MEDS: LIDOCAINE 4% PATCH 1 PATCH TOPICAL (07:24)
[2025-07-22] MEDS: VISBIOME 1 CAP PO (07:25)
[2025-07-22] MEDS: WELLBUTRIN XL (24 hour extended release) 300 MG PO (07:25)
[2025-07-22] MEDS: ROCALTROL 0.25 MCG PO ×2 (07:25→19:58)
[2025-07-22] MEDS: VITAMIN B1 100 MG PO (07:25)
[2025-07-22] MEDS: VIMPAT 100 MG PO ×2 (07:25→19:59)
[2025-07-22] MEDS: TYLENOL 1000 MG PO ×2 (07:25→19:59)
[2025-07-22] MEDS: MAGNESIUM OXIDE 400 MG PO (07:25)
[2025-07-22 08:33] LABS: ALT (SGPT) 17 U/L (0-35); AST (SGOT) 28 U/L (14-36); Albumin 3.9 g/dl (3.5-5.0); Alkaline Phosphatase 88 U/L (38-126); Blood Urea Nitrogen 15 mg/dl (7-17); Calcium 8.5 mg/dl (8.4-10.2); Carbon Dioxide 18 mmol/L (22-30); Chloride 105 mmol/L (98-107); Estimated Creatinine Clearance 65 ml/min; Glucose 125 mg/dl (70-99); Magnesium 1.6 mg/dl (1.6-2.3); Potassium 4.6 mmol/L (3.5-5.1); Sodium 136 mmol/L (135-145); Total Protein 6.9 g/dl (6.3-8.2); eGFR > 60.00
--- NOTE | 2025-07-22 08:39 | W.PN.UPDATE ---
Update Note
Progress Note Update
Ms. Weber is resting comfortably in bed this morning. She endorses continued pain about her shuolder.
Directed exam of the left shoulder reveals edema and ecchymosis throughout the right upper extremity. Tenderness about the proximal humerus. Neurovascularly intact distally.
Left proximal humerua fracture
--Plan for OR tomorrow under the direction of Dr. Rojo. NPO after midnight for OR 07/23.
--Stop Lovenox >12 hours prior to surgery. Last dose PM 07/22.
--Continue sling for immobilization and comfort.
--Pain control prn. Ice for edema control.
--Continue to monitor H/H.
--Orthopedics will continue to follow along.
[2025-07-22 08:56] LABS: Hematocrit 23.3 % (37.0-47.0); Hemoglobin 7.7 g/dL (12.0-16.0); Mean Corp Hgb Conc. 33.0 g/dL (33.0-37.0); Mean Corpuscular Volume 85.0 fL (81.0-99.0); Nucleated Red Blood Cells % 0 %; Platelet Count 505 10^3/uL (130-400); Red Cell Dist. Width 14.0 % (11.5-14.5)
--- NOTE | 2025-07-22 13:08 | W.PN.NEPH.PH ---
Today's Communication / Plan
-
follow BMP
Assessment/Plan
-
75yo F with anxiety, ADHD, hypothyroidism, HLD, GERD, insomnia, osteoporosis, afib, thyroidectomy and parathyroidectomy on 07/09/25 due to recurrent hyperparathyroidism and L superior pole papillary thyroid CA came after sustaining fall w/o LOC at
home, while she did not use her walker. Found Left mildly displaced proximal humerus fracture that can be managed non-operatively as per ortho previous admission and presented to the ER from [facility] rehab with persistent pain from a previous
admission couple days ago . pending discharge from the ER and transfer via EMS was found to develop seizure activity which she has no recollection of
Patient was found to have abnormal electrolytes and low calcium
Renal consult for low calcium 6.7
Impression
Hypocalcemia status post partial (?)parathyroidectomy 07/09
Total thyroidectomy and thyroid cancer 07/09
Seizure
Status post trauma proximal humerus fracture
Plan.
PTH less than 3.4 on 07/18
Continue calcitriol
Continue cholecalciferol and check vitamin D 25 OH level= 27
Continue calcium carbonate
Vitamin D ergocalciferol 50,000 IUs weekly
follow BMP
repeat Hgb
-
-
Date of Service: July 22, 2025
CC / HPI / ROS
-
Chief Complaint:
Seizure, hypocalcemia
History of Present Illness:
Presents with seizure and hypocalcemia status post partial parathyroidectomy and thyroidectomy and hypocalcemia
Calcium normal today
BP stable
hgb lower at 7.7
Review of Systems:
nausea
No chest pain or shortness of breath
Labs
-
Labs:
WBC 11.5 10^3/uL (4.8-10.8) H 07/22/25 08:31
RBC 2.74 10^6/uL (4.20-5.40) L 07/22/25 08:31
Plt Count 505 10^3/uL (130-400) H D 07/22/25 08:31
Sodium 136 mmol/L (135-145) 07/22/25 06:42
Potassium 4.6 mmol/L (3.5-5.1) 07/22/25 06:42
Chloride 105 mmol/L (98-107) 07/22/25 06:42
Carbon Dioxide 18 mmol/L (22-30) L 07/22/25 06:42
BUN 15 mg/dl (7-17) 07/22/25 06:42
Creatinine 0.8 mg/dL (0.6-1.0) 07/22/25 06:42
eGFR > 60.00 07/22/25 06:42
Glucose 125 mg/dl (70-99) H 07/22/25 06:42
Calcium 8.5 mg/dl (8.4-10.2) 07/22/25 06:42
Phosphorus 5.4 mg/dl (2.5-4.5) H 07/18/25 15:57
Albumin 3.9 g/dl (3.5-5.0) 07/22/25 06:42
Physical Exam
-
Vital Signs:
Vital Signs
Temp Pulse Resp BP Pulse Ox
98.2 F 81 18 135/79 97
07/22/25 11:08 07/22/25 11:08 07/22/25 11:08 07/22/25 11:08 07/22/25 11:08
Cardiovascular:: Regular rate and rhythm
Respiratory:: Bilateral: Coarse
Lung Excursion:: Normal
Abdomen:: Nontender and Soft
Bowel Sounds:: Normal
Extremity Edema:: None: Bilateral:
[2025-07-22 13:12] LABS: Hematocrit 25.7 % (37.0-47.0); Hemoglobin 8.4 g/dL (12.0-16.0)
[2025-07-22] MEDS: ZOFRAN 4 MG IV (13:47)
[2025-07-22] MEDS: MORPHINE SULFATE 1 MG IV ×2 (13:47→20:08)
[2025-07-22] MEDS: LOVENOX 40 MG SC (17:17)
[2025-07-22] MEDS: ROXICODONE 5 MG PO ×2 (17:22→22:56)
[2025-07-22] MEDS: ADDERALL PO ×2 (19:57→20:15)
[2025-07-22] MEDS: LIPITOR 10 MG PO (20:08)
[2025-07-22] MEDS: COLACE 100 MG PO (20:08)
[2025-07-22] MEDS: FLUSH (NSS) 2 FLUSH IV (20:09)
[2025-07-22] MEDS: REMOVE LIDOCAINE PATCH 1 PATCH REMOVE (20:30)
[2025-07-23] VITALS (16 sets, daily range): BP systolic 113–150; BP diastolic 66–94
[2025-07-23] MEDS: TYLENOL PO ×2 (02:30→15:22)
[2025-07-23] MEDS: MORPHINE SULFATE 1 MG IV (07:10)
[2025-07-23] MEDS: FLUSH (NSS) 2 FLUSH IV (07:12)
[2025-07-23 07:52] LABS: Hematocrit 26.8 % (37.0-47.0); Hemoglobin 8.7 g/dL (12.0-16.0); Mean Corp Hgb Conc. 32.5 g/dL (33.0-37.0); Mean Corpuscular Volume 85.9 fL (81.0-99.0); Nucleated Red Blood Cells % 0 %; Platelet Count 535 10^3/uL (130-400); Red Cell Dist. Width 14.1 % (11.5-14.5)
[2025-07-23] MEDS: WELLBUTRIN XL (24 hour extended release) PO (08:00)
[2025-07-23 08:19] LABS: ALT (SGPT) 16 U/L (0-35); AST (SGOT) 19 U/L (14-36); Albumin 3.6 g/dl (3.5-5.0); Alkaline Phosphatase 81 U/L (38-126); Blood Urea Nitrogen 17 mg/dl (7-17); Calcium 8.6 mg/dl (8.4-10.2); Carbon Dioxide 27 mmol/L (22-30); Chloride 103 mmol/L (98-107); Estimated Creatinine Clearance 57 ml/min; Glucose 114 mg/dl (70-99); Potassium 4.5 mmol/L (3.5-5.1); Sodium 137 mmol/L (135-145); Total Protein 6.4 g/dl (6.3-8.2); eGFR > 60.00
--- NOTE | 2025-07-23 08:52 | W.PN.HOSP.TC ---
Addendum entered and electronically signed by Louie Miles MD 07/23/25 22:06:
Attending Addendum-
I saw and evaluated the patient. I reviewed the resident�s note and agree with findings and plan as documented in the resident�s note. Sub: Patient seen in PACU post procedure. complains of 5/10 pain in left shoulder and states she is confused. No
other complaints. Full 12 point ROS reviewed and negative except as documented Exam: Vitals reviewed in chart GEN-NAD due to pain Heart RRR no M/R/G Lungs CTA B/L no W/R/R Abd soft NT ND pos BS Ext LUE in sling pulses present aquacell in place
Plan:
#Generalized tonic clonic seizure
-likely secondary to hypocalcemia
-loaded with Keppra in the ED
-Neuro input appreciated
-Continue lacosamide 100 mg twice daily
-DC'd Keppra due to psych side effects
# Left ICA stenosis
-asymptomatic, cont med management
-Head and neck CTA-50-70% diameter stenosis in the proximal left ICA secondary to moderate atherosclerotic plaque along the posterior wall. Less than 50% diameter stenosis in the proximal right ICA.
-f/u as OP with vasc surg cont statin
#CIMS
- resolved
#Left humerus fracture s/p mechanical fall
-07/23- left reverse total shoulder replacement Dr. Rojo
-cont WBAT
-Sling at all times
-pain control
#Hypocalcemia
#Hyperparathyroidism s/p partial parathyroidectomy
#S/p calcium gluconate in ED
-Continue [employer] calcitriol D2 and calcium carbonate
-Nephrology following
-Monitor BMP
#Vitamin D deficiency
-Replete vitamin D weekly x 6 weeks
#Papillary thyroid cancer s/p total thyroidectomy
-Continue levothyroxine
#Hypomagnesemia
-Replete prn
-cont daily PO mag, check mg daily
#Hyperlipidemia
-Continue atorvastatin
#GERD
-Continue omeprazole
#Depression/anxiety
-Continue bupropion hold desvenlafaxine
#Anemia of chronic disease
-Hemoglobin stable
-Monitor CBC
#History of SVT s/p successful catheter ablation
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
#insomnia-DC zolpidem
# ADHD- cont adderall
CODE STATUS DNR
DVT prophylaxis Lovenox
Dispo-resides at [facility] [place] was at SNF- return back to [place] SNF under my care in am
Time spent coordinating care, review of plan of care with resident, personally reviewed records in EMR, med rec, consults, notes, labs, radiology, d/w nursing � 52 mins
Original Note:
Today's Communication/Plan
-
-Plan for orthopedic surgery today
-Continue pain management as needed
-Continue following orthopedic recommendation
Assessment / Plan
Assessment / Plan
Assessment:
75-year-old female with past medical history of hypertension, hyperlipidemia, hyperparathyroidism, GERD, seizures presented to the ED due to intractable left upper extremity pain from [facility] rehab on 07/18/2025. While in the ED, patient had a
grand mal seizure which stopped spontaneously. She was given midazolam and Keppra as per neurology. CT brain was not convincing. She had a left recent humerus fracture for which she was seen by Ortho on 07/13/2025. There were decided to do
nonoperative management. Pain is not managed well and requires IV Dilaudid. CT of the left upper extremity showed acute, impacted, intra-articular fracture of the left humeral head. She will be going for left reverse total shoulder replacement on
07/23/2025. Patient has history of hyperparathyroidism status post partial parathyroidectomy with hypocalcemia. Nephrology has been following and were supplementing her with calcium. She will require outpatient endocrine follow-up.
#Abrupt onset of generalized tonic clonic seizure
-Keppra given in the ED due to seizure activity
-Neuro input appreciated
-Keppra was DC'd due to psych effects
-Continue lacosamide 100 mg twice daily
-No further seizure activity since the ED episode
-Possibly from hypocalcemia state when she was in the ED
#Left humerus fracture s/p mechanical fall
-Presented at the previous admission with a fracture, Ortho evaluated on 07/13 and determined no need for surgery at the time
-Reevaluated this admission, Repeat imaging studies done
-CT LUE: ACUTE COMMINUTED, IMPACTED, INTRA-ARTICULAR FRACTURE of the LEFT HUMERAL HEAD and neck with involvement of both the lesser and greater tuberosities. Marked fragmentation of the articular surface of the left humeral head.
-plans for left reverse total shoulder replacement 07/23/2025, n.p.o. at midnight 07/22
-Nonweightbearing of left upper extremity
-Sling as needed
-Ortho following, input appreciated
-Hemoglobin had improved yesterday, continues to improve. At 8.7 this morning
-Pain management with Oxycodone, Morphine, and Dilaudid as needed
#Change in mental status secondary to medication side effect
- Had an episode of confusion with Ambien
- Resolved did not have any episodes since
- Continue to avoid nightly Ambien use
# Left internal carotid stenosis
-Head and neck CTA-50-70% diameter stenosis in the proximal left ICA secondary to moderate atherosclerotic plaque along the posterior wall. Less than 50% diameter stenosis in the proximal right ICA. 8.7 mm SACCULAR ANEURYSM protruding posteriorly
from the DISTAL CAVERNOUS SEGMENT of the intracranial RIGHT ICA.
-Has been asymptomatic while in the hospital
-Patient will have to follow-up with vascular surgery, will continue statin
#Hypocalcemia
#Hyperparathyroidism s/p partial parathyroidectomy
#S/p calcium gluconate in ED
-Continue calcitriol
-Nephrology following, input appreciated
-Monitor BMP
-Recommended outpatient endocrine follow-up
-Calcium has remained stable, today was 8.6
#Anemia of chronic disease
-Hemoglobin has recovered, now is 8.7
-Monitor CBC
#Vitamin D deficiency
-Replete with 50K vitamin D every week x 6 weeks
#Papillary thyroid cancer s/p total thyroidectomy
-Continue levothyroxine
#Hypomagnesemia
-Monitor and replete as needed
#Hyperlipidemia
-Continue statin
#GERD
-Continue PPI
#Depression/anxiety
-continue bupropion
-desvenlafaxine not available on formulary in hospital, was getting it from home but no one to bring it today
-as per pharmacy, no substitute available but can give prn Benzo for withdrawal symptoms until medication can be gotten from home
# History of ADHD-continue Adderall
#History of SVT s/p successful catheter ablation
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
#insomnia-stop zolpidem
CODE STATUS DNR
DVT prophylaxis Lovenox
Anticipated Discharge: 24 - 48 hours
Subjective/Interval History
-
Date of Service: July 23, 2025
Saw patient this morning before her surgery. Was complaining of a lot of pain, but due to it being however before surgery was unable to receive any meds at the time. Was very agitated, had a lot of pain still complaining of left shoulder movement.
Objective Data
-
Labs:
Laboratory Results
07/23/25
06:32
WBC 8.2
Hgb 8.7 L
Hct 26.8 L
Plt Count 535 H
Sodium 137
Potassium 4.5
Chloride 103
Carbon Dioxide 27
BUN 17
Creatinine 0.9
Glucose 114 H
Calcium 8.6
Total Bilirubin 0.5
AST 19
ALT 16
Alkaline Phosphatase 81
Vital Signs:
Vital Signs
Temp Pulse Resp BP Pulse Ox
98 F 73 17 141/79 96
07/23/25 03:50 07/23/25 03:50 07/23/25 03:50 07/23/25 03:50 07/23/25 03:50
I&O
07/22/25 07/23/25 07/24/25
06:59 06:59 06:59
Intake Total 480 / 480 1440 / 1440
Balance 480 / 480 1440 / 1440
Review of Systems
-
History Source: Patient
Constitutional: Reports No Symptoms
EENT: Reports No Symptoms Reported
Respiratory: Reports No Symptoms
Cardiac: Reports No Symptoms
Abdomen/GI: Reports No Symptoms
Musculoskeletal: Reports Joint Pain
Skin: Reports No Symptoms
Neuro: Reports No Symptoms
Endocrine: Reports No Symptoms
Hematologic / Lymphatic: Reports No Symptoms
Allergy / Immunology: Reports No Symptoms
Psych: Reports Anxious
Physical Exam
-
General: Well Developed and Pain (left shoulder fracture causing much distress)
HEENT: Normocephalic and Atraumatic
Respiratory: Clear to Auscultation
Cardiac: Regular Rhythm and S1/S2
GI: Soft, Nontender, Nondistended and Normal Bowel Sounds
Musculoskeletal: Other (Left shoulder swelling, placed in a sling)
Skin: Warm and Dry
Neuro: Awake, Alert, Oriented and AO x 3
Psych: Agitated
Data Reviewed
-
Labs: Labs Reviewed by me, Discussed with Physician, Discussed with Nurse and Discussed with Patient
[2025-07-23] MEDS: DILAUDID 0.25 MG IV ×2 (12:16→12:32)
--- NOTE | 2025-07-23 12:22 | W.PN.NEPH.PH ---
Today's Communication / Plan
-
Sign off
Assessment/Plan
-
75yo F with anxiety, ADHD, hypothyroidism, HLD, GERD, insomnia, osteoporosis, afib, thyroidectomy and parathyroidectomy on 07/09/25 due to recurrent hyperparathyroidism and L superior pole papillary thyroid CA came after sustaining fall w/o LOC at
home, while she did not use her walker. Found Left mildly displaced proximal humerus fracture that can be managed non-operatively as per ortho previous admission and presented to the ER from [facility] rehab with persistent pain from a previous
admission couple days ago . pending discharge from the ER and transfer via EMS was found to develop seizure activity which she has no recollection of
Patient was found to have abnormal electrolytes and low calcium
Renal consult for low calcium 6.7
Impression
Hypocalcemia status post partial (?)parathyroidectomy 07/09
Total thyroidectomy and thyroid cancer 07/09
Seizure
Status post trauma proximal humerus fracture
Plan.
Continue calcitriol
Continue calcium carbonate
Vitamin D ergocalciferol 50,000 IUs weekly
follow BMP
Will sign off
-
-
Date of Service: July 23, 2025
CC / HPI / ROS
-
Chief Complaint:
Seizure, hypocalcemia
History of Present Illness:
Presents with seizure and hypocalcemia status post partial parathyroidectomy and thyroidectomy and hypocalcemia
Calcium normal today
BP stable
hgb up to 8.7
4 OR today left humeral fracture repair
Review of Systems:
No chest pain or shortness of breath
Labs
-
Labs:
WBC 8.2 10^3/uL (4.8-10.8) 07/23/25 06:32
RBC 3.12 10^6/uL (4.20-5.40) L 07/23/25 06:32
Hgb 8.7 g/dL (12.0-16.0) L 07/23/25 06:32
Hct 26.8 % (37.0-47.0) L 07/23/25 06:32
Plt Count 535 10^3/uL (130-400) H 07/23/25 06:32
Sodium 137 mmol/L (135-145) 07/23/25 06:32
Potassium 4.5 mmol/L (3.5-5.1) 07/23/25 06:32
Chloride 103 mmol/L (98-107) 07/23/25 06:32
Carbon Dioxide 27 mmol/L (22-30) 07/23/25 06:32
BUN 17 mg/dl (7-17) 07/23/25 06:32
Creatinine 0.9 mg/dL (0.6-1.0) 07/23/25 06:32
eGFR > 60.00 07/23/25 06:32
Glucose 114 mg/dl (70-99) H 07/23/25 06:32
Calcium 8.6 mg/dl (8.4-10.2) 07/23/25 06:32
Phosphorus 5.4 mg/dl (2.5-4.5) H 07/18/25 15:57
Albumin 3.6 g/dl (3.5-5.0) 07/23/25 06:32
Physical Exam
-
Vital Signs:
Vital Signs
Temp Pulse Resp BP Pulse Ox
97.5 F 74 9 135/85 96
07/23/25 10:15 07/23/25 12:00 07/23/25 12:00 07/23/25 12:00 07/23/25 12:00
Cardiovascular:: Regular rate and rhythm
Respiratory:: Bilateral: Coarse
Lung Excursion:: Normal
Abdomen:: Nontender and Soft
Bowel Sounds:: Normal
Extremity Edema:: None: Bilateral:
[2025-07-23] MEDS: SYNTHROID PO (15:20)
[2025-07-23] MEDS: PROTONIX PO (15:21)
[2025-07-23] MEDS: OSCAL CAL 500 PO (15:21)
[2025-07-23] MEDS: ROCALTROL PO (15:22)
[2025-07-23] MEDS: VIMPAT PO (15:22)
[2025-07-23] MEDS: VITAMIN B1 100 MG PO (15:46)
[2025-07-23] MEDS: VISBIOME 1 CAP PO (15:46)
[2025-07-23] MEDS: ANCEF 5 IV ×2 (15:50→22:42)
[2025-07-23] MEDS: MAGNESIUM OXIDE 400 MG PO (15:55)
[2025-07-23] MEDS: ADDERALL 30 MG PO (15:55)
--- NOTE | 2025-07-23 18:24 | W.PN.UPDATE ---
Update Note
Progress Note Update
Saw patient following her surgery. She was much less agitated than this morning but still continued to have some soreness, no longer in her shoulder but in her left forearm. Overall, she was very apologetic about how she treated staff earlier this
morning when she had the intense pain. She is wanting to return to [facility] tomorrow for further rehabilitation and residence (as she used to stay there before [facility])
[2025-07-23] MEDS: ANESTHETIC LOZENGE 1 LOZENGE PO (21:15)
[2025-07-23] MEDS: DILAUDID 0.5 MG IV (21:16)
[2025-07-23] MEDS: ADDERALL PO ×2 (21:16→21:17)
[2025-07-23] MEDS: ROCALTROL 0.25 MCG PO (21:17)
[2025-07-23] MEDS: OSCAL CAL 500 1000 MG PO (21:17)
[2025-07-23] MEDS: PROTONIX 40 MG PO (21:17)
[2025-07-23] MEDS: VIMPAT 100 MG PO (21:17)
[2025-07-23] MEDS: LIPITOR 10 MG PO (22:42)
[2025-07-23] MEDS: COLACE 100 MG PO (22:56)
[2025-07-24] VITALS (8 sets, daily range): BP systolic 121–157; BP diastolic 65–99; PULSE 109
[2025-07-24] MEDS: DILAUDID 0.5 MG IV ×4 (01:17→14:29)
--- NOTE | 2025-07-24 04:54 | PTCARENOTE ---
pt reported itchy skin and had removed her tele stickers and the dressing from her right shoulder surgical incision. Incision site and surrounding skin clean, dry & intact. pt refusing to have bandage replaced at this time. Care ongoing.
[2025-07-24] MEDS: SYNTHROID 100 MCG PO (06:16)
[2025-07-24 07:49] LABS: Hematocrit 24.6 % (37.0-47.0); Hemoglobin 8.0 g/dL (12.0-16.0); Mean Corp Hgb Conc. 32.5 g/dL (33.0-37.0); Mean Corpuscular Volume 85.1 fL (81.0-99.0); Nucleated Red Blood Cells % 0 %; Platelet Count 609 10^3/uL (130-400); Red Cell Dist. Width 13.9 % (11.5-14.5)
--- NOTE | 2025-07-24 08:02 | W.PN.HOSP.TC ---
Addendum entered and electronically signed by Louie Miles MD 07/24/25 23:02:
Attending Addendum-
I saw and evaluated the patient. I reviewed the resident�s note and agree with findings and plan as documented in the resident�s note. Sub: pain in left shoulder controlled with pain meds. took aquacell off due to itch. very pleasant and
appreciative of care. ready to be dc'd. Full 12 point ROS reviewed and negative except as documented Exam: Vitals reviewed in chart GEN-NAD due to pain Heart RRR no M/R/G Lungs CTA B/L no W/R/R Abd soft NT ND pos BS Ext LUE in sling pulses present
incision CDI patrick present
Plan:
#Generalized tonic clonic seizure
-likely secondary to hypocalcemia
-loaded with Keppra in the ED
-Neuro input appreciated
-Continue lacosamide 100 mg twice daily
-DC'd Keppra due to psych side effects
# Left ICA stenosis
-asymptomatic, cont med management
-Head and neck CTA-50-70% diameter stenosis in the proximal left ICA secondary to moderate atherosclerotic plaque along the posterior wall. Less than 50% diameter stenosis in the proximal right ICA.
-f/u as OP with vasc surg cont statin
#CIMS
- resolved
#Left humerus fracture s/p mechanical fall
-07/23- left reverse total shoulder replacement Dr. Rojo
-cont WBAT woth ROM activities
-Sling at all times
-pain control
- staple removal 14 days post procedure
#Hypocalcemia
#Hyperparathyroidism s/p partial parathyroidectomy
#S/p calcium gluconate in ED
-Continue [employer] calcitriol D2 and calcium carbonate
-Nephrology following
-Monitor BMP
#Vitamin D deficiency
-Replete vitamin D weekly x 6 weeks
#Papillary thyroid cancer s/p total thyroidectomy
-Continue levothyroxine
#Hypomagnesemia
-Replete prn
-cont daily PO mag, check mg daily
#Hyperlipidemia
-Continue atorvastatin
#GERD
-Continue omeprazole
#Depression/anxiety
-Continue bupropion hold desvenlafaxine
#Anemia of chronic disease
-Hemoglobin stable
-Monitor CBC
#History of SVT s/p successful catheter ablation
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
#insomnia-DC zolpidem
# ADHD- cont adderall
CODE STATUS DNR
DVT prophylaxis Lovenox
Dispo-resides at [facility] [place]F-DC to [place] [facility]
Time spent coordinating care, DC planning, review of DC plan of care with resident, transition of care, review of records, med rec/scripts sent electronically, consults, notes, d/w consultants, nursing, family, and CM and admissions at [facility] to
facilitate transfer� 34 mins >50% of this time was devoted to counseling and coordination of care
Original Note:
Today's Communication/Plan
-
PT OT evaluation
Work with case management for dispo planning
Possible discharge to [facility] based on availability
Continue management pain
Assessment / Plan
Assessment / Plan
Assessment:
75-year-old female with past medical history of hypertension, hyperlipidemia, hyperparathyroidism, GERD, seizures presented to the ED due to intractable left upper extremity pain from [facility] rehab on 07/18/2025. While in the ED, patient had a
grand mal seizure which stopped spontaneously. She was given midazolam and Keppra as per neurology. CT brain was not convincing. She had a left recent humerus fracture for which she was seen by Ortho on 07/13/2025. There were decided to do
nonoperative management. Pain is not managed well and requires IV Dilaudid. CT of the left upper extremity showed acute, impacted, intra-articular fracture of the left humeral head. She will be going for left reverse total shoulder replacement on
07/23/2025. Patient has history of hyperparathyroidism status post partial parathyroidectomy with hypocalcemia. Nephrology has been following and were supplementing her with calcium. She will require outpatient endocrine follow-up. Patient
underwent left reverse total shoulder arthroplasty.
#Abrupt onset of generalized tonic clonic seizure
-Keppra given in the ED due to seizure activity
-Neuro input appreciated
-Keppra was DC'd due to psych effects
-Continue lacosamide 100 mg twice daily
-No further seizure activity since the ED episode
-Possibly from hypocalcemia state when she was in the ED
#Left humerus fracture s/p mechanical fall
-Presented at the previous admission with a fracture, Ortho evaluated on 07/13 and determined no need for surgery at the time
-Reevaluated this admission, Repeat imaging studies done
-CT LUE: ACUTE COMMINUTED, IMPACTED, INTRA-ARTICULAR FRACTURE of the LEFT HUMERAL HEAD and neck with involvement of both the lesser and greater tuberosities. Marked fragmentation of the articular surface of the left humeral head.
- Ortho following, input appreciated
- Postop day 1 following left reverse total shoulder arthroplasty
- Non-weightbearing of left upper extremity as tolerated
- Sling recommended all the time
- Following hemoglobin, at 8.0 this morning postsurgery
- Pain management with Oxycodone, Morphine, and Dilaudid as needed
#Change in mental status secondary to medication side effect
- Had an episode of confusion with Ambien
- Resolved did not have any episodes since
- Continue to avoid nightly Ambien use
# Left internal carotid stenosis
-Head and neck CTA-50-70% diameter stenosis in the proximal left ICA secondary to moderate atherosclerotic plaque along the posterior wall. Less than 50% diameter stenosis in the proximal right ICA. 8.7 mm SACCULAR ANEURYSM protruding posteriorly
from the DISTAL CAVERNOUS SEGMENT of the intracranial RIGHT ICA.
-Has been asymptomatic while in the hospital
-Patient will have to follow-up with neurosurgery, will continue statin
#Hypocalcemia
#Hyperparathyroidism s/p partial parathyroidectomy
#S/p calcium gluconate in ED
-Continue calcitriol
-Nephrology following, input appreciated
-Monitor BMP
-Recommended outpatient endocrine follow-up
-Calcium has remained stable
#Anemia of chronic disease
- Continue monitoring hemoglobin, today was 8.0. Transfuse as needed to keep hemoglobin above 7
- Monitor CBC
#Vitamin D deficiency
-Replete with 50K vitamin D every week x 6 weeks
#Papillary thyroid cancer s/p total thyroidectomy
-Continue levothyroxine
#Hypomagnesemia
-Monitor and replete as needed
#Hyperlipidemia
-Continue statin
#GERD
-Continue PPI
#Depression/anxiety
-continue bupropion
-desvenlafaxine not available on formulary in hospital, was getting it from home but no one to bring it today
- Pharmacy reached out yesterday said desvenlafaxine can be substituted with venlafaxine, substitution was made, we will start venlafaxine ER 75 mg today
# History of ADHD-continue Adderall
#History of SVT s/p successful catheter ablation
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
#insomnia-stop zolpidem
CODE STATUS DNR
DVT prophylaxis Lovenox
Anticipated Discharge: Today
Subjective/Interval History
-
Date of Service: July 24, 2025
Patient seen this morning, still complaining of a lot of left shoulder pain sometimes radiates down to her left arm. Says that she has no fever or chills however the pain is present been causing her a lot of distress. Also complaining of some sore
throat following the intubation yesterday. Said her mood has been a bit off as well, has been a bit frustrated with some of the people here in the hospital. Overall main concern has been lack of pain management.
Objective Data
-
Labs:
Laboratory Results
07/24/25
06:59
WBC 12.3 H
Hgb 8.0 L
Hct 24.6 L
Plt Count 609 H
Sodium Pending
Potassium Pending
Chloride Pending
Carbon Dioxide Pending
BUN Pending
Creatinine Pending
Glucose Pending
Calcium Pending
Total Bilirubin Pending
AST Pending
ALT Pending
Alkaline Phosphatase Pending
Vital Signs:
Vital Signs
Temp Pulse Resp BP Pulse Ox
98.4 F 66 17 128/74 97
07/24/25 03:00 07/24/25 03:00 07/24/25 03:00 07/24/25 03:00 07/24/25 03:00
I&O
07/23/25 07/24/25 07/25/25
06:59 06:59 06:59
Intake Total 1440 / 1440 920 / 920
Balance 1440 / 1440 920 / 920
Review of Systems
-
History Source: Patient
Constitutional: Reports No Symptoms
EENT: Reports Sore Throat
Respiratory: Reports No Symptoms
Cardiac: Reports No Symptoms
Abdomen/GI: Reports No Symptoms
Musculoskeletal: Reports Joint Pain
Skin: Reports No Symptoms
Neuro: Reports No Symptoms
Endocrine: Reports No Symptoms
Hematologic / Lymphatic: Reports No Symptoms
Allergy / Immunology: Reports No Symptoms
Psych: Reports Anxious
Physical Exam
-
General: Well Developed and Pain (left shoulder fracture causing much distress)
HEENT: Normocephalic and Atraumatic
Respiratory: Clear to Auscultation
Cardiac: Regular Rhythm and S1/S2
GI: Soft, Nontender, Nondistended and Normal Bowel Sounds
Musculoskeletal: Other (Incision site around the left shoulder, nonerythematous, nondraining, slight tenderness. Unable to move left arm without discomfort. Difficulty with placing sling, was next to her on bedside)
Skin: Warm and Dry
Neuro: Awake, Alert, Oriented and AO x 3
Psych: Agitated and Anxious
Data Reviewed
-
Diagnostic Radiology: Report Reviewed by me, Discussed with Physician and Discussed with Patient
Labs: Labs Reviewed by me, Discussed with Physician and Discussed with Patient
[2025-07-24 08:15] LABS: ALT (SGPT) 14 U/L (0-35); AST (SGOT) 19 U/L (14-36); Albumin 3.6 g/dl (3.5-5.0); Alkaline Phosphatase 77 U/L (38-126); Blood Urea Nitrogen 18 mg/dl (7-17); Calcium 8.3 mg/dl (8.4-10.2); Carbon Dioxide 26 mmol/L (22-30); Chloride 102 mmol/L (98-107); Estimated Creatinine Clearance 57 ml/min; Glucose 120 mg/dl (70-99); Potassium 4.3 mmol/L (3.5-5.1); Sodium 137 mmol/L (135-145); Total Protein 6.2 g/dl (6.3-8.2); eGFR > 60.00
[2025-07-24] MEDS: VISBIOME 1 CAP PO (08:43)
[2025-07-24] MEDS: VIMPAT 100 MG PO (08:43)
[2025-07-24] MEDS: LOVENOX 40 MG SC (08:43)
[2025-07-24] MEDS: EFFEXOR XR 75 MG PO (08:44)
[2025-07-24] MEDS: VITAMIN B1 100 MG PO (08:44)
[2025-07-24] MEDS: PROTONIX 40 MG PO (08:44)
[2025-07-24] MEDS: VIBRAMYCIN 100 MG PO (08:44)
[2025-07-24] MEDS: ROCALTROL 0.25 MCG PO (08:44)
[2025-07-24] MEDS: WELLBUTRIN XL (24 hour extended release) 300 MG PO (08:45)
[2025-07-24] MEDS: ADDERALL 30 MG PO (08:45)
[2025-07-24] MEDS: MAGNESIUM OXIDE 400 MG PO (08:45)
[2025-07-24] MEDS: OSCAL CAL 500 1000 MG PO (08:45)
--- NOTE | 2025-07-24 10:54 | CM ---
spoke with Ana [facility]
bed available today- patient agreeable-tt hospitalist
IMM explained & signed. In chart
PLAN: [facility] today
Report #: [phone]
Fax #: [phone]
transportation forms on chart
--- NOTE | 2025-07-24 14:50 | W.DCSUMMARY ---
Addendum entered and electronically signed by Louie Miles MD 07/24/25 23:05:
Read, reviewed, and agree. See same day progress note for additional details. Facilitated transfer to [facility] for rehab. Verify WBS with ortho.
Wilfredo Miles MD
Original Note:
Documented by User: Robe Ledesma MD, Resident 07/24/25 15:41
Discharge Summary
Discharge Data
Date of Admission: 07/18/25
Date of Discharge: 07/24/25
-
Pending Results: No
Hospital Course
Discharging Physician : Dr. Robe Ledesma, Dr. Louie Miles
�
Disposition�:��SNF ([facility])
�
Primary�care�physician�: Dr. Naveed Jimenez
�
Principal�Discharge�Diagnosis�:�
Left humerus fracture s/p mechanical fall
Generalized tonic clonic seizure
Chronic�Discharge�Diagnosis:�
Left internal carotid stenosis
Papillary thyroid cancer s/p total thyroidectomy
Hypomagnesemia
Hyperlipidemia
GERD
Depression/anxiety
Anemia of chronic disease
Insomnia
ADHD
Hospital�Course�:��
Left humerus fracture s/p mechanical fall
- Patient found to have left recent humerus fracture, was seen by Ortho on 07/13/2025 but elected for nonoperative management
- Continued to have pain while in the ED, and while most she was in the hospital underwent CT of the left upper extremity which showed acute comminuted, impacted, intra-articular fracture of the left humeral head and neck with involvement of both
the lesser and greater tuberosities. Marked fragmentation of the articular surface of the left humeral head.
- Decided to go through surgery with planned left reverse total shoulder arthroplasty
- Underwent successful surgery: Left reverse total shoulder replacement with Dr. Palacios. Required pain medications afterwards. Required oxycodone, morphine, Dilaudid as needed. Will be discharged on oxycodone 10 mg every 6 as needed
- As per Ortho, nonweightbearing status, sling recommended all the time
Generalized tonic clonic seizure
- Had a generalized tonic clonic seizure in the ED when she presented on 07/18/2025
- Was given a dose of Keppra which stopped the seizure
- Keppra was discontinued because of the potential psych side effects that it has with her
- Patient was started on lacosamide 100 mg twice daily for seizure prevention, continue
- Patient should follow-up with neurology for further evaluation of seizures
Left internal carotid stenosis
- CTA Imaging showed left internal carotid stenosis
- Head and neck CTA-50-70% diameter stenosis in the proximal left ICA secondary to moderate atherosclerotic plaque along the posterior wall. Less than 50% diameter stenosis in the proximal right ICA.
- Has been asymptomatic but needs to follow-up with vascular surgery and continue statin
Hx of Saccular aneurysm
- Seen on CT scan: extending from right internal carotid artery at level of orbital apex -8.7 mm SACCULAR ANEURYSM protruding posteriorly from the DISTAL CAVERNOUS SEGMENT of the intracranial RIGHT ICA-CTM
- Asymptomatic in the hospital but she should follow-up with neurosurgery for further management
Papillary thyroid cancer s/p total thyroidectomy
- Presented with low calcium in the ED, was given calcium gluconate in the ED
- Calcium levels were monitored throughout her stay, which improved
- Nephrology was following. Patient was already taking calcitriol and calcium carbonate at home, which were continued
- Patient should follow-up with endocrinology in the outpatient setting or with her surgical oncologist for further workup of her hyperparathyroidism
Hypomagnesemia
- Had been repleted throughout her stay as needed
Hyperlipidemia
-Statin was changed to atorvastatin from simvastatin, continue atorvastatin
GERD
-Managed well with omeprazole, continue
Depression/anxiety
-Desvenlafaxine not in the hospital so we had to use patient's own medication, but had to switch over to venlafaxine for a day as patient was not able to get him anymore. Can return to using desvenlafaxine outside of the hospital
Anemia of chronic disease
-Hemoglobin was stable throughout her stay
Insomnia
-Patient was on zolpidem at home, but had acute mental changes from the medication. Was held, should continue holding and find other medications for insomnia in the outpatient setting.
ADHD
-Patient on Adderall, stable on current medication. Continue
Important�imaging�findings�:��
-Head and neck CTA:-50-70% diameter stenosis in the proximal left ICA secondary to moderate atherosclerotic plaque along the posterior wall. Less than 50% diameter stenosis in the proximal right ICA. Saccular aneurysm extending from right internal
carotid artery at level of orbital apex -8.7 mm SACCULAR ANEURYSM protruding posteriorly from the DISTAL CAVERNOUS SEGMENT of the intracranial RIGHT ICA-CTM
-Upper Left Extremity CT: ACUTE COMMINUTED, IMPACTED, INTRA-ARTICULAR FRACTURE of the LEFT HUMERAL HEAD and neck with involvement of both the lesser and greater tuberosities. Marked fragmentation of the articular surface of the left humeral head.
�
Discharge Plan
-
Patient Disposition: Jail/SNF
Discharge Diagnosis/Procedures: Left humerus fracture s/p mechanical fall
Generalized tonic clonic seizure
Left ICA stenosis
Hyperparathyroidism s/p partial parathyroidectomy
Depression/anxiety
Anemia of chronic disease
Condition: Fair
Diet: Regular
Activity: As tolerated
Additional Activity: Weight bearing as tolerated left arm
Driving Restrictions: No driving
Bathing Restrictions: None
Referrals:
Lloyd Dos Santos MD [Active, Surgical] - in one to two weeks
Referral Note: Please follow up with Endocrinology regarding your parathyroidectomy and calcium levels
Naveed Jimenez MD [Family Provider, Family Practice]
Stevenson Maher MD [Active, Vascular Surgery] - in one to two weeks
Referral Note: Please follow-up with Dr. Maher regarding your carotid stenosis
Marilu Clemons MD [Active, Neurosurgery] - in one to two weeks
Referral Note: Please follow up with Neurosurgery regarding your brain aneurysm
Additional Discharge Medication Instructions: Please follow up with Neurosurgery regarding your regarding R ICA aneurysm
Please follow-up with Vascular surgery regarding your carotid stenosis
Please follow up with Endocrinology regarding your hypothyroidism and low calcium levels post parathyroidectomy
Take Oxycodone 10mg every 6 hours as needed for your orthopedic pain
Please take Doxycycline twice a day for 2 more days
Your simvastatin was changed to Atorvastatin 10mg this visit
You were started on Lacosamide 100mg BID for seizure prevention
Your Ambien was held due to it causing altered mental status
Prescriptions:
New
Chloraseptic Sore Throat 6-10 mg Lozenge
1 tatyana PO Q2HPRN PRN (Reason: sore throat) Qty: 18 0RF
calcium carbonate 500 mg calcium (1,250 mg) Tablet
1,000 mg PO BID 15 Days Qty: 60 0RF
doxycycline hyclate 100 mg Capsule
100 mg PO Q12 2 Days Qty: 4 0RF
atorvastatin 10 mg Tablet
10 mg PO HS 30 Days Qty: 30 0RF
oxycodone 10 mg Tablet
10 mg PO Q6HPRN PRN (Reason: moderate pain) 7 Days Qty: 28 0RF
lacosamide 100 mg Tablet
100 mg PO BID 7 Days Qty: 14 0RF
thiamine mononitrate (vit B1) 100 mg Tablet
100 mg PO DAILY Qty: 30 0RF
Continued
omeprazole 20 MG tablet,delayed release (DR/EC)
20 mg PO BID
dextroamphetamine-amphetamine [Adderall] 30 mg Tablet
30 mg PO BID
docusate sodium [Colace] 100 mg Capsule
100 mg PO HS
bupropion HCl 300 mg Tablet Extended Release 24 Hr
300 mg PO DAILY
cholecalciferol (vitamin D3) [Vitamin D3] 50 mcg (2,000 unit) Capsule
50 mcg PO DAILY
Prolia 60 mg/mL Syringe
60 mg SC [id number]
desvenlafaxine succinate 100 mg Tablet Extended Release 24 Hr
100 mg PO DAILY
levothyroxine [Synthroid] 100 mcg tablet
100 mcg PO DAILY Qty: 30 0RF
docusate sodium [Colace] 100 mg Capsule
100 mg PO HSPRN PRN (Reason: constipation)
calcitriol 0.25 mcg Capsule
0.25 mcg PO BID Qty: 60 0RF
acetaminophen 325 mg Tablet
650 mg PO Q6H PRN (Reason: mild pain/fever > 100.4F/WASHBURN)
Probiotic-Digestive Enzymes 5-250 mg Capsule
1 cap PO DAILY
Held
zolpidem [Ambien] 10 mg Tablet
10 mg PO HS
Hold Instructions: Altered mental status changes from medication
Discontinued
simvastatin 20 MG tablet
20 mg PO HS
lidocaine 4 % Adhesive Patch,Medicated
1 patch TOPICAL BID PRN (Reason: LUE pain)
hydromorphone 2 mg tablet
2 mg Q4HPRN PRN (Reason: severe pain)
Discharge Orders:
Discharge Patient (As Directed); Ordered 07/24/25
Ordered By: Robe Ledesma
Discharge Date and Time
Discharge Date/Time: 07/24/25 18:38
Print Language: PRYDEINIG

Documented by User: Louie Miles MD 07/24/25 22:59
Discharge Summary
Discharge Data
Date of Admission: 07/18/25
Date of Discharge: 07/24/25
Discharge Plan
-
Patient Disposition: Jail/SNF
Discharge Diagnosis/Procedures: Left humerus fracture s/p mechanical fall
Generalized tonic clonic seizure
Left ICA stenosis
Hyperparathyroidism s/p partial parathyroidectomy
Depression/anxiety
Anemia of chronic disease
Condition: Fair
Diet: Regular
Activity: As tolerated
Additional Activity: Weight bearing as tolerated left arm
Driving Restrictions: No driving
Bathing Restrictions: None
Referrals:
Lloyd Dos Santos MD [Active, Surgical] - in one to two weeks
Referral Note: Please follow up with Endocrinology regarding your parathyroidectomy and calcium levels
Naveed Jimenez MD [Family Provider, Family Practice]
Stevenson Maher MD [Active, Vascular Surgery] - in one to two weeks
Referral Note: Please follow-up with Dr. Maher regarding your carotid stenosis
Marilu Clemons MD [Active, Neurosurgery] - in one to two weeks
Referral Note: Please follow up with Neurosurgery regarding your brain aneurysm
Additional Discharge Medication Instructions: Please follow up with Neurosurgery regarding your regarding R ICA aneurysm
Please follow-up with Vascular surgery regarding your carotid stenosis
Please follow up with Endocrinology regarding your hypothyroidism and low calcium levels post parathyroidectomy
Take Oxycodone 10mg every 6 hours as needed for your orthopedic pain
Please take Doxycycline twice a day for 2 more days
Your simvastatin was changed to Atorvastatin 10mg this visit
You were started on Lacosamide 100mg BID for seizure prevention
Your Ambien was held due to it causing altered mental status
Prescriptions:
New
Chloraseptic Sore Throat 6-10 mg Lozenge
1 tatyana PO Q2HPRN PRN (Reason: sore throat) Qty: 18 0RF
calcium carbonate 500 mg calcium (1,250 mg) Tablet
1,000 mg PO BID 15 Days Qty: 60 0RF
doxycycline hyclate 100 mg Capsule
100 mg PO Q12 2 Days Qty: 4 0RF
atorvastatin 10 mg Tablet
10 mg PO HS 30 Days Qty: 30 0RF
oxycodone 10 mg Tablet
10 mg PO Q6HPRN PRN (Reason: moderate pain) 7 Days Qty: 28 0RF
lacosamide 100 mg Tablet
100 mg PO BID 7 Days Qty: 14 0RF
thiamine mononitrate (vit B1) 100 mg Tablet
100 mg PO DAILY Qty: 30 0RF
Continued
omeprazole 20 MG tablet,delayed release (DR/EC)
20 mg PO BID
dextroamphetamine-amphetamine [Adderall] 30 mg Tablet
30 mg PO BID
docusate sodium [Colace] 100 mg Capsule
100 mg PO HS
bupropion HCl 300 mg Tablet Extended Release 24 Hr
300 mg PO DAILY
cholecalciferol (vitamin D3) [Vitamin D3] 50 mcg (2,000 unit) Capsule
50 mcg PO DAILY
Prolia 60 mg/mL Syringe
60 mg SC [id number]
desvenlafaxine succinate 100 mg Tablet Extended Release 24 Hr
100 mg PO DAILY
levothyroxine [Synthroid] 100 mcg tablet
100 mcg PO DAILY Qty: 30 0RF
docusate sodium [Colace] 100 mg Capsule
100 mg PO HSPRN PRN (Reason: constipation)
calcitriol 0.25 mcg Capsule
0.25 mcg PO BID Qty: 60 0RF
acetaminophen 325 mg Tablet
650 mg PO Q6H PRN (Reason: mild pain/fever > 100.4F/WASHBURN)
Probiotic-Digestive Enzymes 5-250 mg Capsule
1 cap PO DAILY
Held
zolpidem [Ambien] 10 mg Tablet
10 mg PO HS
Hold Instructions: Altered mental status changes from medication
Discontinued
simvastatin 20 MG tablet
20 mg PO HS
lidocaine 4 % Adhesive Patch,Medicated
1 patch TOPICAL BID PRN (Reason: LUE pain)
hydromorphone 2 mg tablet
2 mg Q4HPRN PRN (Reason: severe pain)
Discharge Orders:
Discharge Patient (As Directed); Ordered 07/24/25
Ordered By: Robe Ledesma
Discharge Date and Time
Discharge Date/Time: 07/24/25 18:38
Print Language: PRYDEINIG
[2025-07-24] MEDS: ROXICODONE 10 MG PO (17:28)
== END 2025-07-24 18:38 | DRG 483 ==
LOC: 2 SOUTH 20:58
PROVIDERS: Emergency Medicine; Nurse Practitioner Family; Orthopaedic Surgery Hand Surgery; Physician Assistant Medical; ADMITTING PHYSICIAN Hospitalist; ATTENDING PHYSICIAN Family Medicine; CONSULT PHYSICIAN Psychiatry & Neurology Neurology; EMERGENCY PHYSICIAN Emergency Medicine; FAMILY PHYSICIAN Family Medicine; OTHER PHYSICIAN Internal Medicine Nephrology
PROC: 0RRK00Z Replacement of Left Shoulder Joint with Reverse Ball and Socket Synthetic Substitute, Open Approach (ICD-10-PCS; 2025-07-23)
DX: S42.292A Other displaced fracture of upper end of left humerus, initial encounter for closed fracture (principal); G92.8 Other toxic encephalopathy; I10 Essential (primary) hypertension; E78.00 Pure hypercholesterolemia, unspecified; E21.3 Hyperparathyroidism, unspecified; K21.9 Gastro-esophageal reflux disease without esophagitis; F41.9 Anxiety disorder, unspecified; F32.A Depression, unspecified; I65.23 Occlusion and stenosis of bilateral carotid arteries; G40.409 Other generalized epilepsy and epileptic syndromes, not intractable, without status epilepticus; D63.8 Anemia in other chronic diseases classified elsewhere; G47.00 Insomnia, unspecified; F90.9 Attention-deficit hyperactivity disorder, unspecified type; W19.XXXA Unspecified fall, initial encounter; I67.1 Cerebral aneurysm, nonruptured; E89.0 Postprocedural hypothyroidism; Z66 Do not resuscitate; I48.91 Unspecified atrial fibrillation; T42.6X5A Adverse effect of other antiepileptic and sedative-hypnotic drugs, initial encounter; R13.13 Dysphagia, pharyngeal phase; K58.9 Irritable bowel syndrome, unspecified; F10.20 Alcohol dependence, uncomplicated; Z11.52 Encounter for screening for COVID-19; Z85.850 Personal history of malignant neoplasm of thyroid
CPT/HCPCS: 70450; 70496; 70498; 73020; 73030; 73060; 73110; 73130; 73200; 80048; 80053; 80076; 82306; 82330; 83735; 83970; 84100; 85014; 85018; 85025; 85027; 86850; 86900; 86901; 87070; 87811; 96361; 96374; 96375; 97163; 97164; 97167; 97168; 97530; 97535; 99285; C1713; C1776; Q9967

== ENCOUNTER → 2025-07-26 11:41 | Outpatient (REF) | payer OTHER, MEDICARE, SELFPAY ==
[2025-07-26 12:29] LABS: Hematocrit 24.6 % (37.0-47.0); Hemoglobin 7.8 g/dL (12.0-16.0); Mean Corp Hgb Conc. 31.7 g/dL (33.0-37.0); Mean Corpuscular Volume 87.2 fL (81.0-99.0); Platelet Count 609 10^3/uL (130-400); Red Cell Dist. Width 14.3 % (11.5-14.5)
[2025-07-26 12:39] LABS: Blood Urea Nitrogen 19 mg/dl (7-17); Calcium 7.5 mg/dl (8.4-10.2); Carbon Dioxide 26 mmol/L (22-30); Chloride 101 mmol/L (98-107); Glucose 107 mg/dl (70-99); Potassium 4.0 mmol/L (3.5-5.1); Sodium 135 mmol/L (135-145); eGFR > 60.00
== END ==
LOC: OLABP 11:41
PROVIDERS: ATTENDING PHYSICIAN Family Medicine
DX: E78.5 Hyperlipidemia, unspecified (principal); F32.A Depression, unspecified; K21.9 Gastro-esophageal reflux disease without esophagitis; G47.00 Insomnia, unspecified; E21.3 Hyperparathyroidism, unspecified; I10 Essential (primary) hypertension; E83.51 Hypocalcemia; D64.9 Anemia, unspecified; E55.9 Vitamin D deficiency, unspecified; I72.0 Aneurysm of carotid artery; C73 Malignant neoplasm of thyroid gland; R56.9 Unspecified convulsions; R26.2 Difficulty in walking, not elsewhere classified; M62.59 Muscle wasting and atrophy, not elsewhere classified, multiple sites
CPT/HCPCS: 36415; 80048; 85027

== ENCOUNTER → 2025-07-31 12:36 | Outpatient (REF) | payer OTHER, MEDICARE, SELFPAY ==
[2025-07-31 12:57] LABS: Hematocrit 26.8 % (37.0-47.0); Hemoglobin 8.4 g/dL (12.0-16.0); Mean Corp Hgb Conc. 31.3 g/dL (33.0-37.0); Mean Corpuscular Volume 87.6 fL (81.0-99.0); Nucleated Red Blood Cells % 0 %; Platelet Count 706 10^3/uL (130-400); Red Cell Dist. Width 14.5 % (11.5-14.5)
[2025-07-31 13:30] LABS: Blood Urea Nitrogen 13 mg/dl (7-17); Calcium 8.0 mg/dl (8.4-10.2); Carbon Dioxide 24 mmol/L (22-30); Chloride 99 mmol/L (98-107); Glucose 141 mg/dl (70-99); Potassium 4.7 mmol/L (3.5-5.1); Sodium 134 mmol/L (135-145); eGFR 59.12
== END ==
LOC: OLABP 12:36
PROVIDERS: ATTENDING PHYSICIAN Family Medicine
DX: I10 Essential (primary) hypertension (principal); R53.81 Other malaise; M62.549 Muscle wasting and atrophy, not elsewhere classified, unspecified hand; I72.0 Aneurysm of carotid artery; E83.51 Hypocalcemia; D64.9 Anemia, unspecified
CPT/HCPCS: 36415; 80048; 85025

== ENCOUNTER → 2025-08-09 10:41 | Outpatient (REF) | payer OTHER, MEDICARE, SELFPAY ==
[2025-08-09 11:02] LABS: Hematocrit 25.0 % (37.0-47.0); Hemoglobin 7.9 g/dL (12.0-16.0); Mean Corp Hgb Conc. 31.6 g/dL (33.0-37.0); Mean Corpuscular Volume 84.5 fL (81.0-99.0); Platelet Count 534 10^3/uL (130-400); Red Cell Dist. Width 14.2 % (11.5-14.5)
[2025-08-09 11:18] LABS: ALT (SGPT) 18 U/L (0-35); AST (SGOT) 20 U/L (14-36); Albumin 3.9 g/dl (3.5-5.0); Alkaline Phosphatase 82 U/L (38-126); Blood Urea Nitrogen 21 mg/dl (7-17); Calcium 7.3 mg/dl (8.4-10.2); Carbon Dioxide 23 mmol/L (22-30); Chloride 104 mmol/L (98-107); Glucose 95 mg/dl (70-99); Magnesium 1.4 mg/dl (1.6-2.3); Potassium 4.0 mmol/L (3.5-5.1); Sodium 140 mmol/L (135-145); Total Protein 6.9 g/dl (6.3-8.2); eGFR 59.12
[2025-08-09 11:31] LABS: Vitamin D, 25-OH*** 27.7 ng/mL (30-80)
== END ==
LOC: OLABP 10:41
PROVIDERS: ATTENDING PHYSICIAN Family Medicine
DX: S42.302D Unspecified fracture of shaft of humerus, left arm, subsequent encounter for fracture with routine healing (principal); R53.81 Other malaise; E78.5 Hyperlipidemia, unspecified; F32.A Depression, unspecified; K21.9 Gastro-esophageal reflux disease without esophagitis; G47.00 Insomnia, unspecified; E21.3 Hyperparathyroidism, unspecified; I10 Essential (primary) hypertension; E83.51 Hypocalcemia; D64.9 Anemia, unspecified; E55.9 Vitamin D deficiency, unspecified; M62.541 Muscle wasting and atrophy, not elsewhere classified, right hand; E83.42 Hypomagnesemia; C73 Malignant neoplasm of thyroid gland
CPT/HCPCS: 36415; 80053; 82306; 83735; 84100; 85027

== ENCOUNTER → 2025-08-23 10:48 | Outpatient (REF) | payer OTHER, MEDICARE, SELFPAY ==
[2025-08-23 10:57] LABS: Hematocrit 26.5 % (37.0-47.0); Hemoglobin 8.1 g/dL (12.0-16.0); Mean Corp Hgb Conc. 30.6 g/dL (33.0-37.0); Mean Corpuscular Volume 85.8 fL (81.0-99.0); Nucleated Red Blood Cells % 0 %; Platelet Count 394 10^3/uL (130-400); Red Cell Dist. Width 14.4 % (11.5-14.5)
[2025-08-23 11:07] LABS: ALT (SGPT) 19 U/L (0-35); AST (SGOT) 21 U/L (14-36); Albumin 3.9 g/dl (3.5-5.0); Alkaline Phosphatase 69 U/L (38-126); Blood Urea Nitrogen 20 mg/dl (7-17); Calcium 10.0 mg/dl (8.4-10.2); Carbon Dioxide 26 mmol/L (22-30); Chloride 102 mmol/L (98-107); Glucose 109 mg/dl (70-99); Magnesium 1.7 mg/dl (1.6-2.3); Potassium 4.0 mmol/L (3.5-5.1); Sodium 138 mmol/L (135-145); Total Protein 6.8 g/dl (6.3-8.2); eGFR 47.50
== END ==
LOC: OLABP 10:48
PROVIDERS: ATTENDING PHYSICIAN Family Medicine
DX: S42.302D Unspecified fracture of shaft of humerus, left arm, subsequent encounter for fracture with routine healing (principal); R53.81 Other malaise; F32.A Depression, unspecified; K21.9 Gastro-esophageal reflux disease without esophagitis; G47.00 Insomnia, unspecified; E21.3 Hyperparathyroidism, unspecified; I10 Essential (primary) hypertension; E83.51 Hypocalcemia; C73 Malignant neoplasm of thyroid gland; M62.59 Muscle wasting and atrophy, not elsewhere classified, multiple sites; I72.0 Aneurysm of carotid artery
CPT/HCPCS: 36415; 80053; 83735; 83970; 84100; 85025

== ENCOUNTER → 2025-09-02 09:38 | Outpatient (REF) | payer OTHER, MEDICARE, SELFPAY ==
[2025-09-02 10:32] LABS: Hematocrit 25.0 % (37.0-47.0); Hemoglobin 7.9 g/dL (12.0-16.0); Mean Corp Hgb Conc. 31.6 g/dL (33.0-37.0); Mean Corpuscular Volume 84.7 fL (81.0-99.0); Platelet Count 392 10^3/uL (130-400); Red Cell Dist. Width 15.3 % (11.5-14.5)
[2025-09-02 10:58] LABS: ALT (SGPT) 14 U/L (0-35); AST (SGOT) 16 U/L (14-36); Albumin 4.0 g/dl (3.5-5.0); Alkaline Phosphatase 64 U/L (38-126); Blood Urea Nitrogen 14 mg/dl (7-17); Calcium 8.8 mg/dl (8.4-10.2); Carbon Dioxide 26 mmol/L (22-30); Chloride 103 mmol/L (98-107); Glucose 101 mg/dl (70-99); Magnesium 1.6 mg/dl (1.6-2.3); Potassium 4.3 mmol/L (3.5-5.1); Sodium 139 mmol/L (135-145); Total Protein 6.8 g/dl (6.3-8.2); eGFR 59.12
== END ==
LOC: OLABP 09:38
PROVIDERS: ATTENDING PHYSICIAN Family Medicine
DX: E78.5 Hyperlipidemia, unspecified (principal); K21.9 Gastro-esophageal reflux disease without esophagitis; G47.00 Insomnia, unspecified; E21.3 Hyperparathyroidism, unspecified; I10 Essential (primary) hypertension; E83.51 Hypocalcemia; R53.81 Other malaise; D64.9 Anemia, unspecified; E55.9 Vitamin D deficiency, unspecified; C73 Malignant neoplasm of thyroid gland; R56.9 Unspecified convulsions; I72.0 Aneurysm of carotid artery
CPT/HCPCS: 36415; 80053; 83735; 83970; 85027

== ENCOUNTER → 2025-09-11 11:09 | Outpatient (REF) | payer OTHER, MEDICARE, SELFPAY ==
[2025-09-11 13:08] LABS: Hematocrit 24.5 % (37.0-47.0); Hemoglobin 7.8 g/dL (12.0-16.0); Mean Corp Hgb Conc. 31.8 g/dL (33.0-37.0); Mean Corpuscular Volume 85.4 fL (81.0-99.0); Platelet Count 556 10^3/uL (130-400); Red Cell Dist. Width 15.1 % (11.5-14.5)
[2025-09-11 13:42] LABS: Blood Urea Nitrogen 26 mg/dl (7-17); Calcium 7.6 mg/dl (8.4-10.2); Carbon Dioxide 21 mmol/L (22-30); Chloride 97 mmol/L (98-107); Glucose 137 mg/dl (70-99); Potassium 4.2 mmol/L (3.5-5.1); Sodium 131 mmol/L (135-145); eGFR 52.73
== END ==
LOC: OLABP 11:09
PROVIDERS: ATTENDING PHYSICIAN Family Medicine
DX: E78.5 Hyperlipidemia, unspecified (principal); K21.9 Gastro-esophageal reflux disease without esophagitis; G47.00 Insomnia, unspecified; E21.3 Hyperparathyroidism, unspecified; I10 Essential (primary) hypertension; R53.81 Other malaise; E83.51 Hypocalcemia; D64.9 Anemia, unspecified; E55.9 Vitamin D deficiency, unspecified; E83.42 Hypomagnesemia
CPT/HCPCS: 36415; 80048; 85027

== ENCOUNTER → 2025-09-12 16:52 | Outpatient (REF) | payer OTHER, MEDICARE, SELFPAY ==
[2025-09-12 19:39] LABS: Urine Character Clear (Clear)
[2025-09-12 20:20] LABS: Urine Squamous Cell 16-20 /LPF (Few)
== END ==
LOC: OLABP 16:52
PROVIDERS: ATTENDING PHYSICIAN Family Medicine
DX: R53.81 Other malaise (principal); K21.9 Gastro-esophageal reflux disease without esophagitis; E21.3 Hyperparathyroidism, unspecified; E78.5 Hyperlipidemia, unspecified; F32.A Depression, unspecified; G47.00 Insomnia, unspecified; I10 Essential (primary) hypertension; D64.9 Anemia, unspecified; E55.9 Vitamin D deficiency, unspecified; E83.42 Hypomagnesemia; F90.9 Attention-deficit hyperactivity disorder, unspecified type; R56.9 Unspecified convulsions; R26.2 Difficulty in walking, not elsewhere classified
CPT/HCPCS: 81003; 81015; 87086

== ENCOUNTER → 2025-09-18 12:13 | Outpatient (REF) | payer OTHER, MEDICARE, SELFPAY ==
[2025-09-18 12:42] LABS: Hematocrit 25.2 % (37.0-47.0); Hemoglobin 7.7 g/dL (12.0-16.0); Mean Corp Hgb Conc. 30.6 g/dL (33.0-37.0); Mean Corpuscular Volume 87.2 fL (81.0-99.0); Nucleated Red Blood Cells % 0 %; Platelet Count 752 10^3/uL (130-400); Red Cell Dist. Width 15.0 % (11.5-14.5)
[2025-09-18 12:44] LABS: Blood Urea Nitrogen 17 mg/dl (7-17); Calcium 8.4 mg/dl (8.4-10.2); Carbon Dioxide 26 mmol/L (22-30); Chloride 100 mmol/L (98-107); Glucose 131 mg/dl (70-99); Potassium 4.4 mmol/L (3.5-5.1); Sodium 133 mmol/L (135-145); eGFR 52.73
== END ==
LOC: OLABP 12:13
PROVIDERS: ATTENDING PHYSICIAN Family Medicine
DX: E21.3 Hyperparathyroidism, unspecified (principal); I10 Essential (primary) hypertension; E83.51 Hypocalcemia; R53.81 Other malaise; K21.9 Gastro-esophageal reflux disease without esophagitis; C73 Malignant neoplasm of thyroid gland
CPT/HCPCS: 36415; 80048; 85025

== ENCOUNTER → 2025-09-24 10:16 | Outpatient (REF) | payer OTHER, MEDICARE, SELFPAY ==
[2025-09-24 11:05] LABS: Hematocrit 25.7 % (37.0-47.0); Hemoglobin 7.9 g/dL (12.0-16.0); Mean Corp Hgb Conc. 30.7 g/dL (33.0-37.0); Mean Corpuscular Volume 86.5 fL (81.0-99.0); Nucleated Red Blood Cells % 0 %; Platelet Count 660 10^3/uL (130-400); Red Cell Dist. Width 15.1 % (11.5-14.5)
[2025-09-24 11:12] LABS: Blood Urea Nitrogen 18 mg/dl (7-17); Calcium 9.7 mg/dl (8.4-10.2); Carbon Dioxide 26 mmol/L (22-30); Chloride 101 mmol/L (98-107); Glucose 99 mg/dl (70-99); Potassium 4.5 mmol/L (3.5-5.1); Sodium 134 mmol/L (135-145); eGFR 52.73
== END ==
LOC: OLABP 10:16
PROVIDERS: ATTENDING PHYSICIAN Family Medicine
DX: F32.A Depression, unspecified (principal); E78.5 Hyperlipidemia, unspecified; K21.9 Gastro-esophageal reflux disease without esophagitis; G47.00 Insomnia, unspecified; E21.3 Hyperparathyroidism, unspecified; I10 Essential (primary) hypertension; E83.51 Hypocalcemia; D64.9 Anemia, unspecified; E55.9 Vitamin D deficiency, unspecified; E83.42 Hypomagnesemia
CPT/HCPCS: 36415; 80048; 85025

== ENCOUNTER → 2025-10-02 13:09 | Outpatient (REF) | payer MEDICARE, OTHER, SELFPAY | LOC: RAD 13:09 | PROVIDERS: ATTENDING PHYSICIAN Nurse Practitioner Adult Health; FAMILY PHYSICIAN Internal Medicine Geriatric Medicine | DX: R60.0 Localized edema (principal) | CPT/HCPCS: 93971 ==

== ENCOUNTER → 2025-10-16 09:18 | Outpatient (REF) | payer MEDICARE, OTHER, SELFPAY ==
[2025-10-16 09:52] LABS: Hematocrit 23.6 % (37.0-47.0); Hemoglobin 7.3 g/dL (12.0-16.0); Mean Corp Hgb Conc. 30.9 g/dL (33.0-37.0); Mean Corpuscular Volume 83.7 fL (81.0-99.0); Nucleated Red Blood Cells % 0 %; Platelet Count 440 10^3/uL (130-400); Red Cell Dist. Width 16.6 % (11.5-14.5)
[2025-10-16 10:08] LABS: ALT (SGPT) 12 U/L (0-35); AST (SGOT) 17 U/L (14-36); Albumin 3.9 g/dl (3.5-5.0); Alkaline Phosphatase 66 U/L (38-126); Blood Urea Nitrogen 13 mg/dl (7-17); Calcium 8.4 mg/dl (8.4-10.2); Carbon Dioxide 29 mmol/L (22-30); Chloride 100 mmol/L (98-107); Glucose 104 mg/dl (70-99); HDL Cholesterol 42 mg/dl; LDL Cholesterol, Calculated 114 mg/dl; Magnesium 1.6 mg/dl (1.6-2.3); Potassium 4.1 mmol/L (3.5-5.1); Sodium 136 mmol/L (135-145); Total Protein 6.8 g/dl (6.3-8.2); Very Low Density Lipoprotein 34 mg/dl (0-30); eGFR 59.12
[2025-10-16 10:12] LABS: C-Reactive Protein 39.80 mg/L (0.0-10.00)
[2025-10-16 10:29] LABS: Vitamin D, 25-OH*** 27.7 ng/mL (30-80)
[2025-10-16 10:42] LABS: TSH 29.10 uIU/ml (0.47-4.68)
[2025-10-16 11:02] LABS: Vitamin B12 664 pg/ml (239-931)
== END ==
LOC: OLABPV 09:18
PROVIDERS: ATTENDING PHYSICIAN Internal Medicine Rheumatology; FAMILY PHYSICIAN Internal Medicine Geriatric Medicine
DX: I48.0 Paroxysmal atrial fibrillation (principal); E78.2 Mixed hyperlipidemia; R56.9 Unspecified convulsions; F10.20 Alcohol dependence, uncomplicated; E55.9 Vitamin D deficiency, unspecified; E86.1 Hypovolemia; E21.3 Hyperparathyroidism, unspecified; E04.1 Nontoxic single thyroid nodule; E61.1 Iron deficiency; N18.31 Chronic kidney disease, stage 3a; D47.2 Monoclonal gammopathy; E03.9 Hypothyroidism, unspecified; M70.61 Trochanteric bursitis, right hip; M81.0 Age-related osteoporosis without current pathological fracture; Z79.899 Other long term (current) drug therapy
CPT/HCPCS: 36415; 80053; 80061; 82306; 82330; 82607; 82652; 83735; 83970; 84155; 84165; 84443; 85025; 86140

== ENCOUNTER 2025-10-29 09:48 | Emergency (ER) | payer MEDICARE, OTHER, SELFPAY ==
[2025-10-29 09:50] VITALS: BP 162/93
[2025-10-29 10:04] VITALS: BP 132/89
[2025-10-29 10:10] VITALS: BMI 32.0
[2025-10-29 10:12] VITALS: BP 132/89
--- NOTE | 2025-10-29 10:30 | ED.GENMED ---
History of Present Illness
General
Chief Complaint: Abnormal Lab Value
Source: patient
Exam Limitations: none
Time Seen by Provider: 10/29/25 10:10
Nursing documentation reviewed up to this point in time: agreed with
History of Present Illness
History of Present Illness:
75-year-old female w h/o anemia, GERD, thyroidectomy and thyroidectomy, HLD, A-fib, DVT LLE on Eliquis, anxiety/depression, recent L shoulder fracture, presents from PCP Dr. Matute's office for low hemoglobin. This was for a routine follow-up of
thyroidectomy. Patient denies any recent gastrointestinal bleeding, black stools, or changes in bowel habits. She experienced a fall resulting in a left shoulder fracture approximately one month ago while prepping for surgery (thyroidectomy) the
next day. The patient currently experiences persistent pain in both shoulders, attributing the left shoulder pain to the injury and compensatory strain on the right shoulder. To manage her pain, she uses Tylenol and topical lidocaine cream. The
patient admits to being sedentary, primarily due to her injuries. She denies CP, SOB, abd pain. Denies weakness or dizziness/lightheadedness.
Past History
Past History
ED Past Medical History: Arrthythmia, GERD, Hypercholesterolemia, Psychiatric, Other (parathyroid tumor) and Other (tachycardia)
ED Past Surgical History: Cardiac (ablation), Orthopedic and Other (parathyroid resection)
Social History
Tobacco: Non-smoker
Alcohol: None (pt states that she drinks 1-2 beers/day, but has not had an etoh drink since 01/14)
Drug: None
Personal: Single
Living: alone
Employment: Employed
Family History
Family History: Hypertension
Review of Systems
Review of Systems
Allergies reviewed?: Yes
All Other Systems: ROS reviewed and negative except as documented in HPI and ROS
Constitutional: Denies fever
Respiratory: Denies trouble breathing
Cardiac: Denies chest pain
ABD/GI: Denies abdominal pain, nausea, vomiting, diarrhea, constipated, bloody stools, black stools or anorexia
: Denies dysuria, frequency or difficulty voiding
Musculoskeletal: Reports no symptoms
Skin: Reports no symptoms
Neurological: Reports no symptoms
Phy Exam
Physical Exam
Physical Exam:
GENERAL: No acute distress. A&Ox3.
CONSTITUTIONAL: Afebrile.
EYES: clear, conjunctivae normal
ENMT: moist mucus membranes, Pharynx nl
RESPIRATORY: Regular respirations, nonlabored, lungs clear.
CARDIOVASCULAR: Regular rate and rhythm, no murmurs, no rubs.
GI: Soft, nontender, normal BS
Rectal exam: brown stool, small amount heme neg
MUSCULOSKELETAL: Moves with ease. Well perfused.
SKIN: Warm, dry, pale
PSYCH: Normal mood and affect. Well kept, interactive and appropriate
NEUROLOGIC: Awake, alert and oriented. No focal neurological deficits
Course
Orders/Labs/Results
Orders:
Orders
10/29/25 10:41
Type And Crossmatch [Type+Screen] Urgent
Complete Blood Count/With Diff Urgent
Comprehensive Metabolic Panel Urgent
10/29/25 11:00
Iron Urgent
Comment: ADD
TIBC [Total Iron Binding] Urgent
10/29/25 11:40
Add On- LAB Urgent
Tests Added?: TIBC with % saturation, Iron
Abnormal Lab Results
10/29/25 10/29/25
10:41 11:00
RBC 3.22 L 10^6/uL
(4.20-5.40)
Hgb 8.4 L g/dL
(12.0-16.0)
Hct 27.0 L %
(37.0-47.0)
MCH 26.1 L pg
(27.0-31.0)
MCHC 31.1 L g/dL
(33.0-37.0)
RDW 15.9 H %
(11.5-14.5)
Plt Count 540 H 10^3/uL
(130-400)
Absolute Neuts (auto) 7.2 H 10^3/uL
(1.4-6.5)
Absolute Lymphs (auto) 1.1 L 10^3/uL
(1.2-3.4)
Absolute Monos (auto) 0.7 H 10^3/uL
(0.1-0.6)
Neutrophils % 78.6 H %
(42.2-75.2)
Lymphocytes % 12.3 L %
(20.5-51.1)
Glucose 108 H mg/dl
(70-99)
Iron 26 L ug/dl
(37-170)
% Saturation 6 L %
(20-50)
10/29/25 10:41
10/29/25 10:41
Vital Signs
Initial and Last Documented VS:
Initial Vital Signs
Temp Pulse Resp BP Pulse Ox
98.3 F 95 18 162/93 97
10/29/25 09:50 10/29/25 09:50 10/29/25 09:50 10/29/25 09:50 10/29/25 09:50
Last Documented Vital Signs
Temp Pulse Resp BP Pulse Ox
98.3 F 88 14 109/83 97
10/29/25 09:50 10/29/25 11:00 10/29/25 11:00 10/29/25 11:00 10/29/25 10:31
MDM/Problems Addressed
Differential Diagnosis Includes:
Anemia of chronic disease, adverse effect Eliquis, GI bleed,
MDM/Problems Addressed:
75-year-old female w h/o anemia 'and they can never find out what's causing it,' CKD 2, GERD, thyroidectomy and thyroidectomy, HLD, A-fib, DVT LLE on Eliquis, anxiety/depression, recent L shoulder fracture, presents from PCP Dr. Matute's office
for low hemoglobin. This was for a routine follow-up of thyroidectomy. Patient denies any recent gastrointestinal bleeding, black stools, or changes in bowel habits. She experienced a fall resulting in a left shoulder fracture approximately one
month ago while prepping for surgery (thyroidectomy) the next day. The patient currently experiences persistent pain in both shoulders, attributing the left shoulder pain to the injury and compensatory strain on the right shoulder. To manage her
pain, she uses Tylenol and topical lidocaine cream. The patient admits to being sedentary, primarily due to her injuries. She denies CP, SOB, abd pain. Denies weakness or dizziness/lightheadedness.
CBC: Hgb 8.4, her baseline and improved from past 7 since 07/31/25
CMP normal
Spoke with Dr. Matute, asks if we would do TIBC, IRON and pt ok for discharge, he will f/u
*Pulse Oximetry
SaO2: 97
Oxygen Mode of Delivery: Room air
Patient hypoxic: no
*Critical Care Note
Total Time (30-74mins, 75-104mins- exclusive of procedures): Not Applicable
ED Attending Note
-
Portions of this chart may have been created with voice recognition software.� Occasional wrong word or��sound alike� substitutions may have occurred due to the inherent limitations of voice recognition software.
Discharge Plan
Departure
Patient Disposition: Home (Routine Discharge)
Date of Disposition: 10/29/25
Time of Disposition: 11:46
Patient with high blood pressure during this ER visit?: No
Condition: Good
Discharge Problem:
Anemia
Instructions: Anemia in adults, possibly from low iron - ED (DC)
Prescriptions:
No Action
omeprazole 20 MG tablet,delayed release (DR/EC)
20 mg PO BID
dextroamphetamine-amphetamine [Adderall] 30 mg Tablet
30 mg PO BID
bupropion HCl 300 mg Tablet Extended Release 24 Hr
300 mg PO DAILY
cholecalciferol (vitamin D3) [Vitamin D3] 50 mcg (2,000 unit) Capsule
50 mcg PO DAILY
Prolia 60 mg/mL Syringe
60 mg SC [id number]
desvenlafaxine succinate [Pristiq] 100 mg Tablet Extended Release 24 Hr
100 mg PO DAILY
levothyroxine [Synthroid] 100 mcg tablet
100 mcg PO DAILY Qty: 30 0RF
docusate sodium [Colace] 100 mg Capsule
100 mg PO HSPRN PRN (Reason: constipation)
acetaminophen 325 mg Tablet
650 mg PO Q6HPRN PRN (Reason: mild pain)
atorvastatin 10 mg Tablet
10 mg PO HS 30 Days Qty: 30 0RF
oxycodone 10 mg Tablet
10 mg PO Q6HPRN PRN (Reason: moderate pain) 7 Days Qty: 28 0RF
lacosamide 100 mg Tablet
100 mg PO BID 7 Days Qty: 14 0RF
melatonin 3 mg Tablet
3 mg PO HS
zolpidem [Ambien] 10 mg Tablet
10 mg PO HS
Visbiome 112.5 billion cell Capsule
1 cap PO DAILY
doxepin 3 mg Tablet
3 mg PO HS
Eliquis 5 mg Tablet
5 mg PO BID
Referrals:
Axel Matute MD [Family Provider, Internal Medicine] - Call in 1-3 days for appt
Activity Restrictions/Additional Instructions:
Discussed, I spoke with Dr. Matute. He asked me to order Iron studies on you and you may go home and he will follow up with you.
Call his office in 2-3 days to discuss if you don't hear from him
Nothing worrisome in your workup here today. Hemoglobin is 8.4, your baseline
Interventions
Interventions:
*Risk Screen - Suicide Last Done: 10/29/25 09:50
*General Assessment Last Done: 10/29/25 10:13
*Neglect/Abuse Screening Last Done: 10/29/25 09:50
*ED COVID-19 Vaccine History Last Done: 10/29/25 09:50
*ED Influenza Vaccine History Last Done: 10/29/25 09:50
[facility] Fall Risk Assessment Tool Last Done: 10/29/25 10:10
*Nursing Disposition Last Done: 10/29/25 11:55
Discharge Date and Time
Discharge Date/Time: 10/29/25 12:00
Print Language: [id number]
[2025-10-29 10:56] LABS: Hematocrit 27.0 % (37.0-47.0); Hemoglobin 8.4 g/dL (12.0-16.0); Mean Corp Hgb Conc. 31.1 g/dL (33.0-37.0); Mean Corpuscular Volume 83.9 fL (81.0-99.0); Nucleated Red Blood Cells % 0 %; Platelet Count 540 10^3/uL (130-400); Red Cell Dist. Width 15.9 % (11.5-14.5)
[2025-10-29 11:00] VITALS: BP 109/83
[2025-10-29 11:24] LABS: ALT (SGPT) 13 U/L (0-35); AST (SGOT) 20 U/L (14-36); Albumin 4.6 g/dl (3.5-5.0); Alkaline Phosphatase 68 U/L (38-126); Blood Urea Nitrogen 12 mg/dl (7-17); Calcium 8.4 mg/dl (8.4-10.2); Carbon Dioxide 23 mmol/L (22-30); Chloride 103 mmol/L (98-107); Estimated Creatinine Clearance 58 ml/min; Glucose 108 mg/dl (70-99); Potassium 3.9 mmol/L (3.5-5.1); Sodium 138 mmol/L (135-145); Total Protein 8.2 g/dl (6.3-8.2); eGFR > 60.00
[2025-10-29 12:21] LABS: Total Iron Binding Capacity 372 ug/dl (265-497)
[2025-10-29 13:28] LABS: Iron 26 ug/dl (37-170)
== END 2025-10-29 12:00 | disposition home or self-care (01) ==
LOC: EMR 09:48
PROVIDERS: Registered Nurse; EMERGENCY PHYSICIAN Emergency Medicine; FAMILY PHYSICIAN Internal Medicine Geriatric Medicine
DX: D64.9 Anemia, unspecified (principal); E78.00 Pure hypercholesterolemia, unspecified; I48.91 Unspecified atrial fibrillation; N18.2 Chronic kidney disease, stage 2 (mild); Z86.718 Personal history of other venous thrombosis and embolism; Z79.01 Long term (current) use of anticoagulants; M25.512 Pain in left shoulder; M25.511 Pain in right shoulder; Z87.81 Personal history of (healed) traumatic fracture
CPT/HCPCS: 99283; 80053; 83540; 83550; 85025; 86850; 86900; 86901

== ENCOUNTER → 2025-11-01 11:03 | Outpatient (REF) | payer MEDICARE, OTHER, SELFPAY ==
[2025-11-01 11:36] LABS: Hematocrit 27.5 % (37.0-47.0); Hemoglobin 7.8 g/dL (12.0-16.0); Mean Corp Hgb Conc. 28.4 g/dL (33.0-37.0); Mean Corpuscular Volume 90.8 fL (81.0-99.0); Nucleated Red Blood Cells % 0 %; Platelet Count 436 10^3/uL (130-400); Red Cell Dist. Width 16.3 % (11.5-14.5)
[2025-11-01 11:44] LABS: Iron 30 ug/dl (37-170)
[2025-11-01 11:54] LABS: Total Iron Binding Capacity 373 ug/dl (265-497)
[2025-11-01 12:19] LABS: Ferritin 10.6 ng/ml (11.1-264.0)
[2025-11-01 14:52] LABS: Anisocytosis 1+; Hypochromasia 1+; Macrocytosis 1+; Normal RBC Morphology No; Ovalocytes 1+
== END ==
LOC: OLABPV 11:03
PROVIDERS: ATTENDING PHYSICIAN Internal Medicine Geriatric Medicine
DX: I48.0 Paroxysmal atrial fibrillation (principal); E61.1 Iron deficiency; D50.8 Other iron deficiency anemias
CPT/HCPCS: 36415; 82728; 83540; 83550; 85025

== ENCOUNTER 2025-11-12 09:10 | Outpatient (RCR) | payer MEDICARE, OTHER, SELFPAY ==
[2025-11-12] MEDS: BENADRYL 50.5 MG IV (09:35)
[2025-11-12 10:07] VITALS: BP 131/80
[2025-11-12 10:24] VITALS: BP 116/75
[2025-11-12 12:11] VITALS: BP 126/82
== END 2025-11-25 13:21 | disposition home or self-care (01) ==
LOC: OID 09:10
PROVIDERS: ATTENDING PHYSICIAN Internal Medicine Geriatric Medicine
DX: D50.8 Other iron deficiency anemias (principal); C73 Malignant neoplasm of thyroid gland; Z79.01 Long term (current) use of anticoagulants
CPT/HCPCS: 36415; 36430; 86850; 86900; 86901; 86920; 96365; P9016

== ENCOUNTER → 2025-11-13 11:26 | Outpatient (REF) | payer MEDICARE, OTHER, SELFPAY ==
[2025-11-13 12:31] LABS: ALT (SGPT) 18 U/L (0-35); AST (SGOT) 23 U/L (14-36); Albumin 4.5 g/dl (3.5-5.0); Alkaline Phosphatase 70 U/L (38-126); Blood Urea Nitrogen 16 mg/dl (7-17); Calcium 6.8 mg/dl (8.4-10.2); Carbon Dioxide 23 mmol/L (22-30); Chloride 102 mmol/L (98-107); Glucose 111 mg/dl (70-99); Potassium 3.9 mmol/L (3.5-5.1); Sodium 138 mmol/L (135-145); Total Protein 7.7 g/dl (6.3-8.2); eGFR > 60.00
[2025-11-13 16:14] LABS: Vitamin D, 25-OH*** 40.8 ng/mL (30-80)
[2025-11-13 16:28] LABS: TSH 2.88 uIU/ml (0.47-4.68)
== END ==
LOC: OLABPV 11:26
PROVIDERS: ATTENDING PHYSICIAN Physician Assistant
DX: G40.209 Localization-related (focal) (partial) symptomatic epilepsy and epileptic syndromes with complex partial seizures, not intractable, without status epilepticus (principal); C73 Malignant neoplasm of thyroid gland; E04.1 Nontoxic single thyroid nodule; E21.0 Primary hyperparathyroidism; E83.51 Hypocalcemia; E55.9 Vitamin D deficiency, unspecified
CPT/HCPCS: 36415; 80053; 82306; 82330; 83970; 84439; 84443

== ENCOUNTER → 2025-11-19 11:31 | Outpatient (REF) | payer MEDICARE, OTHER, SELFPAY ==
[2025-11-19 13:43] LABS: ALT (SGPT) 18 U/L (0-35); AST (SGOT) 22 U/L (14-36); Albumin 4.4 g/dl (3.5-5.0); Alkaline Phosphatase 58 U/L (38-126); Blood Urea Nitrogen 21 mg/dl (7-17); Calcium 8.7 mg/dl (8.4-10.2); Carbon Dioxide 22 mmol/L (22-30); Chloride 103 mmol/L (98-107); Glucose 105 mg/dl (70-99); Potassium 4.1 mmol/L (3.5-5.1); Sodium 138 mmol/L (135-145); Total Protein 7.8 g/dl (6.3-8.2); eGFR > 60.00
== END ==
LOC: OLABPV 11:31
PROVIDERS: ATTENDING PHYSICIAN Physician Assistant; REFERRING PHYSICIAN Specialist
DX: E21.0 Primary hyperparathyroidism (principal); E89.2 Postprocedural hypoparathyroidism; E83.51 Hypocalcemia; G40.209 Localization-related (focal) (partial) symptomatic epilepsy and epileptic syndromes with complex partial seizures, not intractable, without status epilepticus
CPT/HCPCS: 80053

== ENCOUNTER 2025-11-25 06:25 | Day surgery (SDC) | payer MEDICARE, OTHER, SELFPAY | END 2025-11-25 13:02 | disposition home or self-care (01) | LOC: GI 06:25 | PROVIDERS: ATTENDING PHYSICIAN Internal Medicine Gastroenterology | DX: D50.9 Iron deficiency anemia, unspecified (principal); K44.9 Diaphragmatic hernia without obstruction or gangrene; K31.7 Polyp of stomach and duodenum; K29.70 Gastritis, unspecified, without bleeding; K64.8 Other hemorrhoids; K57.30 Diverticulosis of large intestine without perforation or abscess without bleeding; K29.50 Unspecified chronic gastritis without bleeding | CPT/HCPCS: 43239; 88305; 88342 ==